=== PATIENT | male | born 1960 | race Caucasian/White ===

== ENCOUNTER → 2018-04-02 17:44 | Outpatient (CLI) | payer OTHER, SELFPAY ==
--- OUTSIDE RECORDS SUMMARY | 2018-05-20 02:34 | XMS RPT_ITS ---
:1960 Author Organization OHIP Care Team Providers Name Role Phone MASCI, AGUSTIN A Referring Unavailable MASCI, AGUSTIN A Referring Unavailable MASCI, AGUSTIN A Referring Unavailable PATRICIA PULLIAM (SAP SECURITY CONSULTANT) Attending Unavailable MASCI, AGUSTIN A Referring Unavailable MASCI, AGUSTIN A Referring Unavailable MASCI, AGUSTIN A Referring Unavailable MASCI, AGUSTIN A Referring Unavailable PATRICIA PULLIAM (SAP SECURITY CONSULTANT) Attending Unavailable MASCI, AGUSTIN A Referring Unavailable MASCI, AGUSTIN A Referring Unavailable MASCI, AGUSTIN A Referring Unavailable MASCI, AGUSTIN A Referring Unavailable PATRICIA PULLIAM (SAP SECURITY CONSULTANT) Attending Unavailable MASCI, AGUSTIN A Referring Unavailable MASCI, AGUSTIN A Referring Unavailable MASCI, AGUSTIN A Referring Unavailable MASCI, AGUSTIN A Attending Unavailable MASCI, AGUSTIN A Referring Unavailable MASCI, AGUSTIN A Admitting Unavailable MASCI, AGUSTIN A Attending Unavailable MASCI, AGUSTIN A Referring Unavailable MASCI, AGUSTIN A Attending Unavailable MASCI, AGUSTIN A Referring Unavailable MASCI, AGUSTIN A Referring Unavailable MASCI, AGUSTIN A Referring Unavailable MASCI, AGUSTIN A Referring Unavailable MASCI, AGUSTIN A Referring Unavailable MASCI, AGUSTIN A Referring Unavailable MASCI, AGUSTIN A Referring Unavailable MASCI, GAUSTIN A Referring Unavailable MASCI, AGUSTIN A Referring Unavailable MASCI, AGUSTIN A Referring Unavailable MASCI, AGUSTIN A Referring Unavailable MASCI, AGUSTIN A Attending Unavailable MASCI, AGUSTIN A Referring Unavailable MASCI, AGUSTIN A Referring Unavailable MASCI, AGUSTIN A Referring Unavailable MASCI, AGUSTIN A Referring Unavailable Masci, Agustin Attending Unavailable [facility] Unavailable Masci, Agustin Referring Unavailable PROBLEMS PROBLEMS DATE TYPE CONDITION / CODE ATTENDING STATUS SOURCE 04/02/2018 Active Multiple myeloma in NA Active [facility] relapse / Clinic Main C90.02(ICD-10) [place] [facility] 03/20/2018 Active Multiple myeloma not NA Active [facility] having achieved Clinic Other remission / [place] C90.00(ICD-10) Repository 03/20/2018 Active Other specified NA Active [facility] disorders of bone, Clinic Other unspecified site / [place] M89.8X9(ICD-10) Repository 09/27/2013 Active Disorder of bone, NA Active [facility] unspecified / Clinic Main M89.9(ICD-10) [place] [facility] 09/27/2013 Active Abnormal findings on NA Active [facility] diagnostic imaging of Clinic Main other parts of [place] musculoskeletal Repository system / R93.7(ICD-10) 10/30/2017 Active Low back pain / NA Active [facility] M54.5(ICD-10) Clinic Main [place] [facility] 07/25/2017 Active Unknown / PULLIAM, Active [facility] UNK(Unknown) PATRICIA (SAP SECURITY CONSULTANT) Clinic Main [place] [facility] 07/19/2017 Active Multiple myeloma in NA Active [facility] remission / Clinic Main C90.01(ICD-10) [place] [facility] PROCEDURES PROCEDURES No Procedure Records FoundRESULTS RESULTS [place] ABS GR + CBC Collected: 05/09/2018 Status: F Source: [place] 8:09 AM [facility] REPOSITORY TYPE CODE TESTS RESULT OUT OF REFERENCE UNITS RANGE LAB WWBC 3.70-11.00 k/uL Low [place] WBC 3.55 LAB WRBC 4.20-6.00 m/uL [place] RBC 4.46 LAB WHGB 13.0-17.0 g/dL [place] Hemoglobin 13.5 LAB WHCT 39.0-51.0 % [place] Hematocrit 40.3 LAB WMCV 80.0-100.0 fL [place] MCV 90.4 LAB WMCH 26.0-34.0 pg [place] MCH 30.3 LAB WMCHC 30.5-36.0 g/dL [place] MCHC 33.5 LAB WRDW 11.5-15.0 % [place] RDW 14.5 LAB WPLT 150-400 k/uL Low [place] Platelet Cnt 89 LAB WMPV 9.0-12.7 fL Low [place] MPV 8.7 Result Comment: Test performed at: [facility] [place], [address] [place] [address] Rd., [place] [address]. LAB ABGRAN 1.45-7.50 k/uL Absol Gran 2.31 Count OBSOLETE Observed: 05/09/2018 Status: COMPLETED Source: [place] 12:00 AM [facility] REPOSITORY Refill (HEMAWS) KEIKAITLYNN BALES ([id number]) 1960 M TRN Date Time Provider Department 05/09/18 AGUSTIN NEWTON During your visit today, we recorded the following information about you: JENNIE VENTURA RN, RN 05/09/2018 10:12 AM Signed Patient phones requesting refills as follows: Pending Prescriptions Disp Refills OXYCODONE-ACETAMINOPHEN 5 MG-325 MG TABLET 90 tablet 0 Sig: Take 1-2 tablets by mouth every 6 hours as needed for up to 14 days. MOR Class: C-II DARI: No Please review and advise. JENNIE VENTURA RN Allergies As of Date: 05/09/2018 Noted Allergy Reaction ZOMETA (ZOLEDRONIC ACID) 11/21/2013 14 - Other: See Comments Comments: Severe chest pain, nausea, body aches, seizures. Tolerated pamidronate. PENICILLINS 09/27/2013 4 - Hives Date Reviewed: 05/02/2018 Reviewed by: Farheen Perez (Rn) FRANCISCO Mendez - Fully Assessed Reason for Visit: Refill Request [94] Visit Diagnoses:Multiple myeloma not having achieved remission (HCC) [C90.00] Bone pain [M89.8X9] Prescriptions as of 05/09/2018 Sig: OXYCODONE-ACETAMINOPHEN 5 MG-* Take 1-2 tablets by mouth gillian* ACYCLOVIR 400 MG TABLET Take 1 tablet by mouth twice * IBUPROFEN PM ORAL Take 2 tablets by mouth at be* ONDANSETRON HCL 8 MG TABLET Take 1 tablet by mouth every * ACETAMINOPHEN 500 MG TABLET Take 1,000 mg by mouth twice * NEBIVOLOL 10 MG TABLET Take 10 mg by mouth once hafsa* Problem List As Of Date 05/09/2018 Noted Resolved Splenomegaly [R16.1] INVALID FOR* Abnormal bone radiograph [R93.7] INVALID FOR* Lytic lesion of bone on x-ray [M89.9] INVALID FOR* Multiple myeloma (HCC) [C90.00] INVALID FOR* More... Chronic back pain greater than 3 months duratio*INVALID FOR* Chronic pain [G89.29] INVALID FOR* More... Autologous bone marrow transplantation status (*INVALID FOR* More... Hypertension [I10] INVALID FOR* More... Immunodeficiency (HCC) [D84.9] INVALID FOR* More... CINV (chemotherapy-induced nausea and vomiting)*INVALID FOR* More... Constipation [K59.00] INVALID FOR* More... Pancytopenia due to chemotherapy (HCC) [D61.810]INVALID FOR* More... Hypokalemia [E87.6] INVALID FOR* More... Transaminitis [R74.0] INVALID FOR* Chronic bilateral low back pain without sciatic*INVALID FOR* Encounter Status:Closed by AGUSTIN NEWTON DO on 05/09/18 PROTEIN ELEC,UR RAND Collected: 05/01/2018 Status: F Source: [place] 11:08 AM [facility] REPOSITORY TYPE CODE TESTS RESULT OUT OF REFERENCE UNITS RANGE LAB UTPR 0-20 mg/dL Protein Urine Random <4 LAB UALB % Albumin 41.0 LAB UA1G >0 % Alpha 1 Globulin 12.2 LAB UA2G % Alpha 2 Globulin 18.7 LAB UBEG % Beta Globulin 19.4 LAB UGAG % Gamma Globulin 8.7 LAB UPEINT Interpretation SEE COMMENT Result Comment: No definitive M protein is identified on protein electrophoresis. LAB UPESTF Staff Reviewed by Review Jony Mesa M.D., PhD ([id number]) Performed By: #### UEPG, URMPA #### [facility] [address] [place] [address] MONOCLONAL PROT UR Collected: 05/01/2018 Status: F Source: [place] 11:08 AM [facility] REPOSITORY TYPE CODE TESTS RESULT OUT OF REFERENCE UNITS RANGE LAB UMPA No M protein is identified. No UMPA M protein is Result identified. LAB UMPSTF UMPA Reviewed by Staff Review Jony Mesa M.D., PhD ([id number]) Performed By: #### UEPGAIDE #### [facility] [address] [place] [id number] PROGRESS Observed: 05/01/2018 Status: COMPLETED Source: [place] 10:34 AM [facility] REPOSITORY HNO ID: [id number] Author: Agustin Newton Service: (none) Author Type: Physician Type: Progress Notes Filed: 05/01/2018 10:50 AM Note Text: Diagnosis: 1) Multiple myeloma t(11;14) IgG kappa. Bone marrow biopsy 2013: [place] restricted plasma cells. Could not quantify well--bloody aspirate, but nearly all plasma cells. Flow cytometry confirmed. FISH positive for IGH/CCND1 t(11;14). Initial bone survey IMPRESSION: 1. Suggest lucent or lytic lesion midshaft RIGHT femur 2. Question of a vague lucency in the distal femur on the LEFT side 3. Lucency projecting over L2 and a lateral view may be due to bowel gas. CT or MRI would be suggested since there was concern with this area on an outside study. 4. No evidence of paraspinal or extrapleural masses. HPI: The patient is a 57-year-old male who had cervical fusion surgery about 4 years prior to presentation here. Had been seeing a [facility] physician for about a year and half for low back pain. [facility] 2013, he was having more pain and presented to the ED at [facility]. CT scan A/P done 09/15/2013 revealed a normal-appearing liver as well as gallbladder next her hepatobiliary system. There was splenomegaly with the spleen measuring 16.5 cm in length. The only other abnormality was a diffuse degenerative changes of visualized lumbar spine with a 2.5 cm lucent lesion on the right side of the L2 vertebral body. There was minimal cortical disruption anterior laterally in the lesion was not present in a prior MRI study of 07/30/2012. CBC was significant only for mild increase in platelets. Had bone scan done as outpatient 09/19/2013 that showed mild increase in activity in mid right femur of questionable etiology. Back pain was the only symptom he had--Started working out more in April and was purposely trying to lose weight. Initial therapy with Rd. Underwent autologous SCT--Patient's stem cells were mobilized with filgrastim and plerixafor. Patient collected CD34/kg 5.60 x 106 over 1 collection day. Nausea, vomiting, diarrhea and headache after plerixafor. 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 Day: +11. Counts recovered. Discharge today. Protocol(s): Auto 3422 1C Melphalan 200 Preparative regimen: Melphalan Mobilization regimen: G+P Stem cell source: apheresis CD34 cell dose (x10e6/kg): 5.6 Tolerated well with mild mucositis. No NF. N/V with melphalan. Previous therapy: 1) Rd. 2) Autologous BMT. 3) Revlimid maintenance through 08/2016. Stopped due to diarrhea. Lab work 02/2018 suggested relapse. PET 03/20/2018: IMPRESSION: 1. ?NECK: No FDG avid neoplastic process. No mass, adenopathy, or fluid collection. 2. ?CHEST: No FDG avid neoplastic process. ?No mass, adenopathy, or fluid collection. 3. ?ABDOMEN/PELVIS: No FDG avid neoplastic process. ?No mass, adenopathy, or fluid collection. 4. ?EXTREMITIES/SKELETON: ?Foci of increased FDG uptake in the humeri and right femur, likely related to the patient's known multiple myeloma. Bone marrow biopsy 03/14/2018: BONE MARROW, ASPIRATE SMEARS AND CLOT SECTION WITH PERIPHERAL BLOOD SMEAR: - CELLULAR MARROW WITH TRILINEAGE HEMATOPOIESIS AND MILD ERYTHROID PREDOMINANCE. - PERSISTENT/RECURRENT PLASMA CELL NEOPLASM, KAPPA MONOTYPIC (LESS THAN 5% OF CLOT SECTION CELLULARITY). - ADEQUATE STORAGE IRON. - SEE COMMENT. Current therapy: 1) Daratumumab/bortezomib/dex. Started 04/04/2018. 1) Pamidronate every 3 months (Zometa caused severe flu-like symptoms). Presents for ongoing management. Interim history: Tolerating therapy very well. Minor infusion reaction day 1. Pain under good control. He takes Percocet on a regular basis and this really helps with his pain. He is able to continue work full-time. No consistent symptoms of sensory neuropathy. Occasional fatigued. PMH, medications and allergies as below personally reviewed by me today. Any changes documented in appropriate section. ROS: Constitutional: See above. Neuro: Denies [place], vertigo, dizziness and imbalance. HEENT: No recent change in voice, vision or hearing. Resp: Denies cough, wheeze and hemoptysis. Denies shortness of breath at rest. CVS: Denies exertional chest pain, PND, orthopnea and LE edema. GI: Denies dysgeusia. Denies symptoms of stomatitis. Denies dysphagia and odynophagia. Denies reflux, n/v and abdominal pain. : Denies dysuria or gross hematuria. No symptoms of bladder outlet obstruction. Endo: Denies hot flashes. Denies polyuria and polydipsia. Denies heat and cold intolerance. Musculoskeletal: See above. Derm: Denies rash. Denies jaundice and diffuse pruritis. Heme: Denies unusual bleeding and unexplained bruising. Psych: Normal mood. PHYSICAL EXAM: Vitals: Blood pressure 132/89, pulse 62, temperature 37.3 ?C (99.1 ?F), temperature source Oral, weight 116.1 kg (256 lb). Well-appearing and in no acute distress. EYES: Sclerae are anicteric bilaterally. ENT: Oral mucosa is unremarkable. There is no sign of thrush or mucositis. NECK: Supple. LYMPHATIC: There is no palpable cervical or supraclavicular adenopathy. RESPIRATORY: Inspiratory breath sounds are of normal intensity in all contreras. No rales, wheezes or rhonchi. CARDIOVASCULAR: Rhythm is regular. Normal intensity S1/S2. There is no gallop or murmur. ABDOMEN: The abdomen is nondistended. No organomegaly. No tenderness. Extremities: No swelling or edema. SKIN: No jaundice or rash. No petechiae. 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 No focal motor weakness. DTRs are symmetric and normal. MUSCULOSKELETAL: No muscle wasting. ASSESSMENT/PLAN: 1) Multiple myeloma. Had lytic bone lesions with no other end organ damage on original presentation. Tolerated and responded to Rd well. Resolution of low level serum MP following first cycle. s/p ASCT. -Maintenance Revlimid stopped after 2 years of therapy secondary to ongoing diarrhea. -Bone marrow biopsy and PET scan 03/2018 suggested relapse disease. -He has mood swings and hyperactivity with higher dose dexamethasone. -Pain well controlled. Plan: -Continue current therapy. -Dex IV when gets Darzalex. -Can stop dexamethasone days 2 and 3 of each Darzalex. -Okay to continue Percocet. -Monthly myeloma labs for now. He understands there will likely be an increase in IgG kappa secondary to daratumumab. Supportive care: No anemia. No hypercalcemia. Standard risk for VTE risk--Off ASA. No ID issues at present--continue acyclovir. Agustin Newton DO CNOVSP Observed: 05/01/2018 Status: COMPLETED Source: [place] 10:30 AM [facility] REPOSITORY Visit (SP) Office ([place]) KAITLYNN CHOUDHURY ([id number]) 1960 M TRN Date Time Provider Department 05/01/18 10:30 AM AGUSTIN NEWTON During your visit today, we recorded the following information about you: Temperature Pulse Blood pressure Weight 99.1 degrees 62/minute 132/89 116.1 kg Agustin Newton DO 05/01/2018 10:50 AM Signed Diagnosis: 1) Multiple myeloma t(11;14) IgG kappa. Bone marrow biopsy 2013: [place] restricted plasma cells. Could not quantify well--bloody aspirate, but nearly all plasma cells. Flow cytometry confirmed. FISH positive for IGH/CCND1 t(11;14). Initial bone survey IMPRESSION: 1. Suggest lucent or lytic lesion midshaft RIGHT femur 2. Question of a vague lucency in the distal femur on the LEFT side 3. Lucency projecting over L2 and a lateral view may be due to bowel gas. CT or MRI would be suggested since there was concern with this area on an outside study. 4. No evidence of paraspinal or extrapleural masses. HPI: The patient is a 57-year-old male who had cervical fusion surgery about 4 years prior to presentation here. Had been seeing a [facility] physician for about a year and half for low back pain. 2013, he was having more pain and presented to the ED at [facility]. CT scan A/P done 09/15/2013 revealed a normal-appearing liver as well as gallbladder next her hepatobiliary system. There was splenomegaly with the spleen measuring 16.5 cm in length. The only other abnormality was a diffuse degenerative changes of visualized lumbar spine with a 2.5 cm lucent lesion on the right side of the L2 vertebral body. There was minimal cortical disruption anterior laterally in the lesion was not present in a prior MRI study of 07/30/2012. CBC was significant only for mild increase in platelets. Had bone scan done as outpatient 09/19/2013 that showed mild increase in activity in mid right femur of questionable etiology. Back pain was the only symptom he had--Started working out more in April and was purposely trying to lose weight. Initial therapy with Rd. Underwent autologous SCT--Patient's stem cells were mobilized with filgrastim and plerixafor. Patient collected CD34/kg 5.60 x 106 over 1 collection day. Nausea, vomiting, diarrhea and headache after plerixafor. 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 Day: +11. Counts recovered. Discharge today. Protocol(s): Auto 3422 1C Melphalan 200 Preparative regimen: Melphalan Mobilization regimen: G+P Stem cell source: apheresis CD34 cell dose (x10e6/kg): 5.6 Tolerated well with mild mucositis. No NF. N/V with melphalan. Previous therapy: 1) Rd. 2) Autologous BMT. 3) Revlimid maintenance through 08/2016. Stopped due to diarrhea. Lab work 02/2018 suggested relapse. PET 03/20/2018: IMPRESSION: 1. ?NECK: No FDG avid neoplastic process. No mass, adenopathy, or fluid collection. 2. ?CHEST: No FDG avid neoplastic process. ?No mass, adenopathy, or fluid collection. 3. ?ABDOMEN/PELVIS: No FDG avid neoplastic process. ?No mass, adenopathy, or fluid collection. 4. ?EXTREMITIES/SKELETON: ?Foci of increased FDG uptake in the humeri and right femur, likely related to the patient's known multiple myeloma. Bone marrow biopsy 03/14/2018: BONE MARROW, ASPIRATE SMEARS AND CLOT SECTION WITH PERIPHERAL BLOOD SMEAR: - CELLULAR MARROW WITH TRILINEAGE HEMATOPOIESIS AND MILD ERYTHROID PREDOMINANCE. - PERSISTENT/RECURRENT PLASMA CELL NEOPLASM, KAPPA MONOTYPIC (LESS THAN 5% OF CLOT SECTION CELLULARITY). - ADEQUATE STORAGE IRON. - SEE COMMENT. Current therapy: 1) Daratumumab/bortezomib/dex. Started 04/04/2018. 1) Pamidronate every 3 months (Zometa caused severe flu-like symptoms). Presents for ongoing management. Interim history: Tolerating therapy very well. Minor infusion reaction day 1. Pain under good control. He takes Percocet on a regular basis and this really helps with his pain. He is able to continue work full-time. No consistent symptoms of sensory neuropathy. Occasional fatigued. PMH, medications and allergies as below personally reviewed by me today. Any changes documented in appropriate section. ROS: Constitutional: See above. Neuro: Denies [place], vertigo, dizziness and imbalance. HEENT: No recent change in voice, vision or hearing. Resp: Denies cough, wheeze and hemoptysis. Denies shortness of breath at rest. CVS: Denies exertional chest pain, PND, orthopnea and LE edema. GI: Denies dysgeusia. Denies symptoms of stomatitis. Denies dysphagia and odynophagia. Denies reflux, n/v and abdominal pain. : Denies dysuria or gross hematuria. No symptoms of bladder outlet obstruction. Endo: Denies hot flashes. Denies polyuria and polydipsia. Denies heat and cold intolerance. Musculoskeletal: See above. Derm: Denies rash. Denies jaundice and diffuse pruritis. Heme: Denies unusual bleeding and unexplained bruising. Psych: Normal mood. PHYSICAL EXAM: Vitals: Blood pressure 132/89, pulse 62, temperature 37.3 ?C (99.1 ?F), temperature source Oral, weight 116.1 kg (256 lb). Well-appearing and in no acute distress. EYES: Sclerae are anicteric bilaterally. ENT: Oral mucosa is unremarkable. There is no sign of thrush or mucositis. NECK: Supple. LYMPHATIC: There is no palpable cervical or supraclavicular adenopathy. RESPIRATORY: Inspiratory breath sounds are of normal intensity in all contreras. No rales, wheezes or rhonchi. CARDIOVASCULAR: Rhythm is regular. Normal intensity S1/S2. There is no gallop or murmur. ABDOMEN: The abdomen is nondistended. No organomegaly. No tenderness. Extremities: No swelling or edema. SKIN: No jaundice or rash. No petechiae. 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 No focal motor weakness. DTRs are symmetric and normal. MUSCULOSKELETAL: No muscle wasting. ASSESSMENT/PLAN: 1) Multiple myeloma. Had lytic bone lesions with no other end organ damage on original presentation. Tolerated and responded to Rd well. Resolution of low level serum MP following first cycle. s/p ASCT. -Maintenance Revlimid stopped after 2 years of therapy secondary to ongoing diarrhea. -Bone marrow biopsy and PET scan 03/2018 suggested relapse disease. -He has mood swings and hyperactivity with higher dose dexamethasone. -Pain well controlled. Plan: -Continue current therapy. -Dex IV when gets Darzalex. -Can stop dexamethasone days 2 and 3 of each Darzalex. -Okay to continue Percocet. -Monthly myeloma labs for now. He understands there will likely be an increase in IgG kappa secondary to daratumumab. Supportive care: No anemia. No hypercalcemia. Standard risk for VTE risk--Off ASA. No ID issues at present--continue acyclovir. Agustin Newton DO Referring Provider: AGUSTIN NEWTON [[id number]] Allergies As of Date: 05/01/2018 Noted Allergy Reaction ZOMETA (ZOLEDRONIC ACID) 11/21/2013 14 - Other: See Comments Comments: Severe chest pain, nausea, body aches, seizures. Tolerated pamidronate. PENICILLINS 09/27/2013 4 - Hives Date Reviewed: 05/01/2018 Reviewed by: Nia German - Fully Assessed Reason for Visit: Established Patient [[id number]] Primary Visit Diagnosis:Multiple myeloma in relapse (HCC) [C90.02] Follow-up and Disposition History Recorded Prescriptions as of 05/01/2018 Sig: OXYCODONE-ACETAMINOPHEN 5 MG-* Take 1-2 tablets by mouth gillian* ACYCLOVIR 400 MG TABLET Take 1 tablet by mouth twice * IBUPROFEN PM ORAL Take 2 tablets by mouth at be* ONDANSETRON HCL 8 MG TABLET Take 1 tablet by mouth every * ACETAMINOPHEN 500 MG TABLET Take 1,000 mg by mouth twice * NEBIVOLOL 10 MG TABLET Take 10 mg by mouth once hafsa* Problem List As Of Date 05/01/2018 Noted Resolved Splenomegaly [R16.1] INVALID FOR* Abnormal bone radiograph [R93.7] INVALID FOR* Lytic lesion of bone on x-ray [M89.9] INVALID FOR* Multiple myeloma (HCC) [C90.00] INVALID FOR* More... Chronic back pain greater than 3 months duratio*INVALID FOR* Chronic pain [G89.29] INVALID FOR* More... Autologous bone marrow transplantation status (*INVALID FOR* More... Hypertension [I10] INVALID FOR* More... Immunodeficiency (HCC) [D84.9] INVALID FOR* More... CINV (chemotherapy-induced nausea and vomiting)*INVALID FOR* More... Constipation [K59.00] INVALID FOR* More... Pancytopenia due to chemotherapy (HCC) [D61.810]INVALID FOR* More... Hypokalemia [E87.6] INVALID FOR* More... Transaminitis [R74.0] INVALID FOR* Chronic bilateral low back pain without sciatic*INVALID FOR* Encounter Status:Closed by AGUSTIN NEWTON DO on 05/01/18 [place] CBC AND DIFF Collected: 05/01/2018 Status: F Source: [place] 10:16 AM [facility] REPOSITORY TYPE CODE TESTS RESULT OUT OF REFERENCE UNITS RANGE LAB WWBC 3.70-11.00 k/uL Low [place] WBC 3.40 LAB WRBC 4.20-6.00 m/uL [place] RBC 4.48 LAB WHGB 13.0-17.0 g/dL [place] Hemoglobin 13.6 LAB WHCT 39.0-51.0 % [place] Hematocrit 40.8 LAB WMCV 80.0-100.0 fL [place] MCV 91.1 LAB WMCH 26.0-34.0 pg [place] MCH 30.4 LAB WMCHC 30.5-36.0 g/dL [place] MCHC 33.3 LAB WRDW 11.5-15.0 % [place] RDW 14.4 LAB WPLT 150-400 k/uL Low [place] Platelet Cnt 127 LAB WMPV 9.0-12.7 fL Low [place] MPV 8.8 Result Comment: Test performed at: [facility] [place], [facility] [address] [place] [address]. LAB WNEUT % [place] Neut% 64.1 LAB WLYMP % [place] Lymp% 24.4 LAB WMONOC % [place]% 11.5 LAB WEOS % [place] Eos% 0.0 LAB WBASO % [place] Baso% 0.0 LAB WANEUT 1.45-7.5 k/uL 0 [place] Abs Neut 2.18 LAB WALYMP 1.00-4.0 k/uL Low 0 [place] Abs Lymp 0.83 LAB WAMONO <0.87 k/uL [place] Abs [place] 0.39 LAB WAEOS <0.46 k/uL [place] Abs Eos <0.03 LAB WABASO <0.11 k/uL [place] Abs Baso <0.03 COMP METABOLIC PANEL Collected: 05/01/2018 Status: F Source: [place] 10:16 AM [facility] REPOSITORY TYPE CODE TESTS RESULT OUT OF REFERENCE UNITS RANGE LAB TP 6.3-8.0 g/dL Protein, Low Total 6.0 LAB ALB 3.9-4.9 g/dL Albumin 4.1 LAB CA 8.5-10.2 mg/dL Calcium, Total 9.2 LAB TBIL 0.2-1.3 mg/dL Bilirubin, Total 0.5 LAB ALKP 38-113 U/L Alkaline Phosphatase 105 LAB AST 14-40 U/L AST 31 LAB GLU 74-99 mg/dL Glucose High 112 LAB BUN 9-24 mg/dL BUN 10 LAB CRET 0.73-1.22 mg/dL Creatinine 1.01 LAB NA 136-144 mmol/L Sodium 136 LAB K 3.7-5.1 mmol/L Potassium 4.0 LAB CL 97-105 mmol/L Chloride 101 LAB CO2 22-30 mmol/L CO2 28 LAB AGAP 9-18 mmol/L Anion Gap Low 7 LAB ALT 10-54 U/L ALT High 64 LAB GFRAA eGFR- >60 Amer. LAB GFRNAA . eGFR-All Other Races >60 Result Comment: eGFR (Estimated GFR) Units of measure: mL/min/1.73 meters squared eGFR is derived from the reexpressed MDRD Study equation using the following parameters: serum creatinine, age, gender and race. The creatinine assay has been calibrated to be traceable to IDMS. An eGFR <60 mL/min/1.73m2 for >3 months is consistent with chronic kidney disease. Refer to KDOQI guidelines for clinical interpretation. In patients with unstable renal function, e.g. those with acute kidney injury, the eGFR may not accurately reflect actual GFR. B2 MICROGLOBULIN Collected: 05/01/2018 Status: F Source: [place] 10:16 AM [facility] REPOSITORY TYPE CODE TESTS RESULT OUT OF REFERENCE UNITS RANGE LAB B2M 0.8-2.2 mg/L B2 Microglobulin High 2.3 Performed By: #### B2RANDY Guallpa SEPG #### [facility] [address], [place] [id number] MONCLNL PROTEIN, SER Collected: 05/01/2018 Status: F Source: [place] 10:16 AM [facility] REPOSITORY TYPE CODE TESTS RESULT OUT OF REFERENCE UNITS RANGE LAB MPAIGG 717-1411 mg/dL Low MPA Serum 487 IgG LAB MPAIGA 78-391 mg/dL Low MPA Serum 11 IgA LAB MPAIGM 53-334 mg/dL Low MPA Serum 16 IgM LAB FKAPS 3.30-19.40 mg/L Low [place], 1.5 Free, Serum Result Comment: Rarely, increased serum free light chains values may not be detected due to antigen excess phenomenon. Results should always be correlated with other laboratory results and clinical findings. LAB FLAMS 5.7-26.3 mg/L Low Lambda, Free, Serum 0.7 Result Comment: Rarely, increased serum free light chains values may not be detected due to antigen excess phenomenon. Results should always be correlated with other laboratory results and clinical findings. LAB KLRAT 0.26-1.65 High K/L Ratio, Serum 2.14 LAB MPAR No M protein is identified. MPA Result Abnormal M protein is Alert present. LAB INTP MPA Interpretation SEE COMMENT Result Comment: Atypical restricted bands are present in the IgG and kappa regions. Consistent with IgG kappa monoclonal gammopathy. LAB MPASTF Staff Reviewed by Review Jony Mesa M.D., PhD ([id number]) Performed By: #### RANDY Lorenzo SEPG #### [facility] [address] [place], [place] [address] PROTEIN ELECTROPHOR. Collected: 05/01/2018 Status: F Source: [place] 10:16 AM [facility] REPOSITORY TYPE CODE TESTS RESULT OUT OF REFERENCE UNITS RANGE LAB TPSPE 6.0-8.4 g/dL Total Protein, SPE 6.0 LAB ALBE 3.37-4.23 gm/dL Albumin 3.51 LAB A1GL 0.18-0.31 gm/dL Alpha 1 Globulin 0.25 LAB A2GL 0.52-0.97 gm/dL Alpha 2 Globulin 0.70 LAB BEGL 0.84-1.36 gm/dL Beta Globulin 0.97 LAB GAGL 0.70-1.44 gm/dL Gamma Globulin Low 0.57 LAB SPEINT Interpretation SEE COMMENT Result Comment: An M protein is identified on protein electrophoresis. See separate immunofixation report for characterization of the M protein. LAB LOC M Protein Gamma Location fraction LAB GPERDL 0.00 gm/dL M Wilder 0.14 High Concentratn LAB SPESTF SPE Staff Review Reviewed by Jony Mesa M.D., PhD ([id number]) Performed By: #### RANDY Lorenzo SEPG #### [facility] [place] [facility] [address] [id number] CNOVSP Observed: 04/25/2018 Status: COMPLETED Source: [place] 9:30 AM [facility] REPOSITORY Visit (SP) Office (HEMAWS) KAITLYNN CHOUDHURY ([id number]) 1960 M TRN Date Time Provider Department 04/25/18 9:30 AM TREATMENT RM 13 [facility] During your visit today, we recorded the following information about you: Temperature Pulse Blood pressure Weight 97.9 degrees 72/minute 132/76 115.2 kg Referring Provider: AGUSTIN NEWTON [[id number]] Allergies As of Date: 04/25/2018 Noted Allergy Reaction ZOMETA (ZOLEDRONIC ACID) 11/21/2013 14 - Other: See Comments Comments: Severe chest pain, nausea, body aches, seizures. Tolerated pamidronate. PENICILLINS 09/27/2013 4 - Hives Date Reviewed: 04/25/2018 Reviewed by: Jennie Ventura RN, RN - Fully Assessed Reason for Visit: Chemotherapy Treatment [771] Primary Visit Diagnosis:Multiple myeloma in relapse (HCC) [C90.02] Order(s):TREATMENT PARAMETERS [[id number]] Order #: [id number]: 1 HEMONC NURSING COMMUNICATION [[id number]] Order #: [id number]: 1 STANDING HEMONC NURSING COMMUNICATION [[id number]] Order #: [id number]: 1 HEMONC NURSING COMMUNICATION [[id number]] Order #: [id number]: 1 STANDING HEMONC NURSING COMMUNICATION [[id number]] Order #: [id number]: 1 STANDING [] dexamethasone 10 mg/NS 50 mL (PYXIS) 10 mg ivpbDisp: Rfl: [] diphenhydrAMINE 50 mg injection (BENADRYL)Disp: Rfl: [] acetaminophen 1,000 mg tab(s) (TYLENOL)Disp: Rfl: [] famotidine 40 mg tab(s) (PEPCID)Disp: Rfl: [] daratumumab 1,800 mg in NaCl 0.9% 500 mL (DARZALEX)Disp: Rfl: NaCl 0.9% iv infusionDisp: Rfl: diphenhydrAMINE 50 mg injection (BENADRYL)Disp: Rfl: hydrocortisone sodium succinate (PF) 100 mg injection (Solu-CORTEF)Disp: Rfl: EPINEPHrine HCl (PF) 1 mg/mL (1 mL) 0.3 mg injectionDisp: Rfl: Prescriptions as of 04/25/2018 Sig: ACETAMINOPHEN 500 MG TABLET Take 1,000 mg by mouth twice * ACYCLOVIR 400 MG TABLET Take 1 tablet by mouth twice * DEXAMETHASONE 4 MG TABLET Take 1 tablet PO with breakfa* IBUPROFEN PM ORAL Take 2 tablets by mouth at be* NEBIVOLOL 10 MG TABLET Take 10 mg by mouth once hafsa* ONDANSETRON HCL 8 MG TABLET Take 1 tablet by mouth every * OXYCODONE-ACETAMINOPHEN 5 MG-* Take 1-2 tablets by mouth gillian* Problem List As Of Date 04/25/2018 Noted Resolved Splenomegaly [R16.1] INVALID FOR* Abnormal bone radiograph [R93.7] INVALID FOR* Lytic lesion of bone on x-ray [M89.9] INVALID FOR* Multiple myeloma (HCC) [C90.00] INVALID FOR* More... Chronic back pain greater than 3 months duratio*INVALID FOR* Chronic pain [G89.29] INVALID FOR* More... Autologous bone marrow transplantation status (*INVALID FOR* More... Hypertension [I10] INVALID FOR* More... Immunodeficiency (HCC) [D84.9] INVALID FOR* More... CINV (chemotherapy-induced nausea and vomiting)*INVALID FOR* More... Constipation [K59.00] INVALID FOR* More... Pancytopenia due to chemotherapy (HCC) [D61.810]INVALID FOR* More... Hypokalemia [E87.6] INVALID FOR* More... Transaminitis [R74.0] INVALID FOR* Chronic bilateral low back pain without sciatic*INVALID FOR* Encounter Status:Closed by JENNIE VENTURA on 04/25/18 [place] ABS GR + CBC Collected: 04/25/2018 Status: F Source: [place] 9:23 AM [facility] REPOSITORY TYPE CODE TESTS RESULT OUT OF REFERENCE UNITS RANGE LAB WWBC 3.70-11.00 k/uL Low [place] WBC 3.33 LAB WRBC 4.20-6.00 m/uL [place] RBC 4.66 LAB WHGB 13.0-17.0 g/dL [place] Hemoglobin 14.2 LAB WHCT 39.0-51.0 % [place] Hematocrit 42.6 LAB WMCV 80.0-100.0 fL [place] MCV 91.4 LAB WMCH 26.0-34.0 pg [place] MCH 30.5 LAB WMCHC 30.5-36.0 g/dL [place] MCHC 33.3 LAB WRDW 11.5-15.0 % [place] RDW 14.7 LAB WPLT 150-400 k/uL [place] Platelet Cnt 108 LAB WMPV 9.0-12.7 fL [place] MPV 9.5 Result Comment: Test performed at: [facility], [address] [place] [address]. LAB ABGRAN 1.45-7.50 k/uL Absol Gran 2.14 Count SHARON ABS GR + CBC Collected: 04/18/2018 Status: F Source: [place] 8:08 AM [facility] REPOSITORY TYPE CODE TESTS RESULT OUT OF REFERENCE UNITS RANGE LAB WWBC 3.70-11.00 k/uL [place] WBC 4.96 LAB WRBC 4.20-6.00 m/uL [place] RBC 4.66 LAB WHGB 13.0-17.0 g/dL [place] Hemoglobin 14.3 LAB WHCT 39.0-51.0 % [place] Hematocrit 42.4 LAB WMCV 80.0-100.0 fL [place] MCV 91.0 LAB WMCH 26.0-34.0 pg [place] MCH 30.7 LAB WMCHC 30.5-36.0 g/dL [place] MCHC 33.7 LAB WRDW 11.5-15.0 % [place] RDW 14.6 LAB WPLT 150-400 k/uL Low [place] Platelet Cnt 116 LAB WMPV 9.0-12.7 fL [place] MPV 9.2 Result Comment: Test performed at: [facility] [place], [address] [place] [address]. LAB ABGRAN 1.45-7.50 k/uL Absol Gran 3.71 Count CNPN Observed: 04/12/2018 Status: COMPLETED Source: [place] 12:00 AM [facility] REPOSITORY Telephone (HEMAVN) KAITLYNN CHOUDHURY ([id number]) 1960 M TRN Date Time Provider Department 04/12/18 MADELINE LAUREANO (RN) HEMAVN During your visit today, we recorded the following information about you: Madeline Laureano RN, RN 04/12/2018 12:05 PM Signed TOXICITY CHECK Does patient have: Headache: Yes, intermittently since last night. No dizziness or lightheadedness. Goes away when he takes his pain medication. Appetite: no changes in appetite, appetite good Nausea: No Vomiting: No Fever: No Chills: No Cough: No Sore throat: No Heartburn: No. Diarrhea: yes, states it starts usually the 3rd day after chemo. States maybe 1-2 stools a day. Thinks it may be related to his diet than the chemo. He does not feel dehydrated. Drinks 6-7 glasses of fluids a day. Urine is not concentrated. He ran out of the lomotil that he had. Would like another prescription for it to use prn. Dr. Newton and nurse milli notified. Constipation: No Edema: No Energy level: Low Shortness of breath: No Pain: Yes, pain rated 6 on a scale of 0-10 (0=none, 10=worst). Location: legs. Pain medication helps this. Madeline Laureano RN April 12, 2018 12:01 PM Agustin Newton DO 04/12/2018 12:19 PM Signed Please see the note below. Madeline had asked me this upper message to send a new prescription for Lomotil. Since the diarrhea may not be completely due to chemotherapy, I recommend a trial of Imodium first. DO Rosy Mckay LPN 04/12/2018 12:30 PM Signed Patient aware and will trial Imodium first. Rosy Blackmon LPN Allergies As of Date: 04/12/2018 Noted Allergy Reaction ZOMETA (ZOLEDRONIC ACID) 11/21/2013 14 - Other: See Comments Comments: Severe chest pain, nausea, body aches, seizures. Tolerated pamidronate. PENICILLINS 09/27/2013 4 - Hives Date Reviewed: 04/11/2018 Reviewed by: Millicent Noble - Fully Assessed Reason for Visit: Care Coordination [3499] Cmt: toxicity check Prescriptions as of 04/12/2018 Sig: ACETAMINOPHEN 500 MG TABLET Take 1,000 mg by mouth twice * ACYCLOVIR 400 MG TABLET Take 1 tablet by mouth twice * DEXAMETHASONE 4 MG TABLET Take 1 tablet PO with breakfa* IBUPROFEN PM ORAL Take 2 tablets by mouth at be* NEBIVOLOL 10 MG TABLET Take 10 mg by mouth once hafsa* ONDANSETRON HCL 8 MG TABLET Take 1 tablet by mouth every * OXYCODONE-ACETAMINOPHEN 5 MG-* Take 1-2 tablets by mouth gillian* Problem List As Of Date 04/12/2018 Noted Resolved Splenomegaly [R16.1] INVALID FOR* Abnormal bone radiograph [R93.7] INVALID FOR* Lytic lesion of bone on x-ray [M89.9] INVALID FOR* Multiple myeloma (HCC) [C90.00] INVALID FOR* More... Chronic back pain greater than 3 months duratio*INVALID FOR* Chronic pain [G89.29] INVALID FOR* More... Autologous bone marrow transplantation status (*INVALID FOR* More... Hypertension [I10] INVALID FOR* More... Immunodeficiency (HCC) [D84.9] INVALID FOR* More... CINV (chemotherapy-induced nausea and vomiting)*INVALID FOR* More... Constipation [K59.00] INVALID FOR* More... Pancytopenia due to chemotherapy (HCC) [D61.810]INVALID FOR* More... Hypokalemia [E87.6] INVALID FOR* More... Transaminitis [R74.0] INVALID FOR* Chronic bilateral low back pain without sciatic*INVALID FOR* Encounter Status:Closed by MADELINE LAUREANO on 04/12/18 [place] ABS GR + CBC Collected: 04/11/2018 Status: F Source: [place] 8:03 AM [facility] REPOSITORY TYPE CODE TESTS RESULT OUT OF REFERENCE UNITS RANGE LAB WWBC 3.70-11.00 k/uL [place] WBC 3.48 LAB WRBC 4.20-6.00 m/uL [place] RBC 4.33 LAB WHGB 13.0-17.0 g/dL [place] Hemoglobin 13.1 LAB WHCT 39.0-51.0 % [place] Hematocrit 39.0 LAB WMCV 80.0-100.0 fL [place] MCV 90.1 LAB WMCH 26.0-34.0 pg [place] MCH 30.3 LAB WMCHC 30.5-36.0 g/dL [place] MCHC 33.6 LAB WRDW 11.5-15.0 % [place] RDW 14.3 LAB WPLT 150-400 k/uL [place] Platelet Cnt 128 LAB WMPV 9.0-12.7 fL [place] MPV 8.5 Result Comment: Test performed at: [facility], [address] [place] [address] Rd[address] [place] [address]. LAB ABGRAN 1.45-7.50 k/uL Absol Gran 2.09 Count CNPN Observed: 04/05/2018 Status: COMPLETED Source: [place] 12:00 AM [facility] REPOSITORY Telephone (HEMAVN) KEIKAITLYNN BALES ([id number]) 1960 M TRN Date Time Provider Department 04/05/18 MADELINE LAUREANO (RN) [place] During your visit today, we recorded the following information about you: Madeline Laureano RN, RN 04/05/2018 3:03 PM Signed CYCLE 1/DAY 1 POST TREATMENT CALL Today's date: April 05, 2018 Treatment Regimen: Darzalex/Velcade C1D1 Date: 04/04/18 Called patient to follow-up on symptom management. Spoke with patient. Patient reports treatment related symptoms: Yes. Pt reports feeling good today. No nausea/vomiting or diarrhea. States last night he noticed a 2 red spot on his abdomen where he received the chemotherapy shot yesterday. Denies swelling, pain, burning or itching. Dr. Newton and office staff notified. Patient reports adequate fluid and nutrition intake: NO. States drinking without difficulty. States just doesn't feel hungry. Encouraged small frequent meals. Reinforced applicable treatment education based on current and anticipated symptoms. Patient instructed to contact office or after hours Hematology/Oncology fellow for: temperature ? 100.4; questions or concerns. Contact information provided. FRANCISCO Tolliver DO 04/05/2018 3:04 PM Signed I believe this is just a localized reaction of Velcade and is of no consequence. DO Kate Mckay LPN, KENN 04/05/2018 3:41 PM Signed Pt. Notified of physician response, voiced understanding. Instructed to keep eye on area. Kate Mcgee LPN Allergies As of Date: 04/05/2018 Noted Allergy Reaction ZOMETA (ZOLEDRONIC ACID) 11/21/2013 14 - Other: See Comments Comments: Severe chest pain, nausea, body aches, seizures. Tolerated pamidronate. PENICILLINS 09/27/2013 4 - Hives Date Reviewed: 04/04/2018 Reviewed by: Ludmila Guallpa (Rn) FRANCISCO Norman - Fully Assessed Reason for Visit: Care Coordination [3491] Cmt: C1D1 call Prescriptions as of 04/05/2018 Sig: ACETAMINOPHEN 500 MG TABLET Take 1,000 mg by mouth twice * ACYCLOVIR 400 MG TABLET Take 1 tablet by mouth twice * DEXAMETHASONE 4 MG TABLET Take 1 tablet PO with breakfa* IBUPROFEN PM ORAL Take 2 tablets by mouth at be* NEBIVOLOL 10 MG TABLET Take 10 mg by mouth once hafsa* ONDANSETRON HCL 8 MG TABLET Take 1 tablet by mouth every * OXYCODONE-ACETAMINOPHEN 5 MG-* Take 1-2 tablets by mouth gillian* Problem List As Of Date 04/05/2018 Noted Resolved Splenomegaly [R16.1] INVALID FOR* Abnormal bone radiograph [R93.7] INVALID FOR* Lytic lesion of bone on x-ray [M89.9] INVALID FOR* Multiple myeloma (HCC) [C90.00] INVALID FOR* More... Chronic back pain greater than 3 months duratio*INVALID FOR* Chronic pain [G89.29] INVALID FOR* More... Autologous bone marrow transplantation status (*INVALID FOR* More... Hypertension [I10] INVALID FOR* More... Immunodeficiency (HCC) [D84.9] INVALID FOR* More... CINV (chemotherapy-induced nausea and vomiting)*INVALID FOR* More... Constipation [K59.00] INVALID FOR* More... Pancytopenia due to chemotherapy (HCC) [D61.810]INVALID FOR* More... Hypokalemia [E87.6] INVALID FOR* More... Transaminitis [R74.0] INVALID FOR* Chronic bilateral low back pain without sciatic*INVALID FOR* Encounter Status:Closed by MADELINE LAUREANO on 04/05/18 PROGRESS Observed: 04/04/2018 Status: COMPLETED Source: [place] 10:28 AM [facility] [place] REPOSITORY HNO ID: [id number] Author: Nidhi Guerra (Sw) Service: (none) Author Type: Pattern Layout Worker Type: Progress Notes Filed: 04/04/2018 10:32 AM Note Text: Social Work Problem Referral Note INFORMATION/REFERRAL : Kaitlynn Choudhury 57 year old male was referred by family - Name: spouse to [facility] Social Work for the following reason(s): FMLA PERSONS INTERVIEWED: patient and family - Name: spouse INTERVENTION: Information AND Referral Service Co-ordination Affect/Mood: The patient is noted as appropriate IDENTIFIED PROBLEMS/NEEDS: FMLA Intervention/Referral to be provided:Arrangements made for continuity of care IMPRESSION/PLAN: CHRISTOPHE met with patient and his spouse to discuss spouse's FMLA needs. CHRISTOPHE completed and provided to doctor to review and sign. SW then provided back to patient's spouse and provided business card as well in case other needs come up. The paperwork provided was the FMLA paperwork for the patient, not the family member of the patient. CHRISTOPHE stated the forms are very similar, but to have them fax over the correct forms if needed. She is agreeable. Patient denies other needs. F/U APPOINTMENT: JULIO Steiner CNSW Observed: 04/04/2018 Status: COMPLETED Source: [place] 12:00 AM [facility] REPOSITORY Social Work ([place]) KAITLYNN CHOUDHURY ([id number]) 1960 M TRN Date Time Provider Department 04/04/18 NIDHI GUERRA) [place] During your visit today, we recorded the following information about you: JULIO Black 04/04/2018 10:32 AM Signed Social Work Problem Referral Note INFORMATION/REFERRAL : Kaitlynn Choudhury 57 year old male was referred by family - Name: spouse to [facility] Social Work for the following reason(s): FMLA PERSONS INTERVIEWED: patient and family - Name: spouse INTERVENTION: Information AND Referral Service Co-ordination Affect/Mood: The patient is noted as appropriate IDENTIFIED PROBLEMS/NEEDS: FMLA Intervention/Referral to be provided:Arrangements made for continuity of care IMPRESSION/PLAN: CHRISTOPHE met with patient and his spouse to discuss spouse's FMLA needs. CHRISTOPHE completed and provided to doctor to review and sign. SW then provided back to patient's spouse and provided business card as well in case other needs come up. The paperwork provided was the FMLA paperwork for the patient, not the family member of the patient. CHRISTOPHE stated the forms are very similar, but to have them fax over the correct forms if needed. She is agreeable. Patient denies other needs. F/U APPOINTMENT: JULIO Steiner Allergies As of Date: 04/04/2018 Noted Allergy Reaction ZOMETA (ZOLEDRONIC ACID) 11/21/2013 14 - Other: See Comments Comments: Severe chest pain, nausea, body aches, seizures. Tolerated pamidronate. PENICILLINS 09/27/2013 4 - Hives Date Reviewed: 04/04/2018 Reviewed by: Ludmila Guallpa (Rn) FRANCISCO Norman - Fully Assessed Reason for Visit: Social Work Services [507] Prescriptions as of 04/04/2018 Sig: ACETAMINOPHEN 500 MG TABLET Take 1,000 mg by mouth twice * ACYCLOVIR 400 MG TABLET Take 1 tablet by mouth twice * DEXAMETHASONE 4 MG TABLET Take 1 tablet PO with breakfa* IBUPROFEN PM ORAL Take 2 tablets by mouth at be* NEBIVOLOL 10 MG TABLET Take 10 mg by mouth once hafsa* ONDANSETRON HCL 8 MG TABLET Take 1 tablet by mouth every * OXYCODONE-ACETAMINOPHEN 5 MG-* Take 1-2 tablets by mouth gillian* Problem List As Of Date 04/04/2018 Noted Resolved Splenomegaly [R16.1] INVALID FOR* Abnormal bone radiograph [R93.7] INVALID FOR* Lytic lesion of bone on x-ray [M89.9] INVALID FOR* Multiple myeloma (HCC) [C90.00] INVALID FOR* More... Chronic back pain greater than 3 months duratio*INVALID FOR* Chronic pain [G89.29] INVALID FOR* More... Autologous bone marrow transplantation status (*INVALID FOR* More... Hypertension [I10] INVALID FOR* More... Immunodeficiency (HCC) [D84.9] INVALID FOR* More... CINV (chemotherapy-induced nausea and vomiting)*INVALID FOR* More... Constipation [K59.00] INVALID FOR* More... Pancytopenia due to chemotherapy (HCC) [D61.810]INVALID FOR* More... Hypokalemia [E87.6] INVALID FOR* More... Transaminitis [R74.0] INVALID FOR* Chronic bilateral low back pain without sciatic*INVALID FOR* Encounter Status:Closed by NIDHI GUERRA on 04/04/18 PROGRESS Observed: 04/02/2018 Status: COMPLETED Source: [place] 5:17 PM [facility] REPOSITORY HNO ID: [id number] Author: Genny (Rn) FRANCISCO Zhang Service: (none) Author Type: Registered Nurse Type: Progress Notes Filed: 04/02/2018 5:24 PM Note Text: AMBULATORY PATIENT EDUCATION NOTE TOPIC: Immunotherapy READINESS TO LEARN COGNITIVE ABILITY: Alert and oriented MOTIVATION TO LEARN: Eager Interested FAMILY SUPPORT: High - Very involved in pt care INSTRUCTION PROVIDED TO: Patient PATIENT LEARNS BEST BY: Individual Instruction Written Instruction - Hand-outs Verbal Instruction FACTORS AFFECTING LEARNING: None PHYSICAL LIMITATIONS AFFECTING LEARNING: None LEARNING RESPONSE DIAGNOSIS: Multiple Myeloma METHOD OF INSTRUCTION: Individual instruction Written instruction - handouts Verbal instruction will reinforce at treatment PATIENT / FAMILY RESPONSE: Verbalizes understanding of: CHEMOTHERAPY-Regimen, toxicity and side effects FOLLOW-UP PLAN: Reinforce - Repeat previous content Follow up phone call. SUPPLEMENTAL MATERIAL: Patient instructions given for: Velcade and Darzalex, including side effect information from http://chemocare.[employer] REFERRAL (RECOMMENDATION): Pattern Layout Worker Electronically Signed By Genny Zhang RN In the department of : Hematology/Oncology PROTEIN ELEC,UR RAND Collected: 04/02/2018 Status: F Source: [place] 3:41 PM [facility] REPOSITORY TYPE CODE TESTS RESULT OUT OF REFERENCE UNITS RANGE LAB UTPR 0-20 mg/dL Protein Urine Random 6 LAB UALB % Albumin 42.0 LAB UA1G >0 % Alpha 1 Globulin 1.5 LAB UA2G % Alpha 2 Globulin 14.6 LAB UBEG % Beta Globulin 32.0 LAB UGAG % Gamma Globulin 10.0 LAB UPEINT Interpretation SEE COMMENT Result Comment: No definitive M protein is identified on protein electrophoresis. LAB UPESTF Staff Reviewed by Review Qasim Hernadez M.D. ([id number]) Performed By: #### UEPG, URMPA #### [facility] [address] [place] [address] MONOCLONAL PROT UR Collected: 04/02/2018 Status: F Source: [place] 3:41 PM [facility] REPOSITORY TYPE CODE TESTS RESULT OUT OF REFERENCE UNITS RANGE LAB UMPA No M protein is identified. No UMPA M protein is Result identified. LAB UMPSTF UMPA Reviewed by Staff Review Qasim Hernadez M.D. ([id number]) Performed By: #### UEPG, URMPA #### [facility] [address] [place], [place] [address] B2 MICROGLOBULIN Collected: 04/02/2018 Status: F Source: [place] 3:40 PM [facility] REPOSITORY TYPE CODE TESTS RESULT OUT OF REFERENCE UNITS RANGE LAB B2M 0.8-2.2 mg/L B2 Microglobulin 2.2 Performed By: #### B2M, SERMPA, SEPG #### [facility] [address] [place], [place] [address] MONCLNL PROTEIN, SER Collected: 04/02/2018 Status: F Source: [place] 3:40 PM [facility] REPOSITORY TYPE CODE TESTS RESULT OUT OF REFERENCE UNITS RANGE LAB MPAIGG 717-1411 mg/dL Low MPA Serum 633 IgG LAB MPAIGA 78-391 mg/dL Low MPA Serum 38 IgA LAB MPAIGM 53-334 mg/dL Low MPA Serum 32 IgM LAB FKAPS 3.30-19.40 mg/L [place], 6.5 Free, Serum Result Comment: Rarely, increased serum free light chains values may not be detected due to antigen excess phenomenon. Results should always be correlated with other laboratory results and clinical findings. LAB FLAMS 5.7-26.3 mg/L Low Lambda, Free, Serum 4.4 Result Comment: Rarely, increased serum free light chains values may not be detected due to antigen excess phenomenon. Results should always be correlated with other laboratory results and clinical findings. LAB KLRAT 0.26-1.65 K/L Ratio, Serum 1.48 LAB MPAR No M protein is identified. MPA Result Abnormal M protein is Alert present. LAB INTP MPA Interpretation SEE COMMENT Result Comment: Atypical restricted bands are present in the IgG and kappa regions. Consistent with IgG kappa monoclonal gammopathy. LAB MPASTF Staff Reviewed by Review Qasim Hernadez M.D. ([id number]) Performed By: #### B2M, SERMPA, SEPG #### [facility] [address] [place], [place] [address] PROTEIN ELECTROPHOR. Collected: 04/02/2018 Status: F Source: [place] 3:40 PM [facility] REPOSITORY TYPE CODE TESTS RESULT OUT OF REFERENCE UNITS RANGE LAB TPSPE 6.0-8.4 g/dL Total Protein, SPE 6.5 LAB ALBE 3.37-4.23 gm/dL Albumin 3.92 LAB A1GL 0.18-0.31 gm/dL Alpha 1 Globulin 0.24 LAB A2GL 0.52-0.97 gm/dL Alpha 2 Globulin 0.59 LAB BEGL 0.84-1.36 gm/dL Beta Globulin 1.04 LAB GAGL 0.70-1.44 gm/dL Gamma Globulin 0.70 LAB SPEINT Interpretation SEE COMMENT Result Comment: No definitive M protein is identified on protein electrophoresis. LAB LOC M Protein N/A Location LAB GPERDL 0.00 gm/dL M Wilder 0.00 Concentratn LAB SPESTF SPE Staff Review Reviewed by Qasim Hernadez M.D. ([id number]) Performed By: #### RANDY Lorenzo SEPG #### [facility] [address] [id number] [place] ABS GR + CBC Collected: 04/02/2018 Status: F Source: [place] 3:39 PM [facility] [place] REPOSITORY TYPE CODE TESTS RESULT OUT OF REFERENCE UNITS RANGE LAB WWBC 3.70-11.00 k/uL [place] WBC 4.76 LAB WRBC 4.20-6.00 m/uL [place] RBC 4.46 LAB WHGB 13.0-17.0 g/dL [place] Hemoglobin 13.6 LAB WHCT 39.0-51.0 % [place] Hematocrit 40.2 LAB WMCV 80.0-100.0 fL [place] MCV 90.1 LAB WMCH 26.0-34.0 pg [place] MCH 30.5 LAB WMCHC 30.5-36.0 g/dL [place] MCHC 33.8 LAB WRDW 11.5-15.0 % [place] RDW 14.0 LAB WPLT 150-400 k/uL [place] Platelet Cnt 156 LAB WMPV 9.0-12.7 fL Low [place] MPV 8.6 Result Comment: Test performed at: [facility], [address] [place] [address]. LAB ABGRAN 1.45-7.50 k/uL Absol Gran 3.13 Count COMP METABOLIC PANEL Collected: 04/02/2018 Status: F Source: [place] 3:39 PM [facility] REPOSITORY TYPE CODE TESTS RESULT OUT OF REFERENCE UNITS RANGE LAB TP 6.3-8.0 g/dL Protein, Total 6.3 LAB ALB 3.9-4.9 g/dL Albumin 4.4 LAB CA 8.5-10.2 mg/dL Calcium, Total 9.4 LAB TBIL 0.2-1.3 mg/dL Bilirubin, Total 0.5 LAB ALKP 38-113 U/L Alkaline Phosphatase 82 LAB AST 14-40 U/L AST 23 LAB GLU 74-99 mg/dL Glucose High 107 LAB BUN 9-24 mg/dL BUN 14 LAB CRET 0.73-1.22 mg/dL Creatinine 1.03 LAB NA 136-144 mmol/L Sodium 138 LAB K 3.7-5.1 mmol/L Potassium Low 3.5 LAB CL 97-105 mmol/L Chloride 102 LAB CO2 22-30 mmol/L CO2 26 LAB AGAP 9-18 mmol/L Anion Gap 10 LAB ALT 10-54 U/L ALT 30 LAB GFRAA eGFR- >60 Amer. LAB GFRNAA . eGFR-All Other Races >60 Result Comment: eGFR (Estimated GFR) Units of measure: mL/min/1.73 meters squared eGFR is derived from the reexpressed MDRD Study equation using the following parameters: serum creatinine, age, gender and race. The creatinine assay has been calibrated to be traceable to IDMS. An eGFR <60 mL/min/1.73m2 for >3 months is consistent with chronic kidney disease. Refer to KDOQI guidelines for clinical interpretation. In patients with unstable renal function, e.g. those with acute kidney injury, the eGFR may not accurately reflect actual GFR. TYPE AND SCREEN Collected: 04/02/2018 Status: F Source: [place] 3:39 PM [facility] REPOSITORY Order Comment: BASELINE T AND S- DARZALEX START Reason for Type AND Screen/Red Cells: ROUTINE TYPE CODE TESTS RESULT OUT OF RANGE REFERENCE UNITS LAB B10.0800 AB Normal BLOOD TYPE GEL POSITIVE LAB B100.4000 Normal Antibody NEGATIVE Screen Performed By: #### B101.7450 #### [facility] [place] [place], [address] PROGRESS Observed: 03/26/2018 Status: COMPLETED Source: [place] [address]:18 AM [facility] REPOSITORY HNO ID: [id number] Author: Agustin Newton Service: (none) Author Type: Physician Type: Progress Notes Filed: 03/28/2018 2:00 PM Note Text: Diagnosis: 1) Multiple myeloma t(11;14) IgG kappa. Bone marrow biopsy 2013: [place] restricted plasma cells. Could not quantify well--bloody aspirate, but nearly all plasma cells. Flow cytometry confirmed. FISH positive for IGH/CCND1 t(11;14). Initial bone survey IMPRESSION: 1. Suggest lucent or lytic lesion midshaft RIGHT femur 2. Question of a vague lucency in the distal femur on the LEFT side 3. Lucency projecting over L2 and a lateral view may be due to bowel gas. CT or MRI would be suggested since there was concern with this area on an outside study. 4. No evidence of paraspinal or extrapleural masses. HPI: The patient is a 57-year-old male who had cervical fusion surgery about 4 years prior to presentation here. Had been seeing a [facility] physician for about a year and half for low back pain. 2013, he was having more pain and presented to the ED at [facility]. CT scan A/P done 09/15/2013 revealed a normal-appearing liver as well as gallbladder next her hepatobiliary system. There was splenomegaly with the spleen measuring 16.5 cm in length. The only other abnormality was a diffuse degenerative changes of visualized lumbar spine with a 2.5 cm lucent lesion on the right side of the L2 vertebral body. There was minimal cortical disruption anterior laterally in the lesion was not present in a prior MRI study of 07/30/2012. CBC was significant only for mild increase in platelets. Had bone scan done as outpatient 09/19/2013 that showed mild increase in activity in mid right femur of questionable etiology. Back pain was the only symptom he had--Started working out more in April and was purposely trying to lose weight. Initial therapy with Rd. Underwent autologous SCT--Patient's stem cells were mobilized with filgrastim and plerixafor. Patient collected CD34/kg 5.60 x 106 over 1 collection day. Nausea, vomiting, diarrhea and headache after plerixafor. 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 Day: +11. Counts recovered. Discharge today. Protocol(s): Auto 3422 1C Melphalan 200 Preparative regimen: Melphalan Mobilization regimen: G+P Stem cell source: apheresis CD34 cell dose (x10e6/kg): 5.6 Tolerated well with mild mucositis. No NF. N/V with melphalan. Previous therapy: 1) Rd. 2) Autologous BMT. 3) Revlimid maintenance through 08/2016. Stopped due to diarrhea. Current therapy: 1) Pamidronate every 3 months (Zometa caused severe flu-like symptoms). Presents for ongoing management. Interim history: Recent lab work showed atypical IgG kappa in the serum. The amount was not quantifiable. Additionally he'd been having an increase in bone pain. PET 03/20/2018: IMPRESSION: 1. ?NECK: No FDG avid neoplastic process. No mass, adenopathy, or fluid collection. 2. ?CHEST: No FDG avid neoplastic process. ?No mass, adenopathy, or fluid collection. 3. ?ABDOMEN/PELVIS: No FDG avid neoplastic process. ?No mass, adenopathy, or fluid collection. 4. ?EXTREMITIES/SKELETON: ?Foci of increased FDG uptake in the humeri and right femur, likely related to the patient's known multiple myeloma. He has no complaints today. He takes Percocet on a regular basis and this really helps with his pain. He is able to work full-time doing so. PMH, medications and allergies as below personally reviewed by me today. Any changes documented in appropriate section. ROS: Constitutional: See above. Neuro: Denies [place], vertigo, dizziness and imbalance. HEENT: No recent change in voice, vision or hearing. Resp: Denies cough, wheeze and hemoptysis. Denies shortness of breath at rest. CVS: Denies exertional chest pain, PND, orthopnea and LE edema. GI: Denies dysgeusia. Denies symptoms of stomatitis. Denies dysphagia and odynophagia. Denies reflux, n/v and abdominal pain. : Denies dysuria or gross hematuria. No symptoms of bladder outlet obstruction. Endo: Denies hot flashes. Denies polyuria and polydipsia. Denies heat and cold intolerance. Musculoskeletal: See above. Derm: Denies rash. Denies jaundice and diffuse pruritis. Heme: Denies unusual bleeding and unexplained bruising. Psych: Normal mood. PHYSICAL EXAM: Vitals: Blood pressure 143/87, pulse (!) 56, temperature 36.7 ?C (98.1 ?F), temperature source Temporal Artery, weight 114.8 kg (253 lb). Well-appearing and in no acute distress. EYES: Sclerae are anicteric bilaterally. ENT: Oral mucosa is unremarkable. NECK: Supple. LYMPHATIC: There is no palpable cervical, supraclavicular or axillary adenopathy. RESPIRATORY: Good air entry. No wheeze, rhonchi or rales. CARDIOVASCULAR: Rhythm is regular. Normal intensity S1/S2. There is no gallop or murmur. ABDOMEN: The abdomen is nondistended. No splenomegaly. No tenderness. Extremities: Free of edema. SKIN: No jaundice or rash. No petechiae. 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 No focal motor weakness. DTRs symmetrical and normal. ASSESSMENT/PLAN: 1) Multiple myeloma. Had lytic bone lesions with no other end organ damage on original presentation. Tolerated and responded to Rd well. Resolution of low level serum MP following first cycle. s/p ASCT. -Maintenance Revlimid stopped after 2 years of therapy secondary to ongoing diarrhea. -Bone marrow biopsy and PET scan suggest relapse disease. -Discussed next line therapy and recommended daratumumab/bortezomib/dex. -I discussed the rationale, logistics, potential risks (including ), benefits and alternatives, as well as the personnel involved in the administration of daratumumab/bortezomib/dexamethasone. I answered his questions in detail and he verbalized understanding and agreed with the recommended therapy. Please see the electronic consent document for details of doses and schedule. -He has mood swings and hyperactivity with dex. -Pain well controlled. Plan: -Begin therapy in next week or two. -Dex IV when gets Darzalex. -Dex 4 mg PO in am days 2 and 3 of each Darzalex. -Okay to continue Percocet. -Monthly myeloma labs. Supportive care: No anemia. No hypercalcemia. Standard risk for VTE risk--Off ASA. No ID issues at present--restart acyclovir. Agustin Newton DO CNOVSP Observed: 03/26/2018 Status: COMPLETED Source: [place] 10:10 AM [facility] REPOSITORY Visit (SP) Office (HEMAWS) KAITLYNN CHOUDHURY ([id number]) 1960 M TRN Date Time Provider Department 03/26/18 10:10 AM AGUSTIN NEWTON During your visit today, we recorded the following information about you: Temperature Pulse Blood pressure Weight 98.1 degrees 56/minute 143/87 114.8 kg Height 1.803 m Rosy Blackmon LPN 03/26/2018 10:39 AM Signed Est patient. Discuss recent PET Scan and BMBX results. Rosy Newton DO 03/28/2018 2:00 PM Signed Diagnosis: 1) Multiple myeloma t(11;14) IgG kappa. Bone marrow biopsy 2013: [place] restricted plasma cells. Could not quantify well--bloody aspirate, but nearly all plasma cells. Flow cytometry confirmed. FISH positive for IGH/CCND1 t(11;14). Initial bone survey IMPRESSION: 1. Suggest lucent or lytic lesion midshaft RIGHT femur 2. Question of a vague lucency in the distal femur on the LEFT side 3. Lucency projecting over L2 and a lateral view may be due to bowel gas. CT or MRI would be suggested since there was concern with this area on an outside study. 4. No evidence of paraspinal or extrapleural masses. HPI: The patient is a 57-year-old male who had cervical fusion surgery about 4 years prior to presentation here. Had been seeing a [facility] physician for about a year and half for low back pain. 2013, he was having more pain and presented to the ED at [facility]. CT scan A/P done 09/15/2013 revealed a normal-appearing liver as well as gallbladder next her hepatobiliary system. There was splenomegaly with the spleen measuring 16.5 cm in length. The only other abnormality was a diffuse degenerative changes of visualized lumbar spine with a 2.5 cm lucent lesion on the right side of the L2 vertebral body. There was minimal cortical disruption anterior laterally in the lesion was not present in a prior MRI study of 07/30/2012. CBC was significant only for mild increase in platelets. Had bone scan done as outpatient 09/19/2013 that showed mild increase in activity in mid right femur of questionable etiology. Back pain was the only symptom he had--Started working out more in April and was purposely trying to lose weight. Initial therapy with Rd. Underwent autologous SCT--Patient's stem cells were mobilized with filgrastim and plerixafor. Patient collected CD34/kg 5.60 x 106 over 1 collection day. Nausea, vomiting, diarrhea and headache after plerixafor. 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 Day: +11. Counts recovered. Discharge today. Protocol(s): Auto 3422 1C Melphalan 200 Preparative regimen: Melphalan Mobilization regimen: G+P Stem cell source: apheresis CD34 cell dose (x10e6/kg): 5.6 Tolerated well with mild mucositis. No NF. N/V with melphalan. Previous therapy: 1) Rd. 2) Autologous BMT. 3) Revlimid maintenance through 08/2016. Stopped due to diarrhea. Current therapy: 1) Pamidronate every 3 months (Zometa caused severe flu-like symptoms). Presents for ongoing management. Interim history: Recent lab work showed atypical IgG kappa in the serum. The amount was not quantifiable. Additionally he'd been having an increase in bone pain. PET 03/20/2018: IMPRESSION: 1. ?NECK: No FDG avid neoplastic process. No mass, adenopathy, or fluid collection. 2. ?CHEST: No FDG avid neoplastic process. ?No mass, adenopathy, or fluid collection. 3. ?ABDOMEN/PELVIS: No FDG avid neoplastic process. ?No mass, adenopathy, or fluid collection. 4. ?EXTREMITIES/SKELETON: ?Foci of increased FDG uptake in the humeri and right femur, likely related to the patient's known multiple myeloma. He has no complaints today. He takes Percocet on a regular basis and this really helps with his pain. He is able to work full-time doing so. PMH, medications and allergies as below personally reviewed by me today. Any changes documented in appropriate section. ROS: Constitutional: See above. Neuro: Denies [place], vertigo, dizziness and imbalance. HEENT: No recent change in voice, vision or hearing. Resp: Denies cough, wheeze and hemoptysis. Denies shortness of breath at rest. CVS: Denies exertional chest pain, PND, orthopnea and LE edema. GI: Denies dysgeusia. Denies symptoms of stomatitis. Denies dysphagia and odynophagia. Denies reflux, n/v and abdominal pain. : Denies dysuria or gross hematuria. No symptoms of bladder outlet obstruction. Endo: Denies hot flashes. Denies polyuria and polydipsia. Denies heat and cold intolerance. Musculoskeletal: See above. Derm: Denies rash. Denies jaundice and diffuse pruritis. Heme: Denies unusual bleeding and unexplained bruising. Psych: Normal mood. PHYSICAL EXAM: Vitals: Blood pressure 143/87, pulse (!) 56, temperature 36.7 ?C (98.1 ?F), temperature source Temporal Artery, weight 114.8 kg (253 lb). Well-appearing and in no acute distress. EYES: Sclerae are anicteric bilaterally. ENT: Oral mucosa is unremarkable. NECK: Supple. LYMPHATIC: There is no palpable cervical, supraclavicular or axillary adenopathy. RESPIRATORY: Good air entry. No wheeze, rhonchi or rales. CARDIOVASCULAR: Rhythm is regular. Normal intensity S1/S2. There is no gallop or murmur. ABDOMEN: The abdomen is nondistended. No splenomegaly. No tenderness. Extremities: Free of edema. SKIN: No jaundice or rash. No petechiae. 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 No focal motor weakness. DTRs symmetrical and normal. ASSESSMENT/PLAN: 1) Multiple myeloma. Had lytic bone lesions with no other end organ damage on original presentation. Tolerated and responded to Rd well. Resolution of low level serum MP following first cycle. s/p ASCT. -Maintenance Revlimid stopped after 2 years of therapy secondary to ongoing diarrhea. -Bone marrow biopsy and PET scan suggest relapse disease. -Discussed next line therapy and recommended daratumumab/bortezomib/dex. -I discussed the rationale, logistics, potential risks (including ), benefits and alternatives, as well as the personnel involved in the administration of daratumumab/bortezomib/dexamethasone. I answered his questions in detail and he verbalized understanding and agreed with the recommended therapy. Please see the electronic consent document for details of doses and schedule. -He has mood swings and hyperactivity with dex. -Pain well controlled. Plan: -Begin therapy in next week or two. -Dex IV when gets Darzalex. -Dex 4 mg PO in am days 2 and 3 of each Darzalex. -Okay to continue Percocet. -Monthly myeloma labs. Supportive care: No anemia. No hypercalcemia. Standard risk for VTE risk--Off ASA. No ID issues at present--restart acyclovir. Agustin Newton DO Referring Provider: AGUSTIN NEWTON [[id number]] Allergies As of Date: 03/26/2018 Noted Allergy Reaction ZOMETA (ZOLEDRONIC ACID) 11/21/2013 14 - Other: See Comments Comments: Severe chest pain, nausea, body aches, seizures. Tolerated pamidronate. PENICILLINS 09/27/2013 4 - Hives Date Reviewed: 03/26/2018 Reviewed by: Rosy Blackmon LPN - Fully Assessed Reason for Visit: Established Patient [[id number]] Primary Visit Diagnosis:Multiple myeloma in relapse (HCC) [C90.02] Follow-up and Disposition History Recorded Prescriptions as of 03/26/2018 Sig: ACETAMINOPHEN 500 MG TABLET Take 1,000 mg by mouth twice * IBUPROFEN PM ORAL Take 2 tablets by mouth at be* NEBIVOLOL 10 MG TABLET Take 10 mg by mouth once hafsa* ONDANSETRON HCL 8 MG TABLET Take 1 tablet by mouth every * X CEPHALEXIN 750 MG CAPSULE Take 1 capsule by mouth twice* X OXYCODONE-ACETAMINOPHEN 5 MG-* Take 1-2 tablets by mouth gillian* Problem List As Of Date 03/26/2018 Noted Resolved Splenomegaly [R16.1] INVALID FOR* Abnormal bone radiograph [R93.7] INVALID FOR* Lytic lesion of bone on x-ray [M89.9] INVALID FOR* Multiple myeloma (HCC) [C90.00] INVALID FOR* More... Chronic back pain greater than 3 months duratio*INVALID FOR* Chronic pain [G89.29] INVALID FOR* More... Autologous bone marrow transplantation status (*INVALID FOR* More... Hypertension [I10] INVALID FOR* More... Immunodeficiency (HCC) [D84.9] INVALID FOR* More... CINV (chemotherapy-induced nausea and vomiting)*INVALID FOR* More... Constipation [K59.00] INVALID FOR* More... Pancytopenia due to chemotherapy (HCC) [D61.810]INVALID FOR* More... Hypokalemia [E87.6] INVALID FOR* More... Transaminitis [R74.0] INVALID FOR* Chronic bilateral low back pain without sciatic*INVALID FOR* Visit Notes: >> Rosy Blackmon KENN Mon Mar 26, 2018 10:07 AM Status: Signed Est patient. Discuss recent PET Scan and BMBX results. Rosy Blackmon KENN Encounter Status:Closed by AGUSTIN NEWTON DO on 03/28/18 NM PET/CT WHOLE Observed: 03/20/2018 Status: F Source: [place] BODY INIT 11:05 AM CLINIC OTHER CAMPUS REPOSITORY * * *Final Report* * * DATE OF EXAM: Mar 20 2018 11:05AM MDP 0061 - NM PET/CT WHOLE BODY INIT / PROCEDURE REASON: multiple diagnoses * * * * Physician Interpretation * * * * EXAMINATION: WHOLE BODY BODY FDG PET/CT SCAN: (03/20/2018 11:39 AM) HISTORY: 57-year-old man with multiple myeloma. 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 INDICATION: Study performed for subsequent treatment strategy. TECHNIQUE: F18-FDG administered IV was followed about 60 minutes later by PET imaging from skull vertex to toes TOP OF HEAD TO BOTTOM OF FOOT. Free breathing low dose CT was performed without contrast for attenuation correction and anatomic localization. FDG radionuclide dose: 20.[address] Dose-Length Product (DLP): 776 mGy*cm. CT Dose Reduction Employed: Yes COMPARISON: None available CORRELATION: Bone survey 02/15/2018 RESULT: NECK: Physiologic uptake seen in the visualized brain, parapharyngeal soft tissues, base of tongue, vocal cords, and salivary glands. No hypermetabolic cervical lymphadenopathy or masses. No focal thyroid lesion. CHEST: Physiologic uptake in the heart and mediastinum. Lungs and tracheobronchial tree: No hypermetabolic consolidation, mass or nodules. Pleura: No hypermetabolic pleural or pericardial effusion, or pleural mass. Mediastinum and Lymph nodes: No hypermetabolic axillary, hilar, or mediastinal lymphadenopathy. No mediastinal mass. Chest wall and axilla: Unremarkable. ABDOMEN AND PELVIS: Physiologic uptake seen in the and GI tracts. Liver: No mass. Biliary: No bile duct dilation. Gallbladder is unremarkable. Spleen: No mass. No splenomegaly. Pancreas: No mass or duct dilation. Adrenals: No mass. Kidneys: No stones, hydronephrosis, or hypermetabolic lesions. . GI tract: No dilation or wall thickening. Lymph nodes: No abdominal or pelvic lymphadenopathy. Mesentery/Peritoneum: No ascites or mass. Vasculature: Vascular patency cannot be assessed due to lack of IV contrast. Pelvis: No mass, ascites or fluid collection. Soft tissues: No FDG avid neoplastic process. BONES AND EXTREMITIES: Lytic focus in the right mid femoral shaft with increased FDG uptake (Max SUV 2.8, slice position 1028). Faint lucencies in the mid shaft of the right humerus with mild FDG avid uptake (maximal SUV 2.2). Faint lucencies in the proximal left humerus with mild FDG avid uptake (Max SUV 2.0). A small radiolucent lesion in the left humeral head without significant FDG uptake, likely benign. Additional age-related changes. L2 kyphoplasty. ====== IMPRESSION: 1. NECK: No FDG avid neoplastic process. No mass, adenopathy, or fluid collection. 2. CHEST: No FDG avid neoplastic process. No mass, adenopathy, or fluid collection. 3. ABDOMEN/PELVIS: No FDG avid neoplastic process. No mass, adenopathy, or fluid collection. 4. EXTREMITIES/SKELETON: Foci of increased FDG uptake in the humeri and right femur, likely related to the patient's known multiple myeloma. 1.18.16 Prosthetics Lab Technician: ALEM Transcribe Date/Time: Mar 20 2018 11:39A Dictated by : CODY MERCEDES MD This examination was interpreted and the report reviewed and electronically signed by: RYAN ISBELL MD on Mar 20 2018 2:07PM EST [id number] NURSING PROG Observed: 03/14/2018 Status: COMPLETED Source: [place] 2:05 PM [facility] REPOSITORY HNO ID: [id number] Author: Yu Mejia RN Service: (none) Author Type: Registered Nurse Type: Nursing Progress Note Filed: 03/14/2018 2:51 PM Note Text: Patient did not experience a fall prior to discharge. Patient did not experience a burn prior to discharge. Yu Mejia RN NURSING PROG Observed: 03/14/2018 Status: COMPLETED Source: [place] 1:55 PM [facility] REPOSITORY HNO ID: [id number] Author: Yu Mejia RN Service: (none) Author Type: Registered Nurse Type: Nursing Progress Note Filed: 03/14/2018 2:51 PM Note Text: Right iliac drsg remains dry and intact. Yu Mejia RN PT ED Observed: 03/14/2018 Status: COMPLETED Source: [place] 1:50 PM [facility] REPOSITORY HNO ID: [id number] Author: Yu Mejia RN Service: (none) Author Type: Registered Nurse Type: Patient Education Filed: 03/14/2018 3:07 PM Note Text: POST OP LEARNING RESPONSE INSTRUCTION PROVIDED TO: Patient and Spouse METHOD OF INSTRUCTION: Individual instruction Written instruction - handouts Verbal instruction PATIENT / FAMILY RESPONSE: Verbalizes understanding of: INFECTION MANAGEMENT-Signs and symptoms of an infection and importance of contacting the physician MEDICAL REGIMEN-Importance of following prescribed medical regimen PAIN MANAGEMENT-Effective strategies to manage pain in addition to pain medication PHYSICAL RESTRICTIONS-Physical restrictions and recommendations after discharge from the hospital POST-PROCEDURE INSTRUCTIONS-Correct actions to take to reduce post procedure complications WORSENING CONDITION-Signs and symptoms of a worsening condition that warrant a call to the physician WOUND CARE-Correct procedure to perform wound care FOLLOW-UP PLAN: Patient instructed to call with any further issues Follow up phone call. Contact information given. follow up appts SUPPLEMENTAL MATERIAL: Procedure discharge instructions REFERRAL (RECOMMENDATION): None Electronically Signed By: Yu Mejia RN In Department: AMBULATORY SURGERY NURSING PROG Observed: 03/14/2018 Status: COMPLETED Source: [place] 1:28 PM [facility] REPOSITORY HNO ID: [id number] Author: Vinita MarcusRnSophie Rosario RN Service: Nursing Author Type: Registered Nurse Type: Nursing Progress Note Filed: 03/14/2018 1:29 PM Note Text: Patient did not experience a fall within the Intraoperative area. Patient did not experience a burn within the Intraoperative area. Vinita Rosario RN OPERATIVE NO Observed: 03/14/2018 Status: COMPLETED Source: [place] 1:12 PM [facility] REPOSITORY HNO ID: [id number] Author: Agustin Newton Service: Hematology/Oncology Author Type: Physician Type: Operative Report Filed: 03/14/2018 1:30 PM Note Text: SURGEON 1: Agustin Newton D.O. HEAD WELL PULLER 1: None. OPERATION: Bone marrow aspiration and biopsy. ANESTHESIA: Moderate sedation. PREOPERATIVE DIAGNOSIS: Multiple myeloma. POSTOPERATIVE DIAGNOSIS: Same. OPERATIVE INDICATIONS: Assess for relapse s/p autologous transplant. OPERATIVE FINDINGS: None. OPERATIVE PROCEDURE: The patient was brought to the operating room. After an audible time-out was performed, the patient was positioned in the left lateral decubitus position. A total of 4 mg of Versed and 100 mcg of fentanyl were administered IV to achieve conscious sedation. The skin over the right PSIS was prepped with chlorhexidine and isopropyl alcohol solution. The skin was infiltrated with 1% lidocaine and anesthesia was carried down to the periosteum of the bone. The marrow space was entered with a 4 in NetDragon biopsy drill set. Approximately 0.5 mL was aspirated. Then, 10 mL were withdrawn for flow cytometry and FISH studies if indicated. The needle was then advanced but no core was [id number]. Light pressure was applied to achieve hemostasis. A dressing was applied. ESTIMATED BLOOD LOSS: None. DRAINS: Not applicable. SPECIMENS: Bone marrow aspirate and core biopsy sample. COMPLICATIONS: None. START TIME: 12:21. STOP TIME: 12:26. Agustin Newton DO NURSING PROG Observed: 03/14/2018 Status: COMPLETED Source: [place] 1:10 PM [facility] REPOSITORY HNO ID: [id number] Author: Yu Mejia RN Service: (none) Author Type: Registered Nurse Type: Nursing Progress Note Filed: 03/14/2018 1:37 PM Note Text: [facility] PRE-OP NURSING HAND OFF NOTE SBAR Hand off given to Vinita Rosario RN. Hand off was communicated verbally and at the patient's bedside and all questions were answered. FALLS/APODACA Patient did not experience a fall within the Preoperative area. Patient did not experience a burn within the Preoperative area. Yu Mejia RN PT ED Observed: 03/14/2018 Status: COMPLETED Source: [place] 12:57 PM [facility] REPOSITORY HNO ID: [id number] Author: Yu Mejia RN Service: (none) Author Type: Registered Nurse Type: Patient Education Filed: 03/14/2018 12:58 PM Note Text: PRE OP LEARNING ASSESSMENT PROCEDURE/SURGERY: bone marrow biopsy READINESS TO LEARN COGNITIVE ABILITY: Alert and oriented MOTIVATION TO LEARN: Eager FAMILY SUPPORT: High - Very involved in pt care PATIENT LEARNS BEST BY: Multiple Methods FACTORS AFFECTING LEARNING: None PHYSICAL LIMITATIONS AFFECTING LEARNING: None Electronically Signed By: Yu Mejia RN In Department: AMBULATORY SURGERY FLOW CYTO HOLD Collected: 03/14/2018 Status: F Source: [facility] 12:55 PM [facility] REPOSITORY TYPE CODE TESTS RESULT OUT OF REFERENCE UNITS RANGE LAB JACY A bone marrow sample was Flow received for potential Cyto Hold flow cytometry Sample studies. Following morphologic review of the bone marrow, flow cytometric studies will be ordered by the hematopathologist if testing is indicated. Please see the corresponding bone marrow surgical pathology report. Result Comment: [id number] Performed By: #### MARIZOL LOUIEM #### [facility] [address], [place] [id number] FISH PLAS CELL Collected: 03/14/2018 Status: F Source: [facility] 12:55 PM [facility] REPOSITORY TYPE CODE TESTS RESULT OUT OF REFERENCE UNITS RANGE LAB PCMFSH FISH (NOTE) Plasma Cl Myel Result Comment: FISH results will follow in [facility] Surgical Pathology case #[id number] when complete. Performed By: #### JACY FSHPCM #### [facility] [address], [place] [id number] DNA EXTRACTION (BUFFY) Collected: 03/14/2018 Status: F Source: [place] 12:55 PM [facility] REPOSITORY TYPE CODE TESTS RESULT OUT OF REFERENCE UNITS RANGE LAB NUCBC DNA Extration BC (NOTE) Result Comment: This specimen was received and successfully processed for future DNA purification should molecular testing be needed. Specimens will be available for 3 years from the date of collection. To order testing on this specimen for [facility] patients, please place an [facility] order for DNA and RNA Extractions for Clinical Testing ([id number]). To order testing for patients outside of the [facility] system, please request DNA and RNA Extraction for Clinical Testing, order code [id number]. If additional paperwork is required for testing, please send completed forms via secure email to . Performed By: #### NUCBUF #### [facility] [address] [place], [place] [address] SURGICAL PATHOLOGY Observed: 03/14/2018 Status: C Source: [place] 12:55 PM [facility] REPOSITORY ADDITIONAL PROCEDURES PRESENT Specimen originated from [facility] Specimen #: [id number] Submitting Physician: AGUSTIN NEWTON M.D. ([id number]) FINAL DIAGNOSIS BONE MARROW, ASPIRATE SMEARS AND CLOT SECTION WITH PERIPHERAL BLOOD SMEAR: - CELLULAR MARROW WITH TRILINEAGE HEMATOPOIESIS AND MILD ERYTHROID PREDOMINANCE. - PERSISTENT/RECURRENT PLASMA CELL NEOPLASM, KAPPA MONOTYPIC (LESS THAN 5% OF CLOT SECTION CELLULARITY). - ADEQUATE STORAGE IRON. - SEE COMMENT. COMMENT: The patient has a history of plasma cell myeloma. Correlation with results of pending conventional cytogenetic analysis and FISH studies is recommended. PERIPHERAL BLOOD: CBC (03/14/18): WBC 4.86 k/uL; Hgb 14.6 g/dL; MCV 90.5 fL; RDW 13.6 %; Plts 169 k/uL Differential (%): Neuts 61.1 ; Lymphs 27.6 ; Monos 10.9 ; Eos 0 ; Baso 0.4 Morphology/Interpretation: Occasional ovalocytes. Otherwise, unremarkable peripheral smear. BONE MARROW ASPIRATE Normal % (0-2) 0 % Blasts (1-5) 0 % Promyelo (32-72) 34% Myelos/Metas/Bands/Segs (1-6) 0 % Eosinophils (0-1) 0 % Basophils (0-4) 3 % Monocytes (13-37) 43% Erythroid precursors (7-23) 19% Lymphocytes (0-2) 1 % Plasma cells Myeloid/Erythro (1.5-4): 0.9 Cells counted: 400 Iron stain result: Adequate; no ring sideroblasts. Specimen Quality: Cellular and spicular. Megakaryocytes: Present with normal morphology. Erythropoiesis: Progressive maturation. Granulopoiesis: Normal maturation. BONE MARROW BIOPSY: None submitted. CLOT SECTION: Marrow particles: Many. Cellularity: Normal. ME ratio: Decreased. Hematopoiesis: Trilineage maturation with mild erythroid predominance. Megakaryocytes: Adequate. Megakaryocyte morphology: Unremarkable. Lymphoid infiltrate: None seen. Other: Immunohistochemical stains for CD138 and kappa and lambda were performed to assess plasma cells. CD138 and kappa show less than 5% kappa-monotypic plasma cells. Lambda shows only very rare positive plasma cells. ANCILLARY TESTS: Flow cytometry: Not indicated. Cytogenetics: Pending. FISH: Myeloma panel. Molecular: N/A Laboratory Developed Test (LDT) Disclaimer: Positive and negative controls stain appropriately. Performance characteristics of immunohistochemical, immunofluorescent and chromogenic in-situ hybridization tests have been determined by [facility]'s [facility] [place] ([facility]) in a manner consistent with CLIA requirements. One or more of these tests have not been cleared or approved by the FDA. [facility] is regulated under CLIA as qualified to perform high-complexity testing. These tests are used for clinical purposes. They should not be regarded as investigational or for research. MON/peterson/03/16/18 Shahnaz Briggs M.D. (Electronic Signature) SPECIMEN SUBMITTED A: BONE MARROW, ASPIRATE RPIC B: BONE MARROW, CLOT RPIC ADDITIONAL PROCEDURE(S) CYTOGENETICS Date Ordered: 03/14/2018 Date Reported: 03/23/2018 Procedure Results and Interpretation Performing Pathologist: Dr. Amrit Hooper MD Interpretation: Lab Analysis No: [id number] Doctor/Pathologist: [facility] No: [id number] Clinical diagnosis: Multiple Myeloma Specimen Type: Bone Marrow Number of cells counted: 20 Number of cells analyzed: 20 Number of cells karyotyped: 2 Banding resolution: 425 Banding method: G-banding DIAGNOSIS: 46,XY[20] INTERPRETATION: normal, male karyotype COMMENT: Ten metaphase cells were analyzed from the culture stimulated with ODN and ten metaphase cells were analyzed from the 24 hour unstimulated culture. Twenty cells analyzed showed a 46,XY karyotype. There was no significant numerical chromosome abnormality and no structural change detected within the limits of resolution. None of the abnormalities identified by interphase FISH analysis for selected genetic abnormalities associated with plasma cell myeloma (reported separately) were identified by metaphase cytogenetics. This may be attributable to cell selection bias and differential growth in culture. A previous study from May 2014 also showed a 46,XY karyotype. Pathologist Interpretation: Amrit Hooper MD Performed by [facility] [place] Molecular Pathology Section Cytogenetics Lab, [place] [id number] [place] [address]. [place] [address] Toll free: Procedure Pathologist: Chasity Myles M.D./[facility] Electronic Signature FISH FOR PLASMA CELL MYELOMA Date Ordered: 03/16/2018 Date Reported: 03/20/2018 Procedure Results and Interpretation Sample Type: Bone marrow aspirate Number of plasma cell nuclei scored: 78 - 100 RESULT: ABNORMAL hybridization pattern (see interpretation). Anomaly Result 1p32 (CDKN2C): Normal pattern 1q21 (CKS1B): Gain of CKS1B locus (/78) +9 (CEP9): Trisomy of chromosome 9 (34/100) t(11;14)(q13;q32)(IGH/CCND1): Positive (64/86) 13q14 (RB1): Gain of RB1 locus (31/100) 14q32 (IGH): Positive for IGH translocation (53/100) +15 (CEP15): Trisomy of chromosome 15 (32/100) 17p13 (TP53): Gain of TP53 locus (31/100) INTERPRETATION: These findings demonstrate a plasma cell population with changes suggestive of being hyperdiploid with gains in chromosome 1, 9, and 15. Additionally there are gains for the RB1 and the TP53 loci and a IGH/CCND1 translocation. These findings are consistent with the presence of a plasma cell neoplasm. In plasma cell myeloma the presence of a gain of the CKS1B loci would be concerning for a high risk disease. However in the context of the balanced increase in 1p and 1q along with gains in multiple other loci suggest that the plasma cell neoplasm is hyperdiploid and these findings are associated with standard risk disease. However, correlation with metaphase cytogenetic analysis is required. REFERENCES: Blood 2011;[phone]; [place] Clin Proc 2013;88(4):360-74. METHODOLOGY: Bone marrow plasma cells were isolated by CD138 purification ([employer], [employer], [facility], Ramonita). Interphase fluorescence in situ hybridization was performed using probes to the CDKN2C locus on chromosome 1p32 (Andres Vysis, [place], [place]), CKS1B locus on chromosome 1q21 (Andres Vysis), chromosome 9 centromere (Andres Vysis), t(11;14) (IGH/CCND1 dual color dual fusion probe (Andres Vysis), 13q14 ([place], [place], [place]), IGH locus on chromosome 14q32 (LSI IGH Dual Color, [employer], Andres Vysis), chromosome 15 centromere (Andres Vysis), and the TP53 locus on chromosome 17p13 (Andres Vysis). 100 plasma cells were scored whenever possible. Pathologist Interpretation: Tee Dumont MD, PhD ANALYTE SPECIFIC REAGENT (ASR) DISCLAIMER This test was developed and its performance characteristics determined by [facility] [place] ([facility]). It has not been cleared or approved by the FDA. -[facility] is regulated under CLIA as qualified to perform high-complexity testing. This test is used for clinical purposes. It should not be regarded as investigational or for research. HAKAN/blair 03.20.2018 Procedure Pathologist: Shahnaz Briggs M.D./MC3 Electronic Signature CLINICAL DATA MULTIPLE MYELOMA GROSS DESCRIPTION A. Received are air-dried bone marrow aspirate smears. Submitted for light microscopy. B. Received in formalin are multiple red-brown, soft segment of hemorrhagic material aggregating to 1.8 x 1.8 x 1.7 cm. Totally submitted in one cassette. Gross examination performed at [facility], [address] [place] [address] 03/14/2018 10:57:36 PM Date of Report: 03/19/2018 Date of Procedure: 03/14/2018 Date of Receipt: 03/14/2018 Submitted by: AGUSTIN NEWTON M.D. ([id number]) Location: W010 Diagnostic interpretation performed at [facility], [address] [place] [address]. CHROMOSOME BM Collected: 03/14/2018 Status: F Source: [place] 12:55 PM [facility] REPOSITORY TYPE CODE TESTS RESULT OUT OF REFERENCE UNITS RANGE LAB CRBM Chromosome (NOTE) Analysis Result Comment: Performing Pathologist: Dr. Amrit Hooper MD Interpretation: Lab Analysis No: [id number] Doctor/Pathologist: [facility] No: [id number] Clinical diagnosis: Multiple Myeloma Specimen Type: Bone Marrow Number of cells counted: 20 Number of cells analyzed: 20 Number of cells karyotyped: 2 Banding resolution: 425 Banding method: G-banding DIAGNOSIS: 46,XY[20] INTERPRETATION: normal, male karyotype COMMENT: Ten metaphase cells were analyzed from the culture stimulated with ODN and ten metaphase cells were analyzed from the 24 hour unstimulated culture. Twenty cells analyzed showed a 46,XY karyotype. There was no significant numerical chromosome abnormality and no structural change detected within the limits of resolution. None of the abnormalities identified by interphase FISH analysis for selected genetic abnormalities associated with plasma cell myeloma (reported separately) were identified by metaphase cytogenetics. This may be attributable to cell selection bias and differential growth in culture. A previous study from May 2014 also showed a 46,XY karyotype. Pathologist Interpretation: Amrit Hooper MD Performed by [facility] [place] Molecular Pathology Section Cytogenetics Lab, [place] [id number] [place] [address]. [place] [id number] Toll free: Performed By: #### [facility] #### [facility] [place] [address] CBC AND DIFFERENTIAL Collected: 03/14/2018 Status: F Source: [place] 12:45 PM [facility] REPOSITORY TYPE CODE TESTS RESULT OUT OF REFERENCE UNITS RANGE LAB WBC 3.70-11.00 k/uL WBC 4.86 LAB RBC 4.20-6.00 m/uL RBC 4.73 LAB HGB 13.0-17.0 g/dL Hemoglobin 14.6 LAB HCT 39.0-51.0 % Hematocrit 42.8 LAB MCV 80.0-100.0 fL MCV 90.5 LAB MCH 26.0-34.0 pG MCH 30.9 LAB MCHC 30.5-36.0 g/dL MCHC 34.1 LAB RDWCV 11.5-15.0 % RDW-CV 13.6 LAB PLTCT 150-400 k/uL Platelet Count 169 LAB MPV 9.0-12.7 fL MPV 10.0 LAB ANEUT % Neut% 61.1 LAB AANEUT 1.45-7.50 k/uL Abs Neut 2.96 LAB ALYMP % Lymph% 27.6 LAB AALYMP 1.00-4.00 k/uL Abs Lymph 1.34 LAB AMONO % [place]% 10.9 LAB AAMONO <0.87 k/uL Abs [place] 0.53 LAB AEOS % Eosin% 0.0 LAB AAEOS <0.46 k/uL Abs Eosin <0.03 LAB ABASO % Baso% 0.4 LAB AABASO <0.11 k/uL Abs Baso <0.03 LAB AUNRBC 0 /100 WBC NRBCs 0.0 LAB ABNRBC <0.01 k/uL Absolute nRBC <0.01 LAB DTYP DTYPE Auto Diff Performed By: #### CBCDIF #### [facility] [address] [place], [place] [address] PROGRESS Observed: 02/28/2018 Status: COMPLETED Source: [place] 4:11 PM [facility] REPOSITORY HNO ID: [id number] Author: Agustin Newton Service: (none) Author Type: Physician Type: Progress Notes Filed: 02/28/2018 4:58 PM Note Text: Diagnosis: 1) Multiple myeloma t(11;14) IgG kappa. Bone marrow biopsy 2013: [place] restricted plasma cells. Could not quantify well--bloody aspirate, but nearly all plasma cells. Flow cytometry confirmed. FISH positive for IGH/CCND1 t(11;14). Initial bone survey IMPRESSION: 1. Suggest lucent or lytic lesion midshaft RIGHT femur 2. Question of a vague lucency in the distal femur on the LEFT side 3. Lucency projecting over L2 and a lateral view may be due to bowel gas. CT or MRI would be suggested since there was concern with this area on an outside study. 4. No evidence of paraspinal or extrapleural masses. HPI: The patient is a 57-year-old male who had cervical fusion surgery about 4 years prior to presentation here. Had been seeing a [facility] physician for about a year and half for low back pain. 2013, he was having more pain and presented to the ED at [facility]. CT scan A/P done 09/15/2013 revealed a normal-appearing liver as well as gallbladder next her hepatobiliary system. There was splenomegaly with the spleen measuring 16.5 cm in length. The only other abnormality was a diffuse degenerative changes of visualized lumbar spine with a 2.5 cm lucent lesion on the right side of the L2 vertebral body. There was minimal cortical disruption anterior laterally in the lesion was not present in a prior MRI study of 07/30/2012. CBC was significant only for mild increase in platelets. Had bone scan done as outpatient 09/19/2013 that showed mild increase in activity in mid right femur of questionable etiology. Back pain was the only symptom he had--Started working out more in April and was purposely trying to lose weight. Initial therapy with Rd. Underwent autologous SCT--Patient's stem cells were mobilized with filgrastim and plerixafor. Patient collected CD34/kg 5.60 x 106 over 1 collection day. Nausea, vomiting, diarrhea and headache after plerixafor. 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 Day: +11. Counts recovered. Discharge today. Protocol(s): Auto 3422 1C Melphalan 200 Preparative regimen: Melphalan Mobilization regimen: G+P Stem cell source: apheresis CD34 cell dose (x10e6/kg): 5.6 Tolerated well with mild mucositis. No NF. N/V with melphalan. Previous therapy: 1) Rd. 2) Autologous BMT. 3) Revlimid maintenance through 08/2016. Stopped due to diarrhea. Current therapy: 1) Pamidronate every 3 months (Zometa caused severe flu-like symptoms). Presents for ongoing management. Interim history: Recent lab work showed atypical IgG kappa in the serum. The amount was not quantifiable. Additionally he's been having an increase in bone pain. The pain is characterized as an aching pain throughout the bones of his body. 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 His appetite is normal. He has not had fevers or night sweats. He's had no unusual bleeding or unexplained bruising. PMH, medications and allergies as below personally reviewed by me today. Any changes documented in appropriate section. ROS: Constitutional: See above. Neuro: Denies [place], vertigo, dizziness and imbalance. HEENT: No recent change in voice, vision or hearing. Resp: Denies cough, wheeze and hemoptysis. Denies shortness of breath at rest. CVS: Denies exertional chest pain, PND, orthopnea and LE edema. GI: Denies dysgeusia. Denies symptoms of stomatitis. Denies dysphagia and odynophagia. Denies reflux, n/v and abdominal pain. : Denies dysuria or gross hematuria. No symptoms of bladder outlet obstruction. Endo: Denies hot flashes. Denies polyuria and polydipsia. Denies heat and cold intolerance. Musculoskeletal: See above. Derm: Denies rash. Denies jaundice and diffuse pruritis. Heme: Denies unusual bleeding and unexplained bruising. Psych: Normal mood. PHYSICAL EXAM: Vitals: Blood pressure 175/106, pulse 61, temperature 36.9 ?C (98.5 ?F), temperature source Oral, weight 116.6 kg (257 lb). Well-appearing and in no acute distress. EYES: Sclerae are anicteric bilaterally. ENT: Oral mucosa is unremarkable. NECK: Supple. LYMPHATIC: There is no palpable cervical, supraclavicular or axillary adenopathy. RESPIRATORY: Good air entry. No wheeze, rhonchi or rales. CARDIOVASCULAR: Rhythm is regular. Normal intensity S1/S2. There is no gallop or murmur. ABDOMEN: The abdomen is nondistended. No splenomegaly. No tenderness. Extremities: Free of edema. SKIN: No jaundice or rash. No petechiae. 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 No focal motor weakness. DTRs symmetrical and normal. ASSESSMENT/PLAN: 1) Multiple myeloma. Had lytic bone lesions with no other end organ damage on original presentation. Tolerated and responded to Rd well. Resolution of low level serum MP following first cycle. s/p ASCT. -Maintenance Revlimid stopped after 2 years of therapy secondary to ongoing diarrhea. -I reviewed lab work with him today. His was present for our discussion. Worrisome that he is experiencing relapse. He certainly has increasing bone pain. Bone survey done recently showed stable findings. -We also discussed his pain management. I excite him uncomfortable assuming management of the pain because it is most likely related to progressive underlying myeloma. Plan: -Requires bone marrow biopsy for further investigation. -Also because the degree of pain is more so than with the bone survey suggest, PET/CT scan indicated for more sensitive workup. -Rx for Percocet. Supportive care: No anemia. No hypercalcemia. Standard risk for VTE risk--Off ASA. No ID issues at present--no current need for shingles prophylaxis. Total ogbi-mh-wttu time was >25 minutes with greater than 15 minutes spent discussing the issues outlined above and/or coordinating care. Agustin Newton DO CNOVSP Observed: 02/28/2018 Status: COMPLETED Source: [place] 4:00 PM [facility] REPOSITORY Visit (SP) Office ([place]) KAITLYNN CHOUDHURY ([id number]) 1960 M TRN Date Time Provider Department 02/28/18 4:00 PM AGUSTIN NEWTON During your visit today, we recorded the following information about you: Temperature Pulse Blood pressure Weight 98.5 degrees 61/minute 175/106 116.6 kg Agustin Newton DO 02/28/2018 4:58 PM Signed Diagnosis: 1) Multiple myeloma t(11;14) IgG kappa. Bone marrow biopsy 2013: [place] restricted plasma cells. Could not quantify well--bloody aspirate, but nearly all plasma cells. Flow cytometry confirmed. FISH positive for IGH/CCND1 t(11;14). Initial bone survey IMPRESSION: 1. Suggest lucent or lytic lesion midshaft RIGHT femur 2. Question of a vague lucency in the distal femur on the LEFT side 3. Lucency projecting over L2 and a lateral view may be due to bowel gas. CT or MRI would be suggested since there was concern with this area on an outside study. 4. No evidence of paraspinal or extrapleural masses. HPI: The patient is a 57-year-old male who had cervical fusion surgery about 4 years prior to presentation here. Had been seeing a [facility] physician for about a year and half for low back pain. 2013, he was having more pain and presented to the ED at [facility]. CT scan A/P done 09/15/2013 revealed a normal-appearing liver as well as gallbladder next her hepatobiliary system. There was splenomegaly with the spleen measuring 16.5 cm in length. The only other abnormality was a diffuse degenerative changes of visualized lumbar spine with a 2.5 cm lucent lesion on the right side of the L2 vertebral body. There was minimal cortical disruption anterior laterally in the lesion was not present in a prior MRI study of 07/30/2012. CBC was significant only for mild increase in platelets. Had bone scan done as outpatient 09/19/2013 that showed mild increase in activity in mid right femur of questionable etiology. Back pain was the only symptom he had--Started working out more in April and was purposely trying to lose weight. Initial therapy with Rd. Underwent autologous SCT--Patient's stem cells were mobilized with filgrastim and plerixafor. Patient collected CD34/kg 5.60 x 106 over 1 collection day. Nausea, vomiting, diarrhea and headache after plerixafor. 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 Day: +11. Counts recovered. Discharge today. Protocol(s): Auto 3422 1C Melphalan 200 Preparative regimen: Melphalan Mobilization regimen: G+P Stem cell source: apheresis CD34 cell dose (x10e6/kg): 5.6 Tolerated well with mild mucositis. No NF. N/V with melphalan. Previous therapy: 1) Rd. 2) Autologous BMT. 3) Revlimid maintenance through 08/2016. Stopped due to diarrhea. Current therapy: 1) Pamidronate every 3 months (Zometa caused severe flu-like symptoms). Presents for ongoing management. Interim history: Recent lab work showed atypical IgG kappa in the serum. The amount was not quantifiable. Additionally he's been having an increase in bone pain. The pain is characterized as an aching pain throughout the bones of his body. 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 His appetite is normal. He has not had fevers or night sweats. He's had no unusual bleeding or unexplained bruising. PMH, medications and allergies as below personally reviewed by me today. Any changes documented in appropriate section. ROS: Constitutional: See above. Neuro: Denies [place], vertigo, dizziness and imbalance. HEENT: No recent change in voice, vision or hearing. Resp: Denies cough, wheeze and hemoptysis. Denies shortness of breath at rest. CVS: Denies exertional chest pain, PND, orthopnea and LE edema. GI: Denies dysgeusia. Denies symptoms of stomatitis. Denies dysphagia and odynophagia. Denies reflux, n/v and abdominal pain. : Denies dysuria or gross hematuria. No symptoms of bladder outlet obstruction. Endo: Denies hot flashes. Denies polyuria and polydipsia. Denies heat and cold intolerance. Musculoskeletal: See above. Derm: Denies rash. Denies jaundice and diffuse pruritis. Heme: Denies unusual bleeding and unexplained bruising. Psych: Normal mood. PHYSICAL EXAM: Vitals: Blood pressure 175/106, pulse 61, temperature 36.9 ?C (98.5 ?F), temperature source Oral, weight 116.6 kg (257 lb). Well-appearing and in no acute distress. EYES: Sclerae are anicteric bilaterally. ENT: Oral mucosa is unremarkable. NECK: Supple. LYMPHATIC: There is no palpable cervical, supraclavicular or axillary adenopathy. RESPIRATORY: Good air entry. No wheeze, rhonchi or rales. CARDIOVASCULAR: Rhythm is regular. Normal intensity S1/S2. There is no gallop or murmur. ABDOMEN: The abdomen is nondistended. No splenomegaly. No tenderness. Extremities: Free of edema. SKIN: No jaundice or rash. No petechiae. 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 No focal motor weakness. DTRs symmetrical and normal. ASSESSMENT/PLAN: 1) Multiple myeloma. Had lytic bone lesions with no other end organ damage on original presentation. Tolerated and responded to Rd well. Resolution of low level serum MP following first cycle. s/p ASCT. -Maintenance Revlimid stopped after 2 years of therapy secondary to ongoing diarrhea. -I reviewed lab work with him today. His was present for our discussion. Worrisome that he is experiencing relapse. He certainly has increasing bone pain. Bone survey done recently showed stable findings. -We also discussed his pain management. I excite him uncomfortable assuming management of the pain because it is most likely related to progressive underlying myeloma. Plan: -Requires bone marrow biopsy for further investigation. -Also because the degree of pain is more so than with the bone survey suggest, PET/CT scan indicated for more sensitive workup. -Rx for Percocet. Supportive care: No anemia. No hypercalcemia. Standard risk for VTE risk--Off ASA. No ID issues at present--no current need for shingles prophylaxis. Total hlit-re-jucl time was >25 minutes with greater than 15 minutes spent discussing the issues outlined above and/or coordinating care. Agustin Newton DO Referring Provider: AGUSTIN NEWTON [[id number]] Allergies As of Date: 02/28/2018 Noted Allergy Reaction ZOMETA (ZOLEDRONIC ACID) 11/21/2013 14 - Other: See Comments Comments: Severe chest pain, nausea, body aches, seizures. Tolerated pamidronate. PENICILLINS 09/27/2013 4 - Hives Date Reviewed: 02/28/2018 Reviewed by: Nia German - Fully Assessed Reason for Visit: Established Patient [175] Primary Visit Diagnosis:Multiple myeloma not having achieved remission (HCC) [C90.00] Other Visit Diagnosis:Bone pain [M89.8X9] Order(s):NM PET/CT WHOLE BODY [[id number]] Order #: [id number] FUTURE oxyCODONE-acetaminophen (PERCOCET) 5-325 mg tabletTake 1-2 tablets by mouth every 6 hours as needed for up to 14 days.Disp: 90 tabletRfl: 0 Follow-up and Disposition History Recorded Prescriptions as of 02/28/2018 Sig: IBUPROFEN PM ORAL Take 2 tablets by mouth at be* ONDANSETRON HCL 8 MG TABLET Take 1 tablet by mouth every * ACETAMINOPHEN 500 MG TABLET Take 1,000 mg by mouth twice * NEBIVOLOL 10 MG TABLET Take 10 mg by mouth once hafsa* OXYCODONE-ACETAMINOPHEN 5 MG-* Take 1-2 tablets by mouth gillian* Medication notes this encounter HYDROCODONE 5 MG-ACETAMINOPHEN 325 MG TABLET >> Agustin Newton DO 02/28/2018 4:22 PM No longer effective Problem List As Of Date 02/28/2018 Noted Resolved Splenomegaly [R16.1] INVALID FOR* Abnormal bone radiograph [R93.7] INVALID FOR* Lytic lesion of bone on x-ray [M89.9] INVALID FOR* Multiple myeloma (HCC) [C90.00] INVALID FOR* Priority: B More... Chronic back pain greater than 3 months duratio*INVALID FOR* Chronic pain [G89.29] INVALID FOR* Priority: D More... Autologous bone marrow transplantation status (*INVALID FOR* Priority: A More... Hypertension [I10] INVALID FOR* Priority: D More... Immunodeficiency (HCC) [D84.9] INVALID FOR* Priority: A More... CINV (chemotherapy-induced nausea and vomiting)*INVALID FOR* Priority: C More... Constipation [K59.00] INVALID FOR* More... Pancytopenia due to chemotherapy (HCC) [D61.810]INVALID FOR* More... Hypokalemia [E87.6] INVALID FOR* More... Transaminitis [R74.0] INVALID FOR* Chronic bilateral low back pain without sciatic*INVALID FOR* Encounter Status:Closed by AGUSTIN NEWTON DO on 02/28/18 HOSP Observed: 02/28/2018 Status: COMPLETED Source: [place] 12:00 AM [facility] REPOSITORY Patient:Kaitlynn Choudhury MRN: <[id number]> Height:5' 10.866(1.8 m) Weight:257 lb (116.574 kg) Outpatient Medications as of 03/14/18: oxyCODONE-acetaminophen (PERCOCET) 5-325 mg tablet ibuprofen/diphenhydramine cit (IBUPROFEN PM ORAL) ondansetron (ZOFRAN) 8 mg tablet acetaminophen (TYLENOL EXTRA STRENGTH) 500 mg tablet nebivolol (BYSTOLIC) 10 mg tablet Admission/Clinic Administered Medications as of 03/14/18: lidocaine 10 mg/mL (1 %) 1-2 mg injection (XYLOCAINE) lactated ringers infusion Problem List: Splenomegaly [R16.1] Abnormal bone radiograph [R93.7] Lytic lesion of bone on x-ray [M89.9] Multiple myeloma (HCC) [C90.00] Chronic back pain greater than 3 months duration [M54.9, G89.29] Chronic pain [G89.29] Autologous bone marrow transplantation status (HCC) [Z94.81] Hypertension [I10] Immunodeficiency (HCC) [D84.9] CINV (chemotherapy-induced nausea and vomiting) [R11.2, T45.1X5A] Constipation [K59.00] Pancytopenia due to chemotherapy (HCC) [D61.810] Hypokalemia [E87.6] Transaminitis [R74.0] Chronic bilateral low back pain without sciatica [M54.5, G89.29] Allergies: Zometa [Zoledronic Acid] Penicillins Date Verified: 03/14/18 Lab Values Lab Value Units Date High Low POTA* 3.8 mmol/L 02/15/2018 5.1 3.7 TAWANDA* 38.0 % 02/15/2018 51.0 39.0 Progress Notes ([facility]): Agustin Newton DO 03/12/2018 4:22 PM Signed Message from [employer]: Kaitlynn Choudhury would like a refill of the following medications: oxyCODONE-acetaminophen (PERCOCET) 5-325 mg tablet [Agustin Newton DO] Preferred pharmacy: [facility] [address] [place] [id number] [phone] [place] [phone] Progress Notes ([facility]): Shahnaz Medrano Psr 02/28/2018 4:45 PM Signed BMBX IN [facility] W/ DR. NEWTON ON 03/14/18 @ 1:00 PM CBC/PBSX2/SPECIMEN TO [facility] MAIN* CBC AND DIFFERENTIAL Collected: 02/15/2018 Status: F Source: [place] 4:18 PM [facility] REPOSITORY TYPE CODE TESTS RESULT OUT OF REFERENCE UNITS RANGE LAB WBC 3.70-11.00 k/uL Low WBC 3.41 LAB RBC 4.20-6.00 m/uL Low RBC 4.14 LAB HGB 13.0-17.0 g/dL Hemoglobin 13.0 LAB HCT 39.0-51.0 % Low Hematocrit 38.0 LAB MCV 80.0-100.0 fL MCV 91.8 LAB MCH 26.0-34.0 pG MCH 31.4 LAB MCHC 30.5-36.0 g/dL MCHC 34.2 LAB RDWCV 11.5-15.0 % RDW-CV 13.9 LAB PLTCT 150-400 k/uL Platelet Count 162 LAB MPV 9.0-12.7 fL MPV 9.4 LAB ANEUT % Neut% 57.1 LAB AANEUT 1.45-7.50 k/uL Abs Neut 1.93 LAB ALYMP % Lymph% 31.7 LAB AALYMP 1.00-4.00 k/uL Abs Lymph 1.08 LAB AMONO % [place]% 10.6 LAB AAMONO <0.87 k/uL Abs [place] 0.36 LAB AEOS % Eosin% 0.0 LAB AAEOS <0.46 k/uL Abs Eosin <0.03 LAB ABASO % Baso% 0.6 LAB AABASO <0.11 k/uL Abs Baso <0.03 LAB AUNRBC 0 /100 WBC NRBCs 0.0 LAB ABNRBC <0.01 k/uL Absolute nRBC <0.01 LAB DTYP DTYPE Auto Diff Performed By: #### CBCDIF, SEPG, SERMPA #### [facility] [address] [place], [place] [address] PROTEIN ELECTROPHOR. Collected: 02/15/2018 Status: F Source: [place] 4:18 PM [facility] REPOSITORY TYPE CODE TESTS RESULT OUT OF REFERENCE UNITS RANGE LAB TPSPE 6.0-8.4 g/dL Total Protein, SPE 6.4 LAB ALBE 3.37-4.23 gm/dL Albumin 4.12 LAB A1GL 0.18-0.31 gm/dL Alpha 1 Globulin 0.21 LAB A2GL 0.52-0.97 gm/dL Alpha 2 Globulin 0.53 LAB BEGL 0.84-1.36 gm/dL Beta Globulin 0.96 LAB GAGL 0.70-1.44 gm/dL Gamma Globulin Low 0.57 LAB SPEINT Interpretation SEE COMMENT Result Comment: No definitive M protein is identified on protein electrophoresis. LAB LOC M Protein N/A Location LAB GPERDL 0.00 gm/dL M Wilder 0.00 Concentratn LAB SPESTF SPE Staff Review Reviewed by Raghu Lopez MD. ([id number]) Performed By: #### MINGO ALCALA SERSNOWA #### [facility] [address] [place], [place] [address] MONCLNL PROTEIN, SER Collected: 02/15/2018 Status: F Source: [place] 4:18 PM [facility] REPOSITORY TYPE CODE TESTS RESULT OUT OF REFERENCE UNITS RANGE LAB IGG 717-1411 mg/dL Low IgG 626 LAB IGA 78-391 mg/dL Low IgA 39 LAB IGM 53-334 mg/dL Low IgM 36 LAB FKAPS 3.30-19.40 mg/L [place], 5.6 Free, Serum Result Comment: Rarely, increased serum free light chains values may not be detected due to antigen excess phenomenon. Results should always be correlated with other laboratory results and clinical findings. LAB FLAMS 5.7-26.3 mg/L Low Lambda, Free, Serum 1.4 Result Comment: Rarely, increased serum free light chains values may not be detected due to antigen excess phenomenon. Results should always be correlated with other laboratory results and clinical findings. LAB KLRAT 0.26-1.65 High K/L Ratio, Serum 4.00 LAB MPAR No M protein is identified. MPA Result A Abnormal poorly defined Alert region of restricted mobility is present that may represent an M protein. LAB INTP MPA SEE Interpretation COMMENT Result Comment: Poorly defined region of restricted mobility in IgG and kappa lanes. Pattern is less well defined or fainter than typically seen in monoclonal gammopathy. This could represent either an atypical presentation of polyclonal immunoglobulins or the presence of a low level IgG kappa monoclonal gammopathy. If clinically indicated, urine monoclonal protein analysis and serum free light chain measurements are recommended to evaluate further for monoclonal gammopathy. Clinical correlation is necessary. LAB MPASTF Reviewed by Raghu Staff Review MD John. ([id number]) Performed By: #### CBCDIF, SEPG, SERMPA #### [facility] [address], [place] [id number] COMP METABOLIC PANEL Collected: 02/15/2018 Status: F Source: [place] 4:17 PM [facility] REPOSITORY TYPE CODE TESTS RESULT OUT OF REFERENCE UNITS RANGE LAB TP 6.3-8.0 g/dL Protein, Total 6.4 LAB ALB 3.9-4.9 g/dL Albumin 4.4 LAB CA 8.5-10.2 mg/dL Calcium, Total 9.7 LAB TBIL 0.2-1.3 mg/dL Bilirubin, Total 0.6 LAB ALKP 38-113 U/L Alkaline Phosphatase 72 LAB AST 14-40 U/L AST 27 LAB GLU 74-99 mg/dL Glucose 97 LAB BUN 7-21 mg/dL BUN High 22 LAB CRET 0.73-1.22 mg/dL Creatinine 0.98 LAB NA 136-144 mmol/L Sodium 138 LAB K 3.7-5.1 mmol/L Potassium 3.8 LAB CL 97-105 mmol/L Chloride 103 LAB CO2 22-30 mmol/L CO2 26 LAB AGAP 9-18 mmol/L Anion Gap 9 LAB ALT 10-54 U/L ALT 39 LAB GFRAA eGFR- >60 Amer. LAB GFRNAA . eGFR-All Other Races >60 Result Comment: eGFR (Estimated GFR) Units of measure: mL/min/1.73 meters squared eGFR is derived from the reexpressed MDRD Study equation using the following parameters: serum creatinine, age, gender and race. The creatinine assay has been calibrated to be traceable to IDMS. An eGFR <60 mL/min/1.73m2 for >3 months is consistent with chronic kidney disease. Refer to KDOQI guidelines for clinical interpretation. In patients with unstable renal function, e.g. those with acute kidney injury, the eGFR may not accurately reflect actual GFR. XR BONE SURVEY Observed: 02/15/2018 Status: F Source: [place] ROUTINE 4:03 PM [facility] REPOSITORY * * *Final Report* * * DATE OF EXAM: Feb 15 2018 4:03PM [id number] [id number] - XR BONE SURVEY ROUTINE / PROCEDURE REASON: Multiple myeloma in remission (HCC) * * * * Physician Interpretation * * * * Adult bone survey History: Multiple myeloma in remission Findings: lateral skull, AP and lateral thoracic and lumbar spine, lateral cervical spine, frontal view of each humeri, femurs, tibia and fibula, knees, forearms, and hand/wrist and oblique and AP bilateral ribs, KUB and AP pelvis. Previous study: 08/04/2017 Stable findings of kyphoplasty or vertebroplasty involving the L2 vertebral body. There is a stable heterogeneous lucency in the RIGHT femoral diaphysis with lateral endosteal scalloping. Dimensions about 4.1 x 1.6 cm. IMPRESSION: Stable findings including focal lytic lesion RIGHT femoral shaft. Stable L2 kyphoplasty. Prosthetics Lab Technician: ALEM Transcribe Date/Time: Feb 16 2018 1:45P Dictated by : VALENTINE RIVERA MD This examination was interpreted and the report reviewed and electronically signed by: VALENTINE RIVERA MD on Feb 16 2018 1:49PM EST [id number] PROGRESS Observed: 02/15/2018 Status: COMPLETED Source: [place] 3:35 PM [facility] REPOSITORY HNO ID: [id number] Author: Yudith Guevara Service: (none) Author Type: (none) Type: Progress Notes Filed: 02/15/2018 4:03 PM Note Text: Radiology Service Progress Note PATIENT NAME: Kaitlynn Choudhury DATE OF SERVICE: February 15, 2018 TIME: 3:37 PM PATIENT IDENTITY VERIFICATION COMPLETED USING TWO (2) METHODS: Patient confirmed name verbally and Date of . PATIENT GENDER DATA: Male PATIENT RELEVANT IMPLANT DATA REVIEWED: Not Applicable RADIOLOGY DEPARTMENT: General X-ray: Exam(s) Completed: Bone Survey PERIPHERAL IV DATA: Not applicable SIGNED BY: Yudith Guevara February 15, 2018 3:37 PM PROGRESS Observed: 01/08/2018 Status: COMPLETED Source: [place] 9:11 AM [facility] REPOSITORY HNO ID: [id number] Author: Patricia Pulliam Service: (none) Author Type: Nurse Practitioner Type: Progress Notes Filed: 01/10/2018 1:18 PM Note Text: Chief Complaint Patient presents with: Established Patient HPI: Kaitlynn Choudhury is a 57 year old male who presents here today for follow up MM/evaluation for next cycle of aredia. Per Dr. Newton's previous note: Diagnosis: 1) Multiple myeloma t(11;14) IgG kappa. ? Bone marrow biopsy 2013: [place] restricted plasma cells. Could not quantify well--bloody aspirate, but nearly all plasma cells. Flow cytometry confirmed. FISH positive for IGH/CCND1 t(11;14). ? Initial bone survey IMPRESSION: 1. Suggest lucent or lytic lesion midshaft RIGHT femur 2. Question of a vague lucency in the distal femur on the LEFT side 3. Lucency projecting over L2 and a lateral view may be due to bowel gas. CT or MRI would be suggested since there was concern with this area on an outside study. 4. No evidence of paraspinal or extrapleural masses. ? HPI: The patient is a 56-year-old male who had cervical fusion surgery about 4 years prior to presentation here. Had been seeing a [facility] physician for about a year and half for low back pain. ? weekend 2013, he was having more pain and presented to the ED at [facility]. CT scan A/P done 09/15/2013 revealed a normal-appearing liver as well as gallbladder next her hepatobiliary system. There was splenomegaly with the spleen measuring 16.5 cm in length. The only other abnormality was a diffuse degenerative changes of visualized lumbar spine with a 2.5 cm lucent lesion on the right side of the L2 vertebral body. There was minimal cortical disruption anterior laterally in the lesion was not present in a prior MRI study of 07/30/2012. ? CBC was significant only for mild increase in platelets. ? Had bone scan done as outpatient 09/19/2013 that showed mild increase in activity in mid right femur of questionable etiology. ? Back pain was the only symptom he had--Started working out more in April and was purposely trying to lose weight. ? Initial therapy with Rd. ? Underwent autologous SCT--Patient's stem cells were mobilized with filgrastim and plerixafor. Patient collected CD34/kg 5.60 x 106 over 1 collection day. Nausea, vomiting, diarrhea and headache after plerixafor. ? 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 Day: +11. Counts recovered. Discharge today. Protocol(s): Auto 3422 1C Melphalan 200 Preparative regimen: Melphalan Mobilization regimen: G+P Stem cell source: apheresis CD34 cell dose (x10e6/kg): 5.6 ? Tolerated well with mild mucositis. No NF. N/V with melphalan. ? Previous therapy: 1) Rd. 2) Autologous BMT. 3) Revlimid maintenance through 08/2016. Stopped due to diarrhea. ? Current therapy: 1) Pamidronate (Zometa caused severe flu-like symptoms). ? Pt. is followed by [facility] for back/neck pain. ?? Appetite:too much. ?Energy level:none Denies fevers I have a cold now. Mouth:denies sores Resp:+ dry cough x past three days my grandkids came over and gave this to me denies sob, occ. corea Cardiac:denies chest pain/palpitations GI:denies abd pain, n/v, moving bowels regularly :denies dysuria/hematuria Extrem:low back pain, lower neck-Followed by [facility]-Dr. Murrieta. Neuro:+neuropathy to hands/feet, L hand 2 fingers Skin:denies rashes/lesions Heme:denies bleeding The ROS is otherwise negative. Past medical history, appointments, medications, allergies reviewed. No changes. EXAM: BP 139/85 Pulse 67 Temp 37.3 ?C (99.1 ?F) (Oral) Wt 116.8 kg (257 lb 8 oz) BMI 36.05 kg/m? APPEARANCE Well appearing, alert, in no acute distress, well-hydrated, well nourished. HEART RRR with normal S1 and S2, no murmurs LUNG clear to auscultation LYMPH NODES No cervical lymphadenopathy, No supraclavicular lymphadenopathy and No axillary lymphadenopathy. ABDOMEN bowel sounds normoactive, no bruits, soft, non-tender, non-distended, without organomegaly or palpable masses EXTREMITIES No edema NEURO Awake, alert and oriented x 3, Normal gait and No involuntary motions. SKIN Skin color, texture, turgor normal, no suspicious rashes or lesions LABS: Component Latest Ref Rng AND Units 10/10/2017 01/02/2018 WBC, [place] 3.70 - 11.00 k/uL 4.53 3.34 (L) RBC, [place] 4.20 - 6.00 m/uL 4.36 4.17 (L) Hemoglobin, [place] 13.0 - 17.0 g/dL 13.7 13.0 Hematocrit, [place] 39.0 - 51.0 % 39.2 38.3 (L) MCV, [place] 80.0 - 100.0 fL 89.9 91.8 MCH, [place] 26.0 - 34.0 pg 31.4 31.2 MCHC, [place] 30.5 - 36.0 g/dL 34.9 33.9 RDW, [place] 11.5 - 15.0 % 14.2 13.8 Platelet Cnt, [place] 150 - 400 k/uL 172 156 MPV, [place] 9.0 - 12.7 fL 9.1 8.8 (L) Absol Gran Count 1.45 - 7.50 k/uL 2.67 2.10 Component Latest Ref Rng AND Units 10/10/2017 01/02/2018 Protein, Total 6.3 - 8.0 g/dL 6.6 6.7 Albumin 3.9 - 4.9 g/dL 4.4 4.3 Calcium 8.5 - 10.2 mg/dL 9.4 9.5 Bilirubin, Total 0.2 - 1.3 mg/dL 0.6 0.5 Alkaline Phosphatase 36 - 108 U/L 77 81 AST 14 - 40 U/L 35 27 Glucose 74 - 99 mg/dL 91 88 BUN 9 - 24 mg/dL 20 15 Creatinine 0.73 - 1.22 mg/dL 1.20 0.96 Sodium 136 - 144 mmol/L 139 142 Potassium 3.7 - 5.1 mmol/L 3.5 (L) 3.8 Chloride 97 - 105 mmol/L 95 (L) 101 CO2 22 - 30 mmol/L 23 29 Anion Gap 9 - 18 mmol/L 21 (H) 12 ALT 10 - 54 U/L 56 (H) 48 eGFR- >60 >60 eGFR-All Other Races . >60 >60 Component Latest Ref Rng AND Units 10/10/2017 01/02/2018 [place] Free, Serum 3.30 - 19.40 mg/L 9.0 8.1 Lambda Free, Serum 5.7 - 26.3 mg/L 4.4 (L) 4.8 (L) K/L Ratio, Serum 0.26 - 1.65 2.05 (H) 1.69 (H) Component Latest Ref Rng AND Units 10/10/2017 01/02/2018 MPA IgG, Serum 717 - 1,411 mg/dL 709 (L) 587 (L) MPA IgA, Serum 78 - 391 mg/dL 46 (L) 36 (L) MPA IgM, Serum 53 - 334 mg/dL 41 (L) 33 (L) MPA [place], Serum 534 - 1,267 mg/dL 564 MPA Lambda, Serum 253 - 653 mg/dL 243 (L) MPA [place]/Lambda Ratio 1 - 3 2.32 MPA Result No M protein is identified. No M protein is identified. A poorly defined region of restricted mobility is present that may represent an M (A) . . . Staff Review (MPA) Reviewed by Tee Corrales MD ([id number]) Reviewed by Qasim Hernadez M.D. ([id number]) Interpretation (MPA) SEE COMMENT ASSESSMENT/PLAN: 1. Multiple myeloma in remission (HCC) - ICD9: 203.01, ICD10: C90.[address] Newton's previous note: Had lytic bone lesions with no other end organ damage. Tolerated and responding to Revlimid well. Resolution of low level serum MP following first cycle. s/p ASCT. -Maintenance Revlimid stopped after 2 years of therapy secondary to ongoing diarrhea. -I reviewed his lab work with him today in detail--remains in remission. -Did not get bone survey in January. Plan: -Pamidronate every 3 months. -Recheck myeloma labs/bone survey in 3 months. ? Supportive care: No anemia. No hypercalcemia. Standard risk for VTE risk--Off ASA. No ID issues at present--no longer has need for shingles prophylaxis. ? He will continue following under the care of pain management. I will not be prescribing narcotic medications. ? ? - Tolerating treatment well. - Bone survey as indicated by symptoms/MM labs. - Follow up with [facility] as scheduled. - Pamidronate every 3 months. - Proceed as scheduled on 01/16/18 for aredia. - Follow up with Dr. Newton in 3 months with CBC/CMP/MM labs/prior to next treatment. - Pt. aware to call office with any questions/concerns. ? The patient indicates understanding of these issues and agrees with the plan. Patricia Pulliam APRN.[employer] SECURITY CONSULTANT CNOVSP Observed: 01/08/2018 Status: COMPLETED Source: [place] 9:00 AM [facility] REPOSITORY Visit (SP) Office ([facility]) KAITLYNN CHOUDHURY ([id number]) 1960 M TRN Date Time Provider Department 01/08/18 9:00 AM PATRICIA PULLIAM ([place]) [facility] During your visit today, we recorded the following information about you: Temperature Pulse Blood pressure Weight 99.1 degrees 67/minute 139/85 116.8 kg Patricia Pulliam APRN.CNP 01/10/2018 1:18 PM Signed Chief Complaint Patient presents with: Established Patient HPI: Kaitlynn Choudhury is a 57 year old male who presents here today for follow up MM/evaluation for next cycle of aredia. Per Dr. Newton's previous note: Diagnosis: 1) Multiple myeloma t(11;14) IgG kappa. ? Bone marrow biopsy 2013: [place] restricted plasma cells. Could not quantify well--bloody aspirate, but nearly all plasma cells. Flow cytometry confirmed. FISH positive for IGH/CCND1 t(11;14). ? Initial bone survey IMPRESSION: 1. Suggest lucent or lytic lesion midshaft RIGHT femur 2. Question of a vague lucency in the distal femur on the LEFT side 3. Lucency projecting over L2 and a lateral view may be due to bowel gas. CT or MRI would be suggested since there was concern with this area on an outside study. 4. No evidence of paraspinal or extrapleural masses. ? HPI: The patient is a 56-year-old male who had cervical fusion surgery about 4 years prior to presentation here. Had been seeing a [facility] physician for about a year and half for low back pain. ? 2013, he was having more pain and presented to the ED at [facility]. CT scan A/P done 09/15/2013 revealed a normal-appearing liver as well as gallbladder next her hepatobiliary system. There was splenomegaly with the spleen measuring 16.5 cm in length. The only other abnormality was a diffuse degenerative changes of visualized lumbar spine with a 2.5 cm lucent lesion on the right side of the L2 vertebral body. There was minimal cortical disruption anterior laterally in the lesion was not present in a prior MRI study of 07/30/2012. ? CBC was significant only for mild increase in platelets. ? Had bone scan done as outpatient 09/19/2013 that showed mild increase in activity in mid right femur of questionable etiology. ? Back pain was the only symptom he had--Started working out more in April and was purposely trying to lose weight. ? Initial therapy with Rd. ? Underwent autologous SCT--Patient's stem cells were mobilized with filgrastim and plerixafor. Patient collected CD34/kg 5.60 x 106 over 1 collection day. Nausea, vomiting, diarrhea and headache after plerixafor. ? 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 Day: +11. Counts recovered. Discharge today. Protocol(s): Auto 3422 1C Melphalan 200 Preparative regimen: Melphalan Mobilization regimen: G+P Stem cell source: apheresis CD34 cell dose (x10e6/kg): 5.6 ? Tolerated well with mild mucositis. No NF. N/V with melphalan. ? Previous therapy: 1) Rd. 2) Autologous BMT. 3) Revlimid maintenance through 08/2016. Stopped due to diarrhea. ? Current therapy: 1) Pamidronate (Zometa caused severe flu-like symptoms). ? Pt. is followed by CPM for back/neck pain. ?? Appetite:too much. ?Energy level:none Denies fevers I have a cold now. Mouth:denies sores Resp:+ dry cough x past three days my grandkids came over and gave this to me denies sob, occ. corea Cardiac:denies chest pain/palpitations GI:denies abd pain, n/v, moving bowels regularly :denies dysuria/hematuria Extrem:low back pain, lower neck-Followed by [facility]PM-Dr. Murrieta. Neuro:+neuropathy to hands/feet, L hand 2 fingers Skin:denies rashes/lesions Heme:denies bleeding The ROS is otherwise negative. Past medical history, appointments, medications, allergies reviewed. No changes. EXAM: BP 139/85 Pulse 67 Temp 37.3 ?C (99.1 ?F) (Oral) Wt 116.8 kg (257 lb 8 oz) BMI 36.05 kg/m? APPEARANCE Well appearing, alert, in no acute distress, well- hydrated, well nourished. HEART RRR with normal S1 and S2, no murmurs LUNG clear to auscultation LYMPH NODES No cervical lymphadenopathy, No supraclavicular lymphadenopathy and No axillary lymphadenopathy. ABDOMEN bowel sounds normoactive, no bruits, soft, non-tender, non-distended, without organomegaly or palpable masses EXTREMITIES No edema NEURO Awake, alert and oriented x 3, Normal gait and No involuntary motions. SKIN Skin color, texture, turgor normal, no suspicious rashes or lesions LABS: Component Latest Ref Rng AND Units 10/10/2017 01/02/2018 WBC, [place] 3.70 - 11.00 k/uL 4.53 3.34 (L) RBC, [place] 4.20 - 6.00 m/uL 4.36 4.17 (L) Hemoglobin, [place] 13.0 - 17.0 g/dL 13.7 13.0 Hematocrit, [place] 39.0 - 51.0 % 39.2 38.3 (L) MCV, [place] 80.0 - 100.0 fL 89.9 91.8 MCH, [place] 26.0 - 34.0 pg 31.4 31.2 MCHC, [place] 30.5 - 36.0 g/dL 34.9 33.9 RDW, [place] 11.5 - 15.0 % 14.2 13.8 Platelet Cnt, [place] 150 - 400 k/uL 172 156 MPV, [place] 9.0 - 12.7 fL 9.1 8.8 (L) Absol Gran Count 1.45 - 7.50 k/uL 2.67 2.10 Component Latest Ref Rng AND Units 10/10/2017 01/02/2018 Protein, Total 6.3 - 8.0 g/dL 6.6 6.7 Albumin 3.9 - 4.9 g/dL 4.4 4.3 Calcium 8.5 - 10.2 mg/dL 9.4 9.5 Bilirubin, Total 0.2 - 1.3 mg/dL 0.6 0.5 Alkaline Phosphatase 36 - 108 U/L 77 81 AST 14 - 40 U/L 35 27 Glucose 74 - 99 mg/dL 91 88 BUN 9 - 24 mg/dL 20 15 Creatinine 0.73 - 1.22 mg/dL 1.20 0.96 Sodium 136 - 144 mmol/L 139 142 Potassium 3.7 - 5.1 mmol/L 3.5 (L) 3.8 Chloride 97 - 105 mmol/L 95 (L) 101 CO2 22 - 30 mmol/L 23 29 Anion Gap 9 - 18 mmol/L 21 (H) 12 ALT 10 - 54 U/L 56 (H) 48 eGFR- >60 >60 eGFR-All Other Races . >60 >60 Component Latest Ref Rng AND Units 10/10/2017 01/02/2018 [place] Free, Serum 3.30 - 19.40 mg/L 9.0 8.1 Lambda Free, Serum 5.7 - 26.3 mg/L 4.4 (L) 4.8 (L) K/L Ratio, Serum 0.26 - 1.65 2.05 (H) 1.69 (H) Component Latest Ref Rng AND Units 10/10/2017 01/02/2018 MPA IgG, Serum 717 - 1,411 mg/dL 709 (L) 587 (L) MPA IgA, Serum 78 - 391 mg/dL 46 (L) 36 (L) MPA IgM, Serum 53 - 334 mg/dL 41 (L) 33 (L) MPA [place], Serum 534 - 1,267 mg/dL 564 MPA Lambda, Serum 253 - 653 mg/dL 243 (L) MPA [place]/Lambda Ratio 1 - 3 2.32 MPA Result No M protein is identified. No M protein is identified. A poorly defined region of restricted mobility is present that may represent an M (A) . . . Staff Review (MPA) Reviewed by Tee Corrales MD ([id number]) Reviewed by Qasim Henradez M.D. ([id number]) Interpretation ([facility]) SEE COMMENT ASSESSMENT/PLAN: 1. Multiple myeloma in remission (HCC) - ICD9: 203.01, ICD10: C90.[address] Newton's previous note: Had lytic bone lesions with no other end organ damage. Tolerated and responding to Revlimid well. Resolution of low level serum MP following first cycle. s/p ASCT. -Maintenance Revlimid stopped after 2 years of therapy secondary to ongoing diarrhea. -I reviewed his lab work with him today in detail--remains in remission. -Did not get bone survey in January. Plan: -Pamidronate every 3 months. -Recheck myeloma labs/bone survey in 3 months. ? Supportive care: No anemia. No hypercalcemia. Standard risk for VTE risk--Off ASA. No ID issues at present--no longer has need for shingles prophylaxis. ? He will continue following under the care of pain management. I will not be prescribing narcotic medications. ? ? - Tolerating treatment well. - Bone survey as indicated by symptoms/MM labs. - Follow up with CPM as scheduled. - Pamidronate every 3 months. - Proceed as scheduled on 01/16/18 for aredia. - Follow up with Dr. Newton in 3 months with CBC/CMP/MM labs/prior to next treatment. - Pt. aware to call office with any questions/concerns. ? The patient indicates understanding of these issues and agrees with the plan. Patricia Pulliam, ROBERTA.SAP SECURITY CONSULTANT Referring Provider: AGUSTIN NEWTON [[id number]] Allergies As of Date: 01/08/2018 Noted Allergy Reaction ZOMETA (ZOLEDRONIC ACID) 11/21/2013 14 - Other: See Comments Comments: Severe chest pain, nausea, body aches, seizures. Tolerated pamidronate. PENICILLINS 09/27/2013 4 - Hives Date Reviewed: 01/08/2018 Reviewed by: Patricia ([facility]) Shasha - Fully Assessed Reason for Visit: Established Patient [175] Primary Visit Diagnosis:Multiple myeloma in remission (HCC) [C90.01] Follow-up and Disposition History Recorded Prescriptions as of 01/08/2018 Sig: IBUPROFEN PM ORAL Take 2 tablets by mouth at be* ONDANSETRON HCL 8 MG TABLET Take 1 tablet by mouth every * HYDROCODONE 5 MG-ACETAMINOPHE* Take 1 tablet by mouth three * ACETAMINOPHEN 500 MG TABLET Take 1,000 mg by mouth twice * NEBIVOLOL 10 MG TABLET Take 10 mg by mouth once hafsa* Problem List As Of Date 01/08/2018 Noted Resolved Splenomegaly [R16.1] INVALID FOR* Abnormal bone radiograph [R93.7] INVALID FOR* Lytic lesion of bone on x-ray [M89.9] INVALID FOR* Multiple myeloma (HCC) [C90.00] INVALID FOR* Priority: B More... Chronic back pain greater than 3 months duratio*INVALID FOR* Chronic pain [G89.29] INVALID FOR* Priority: D More... Autologous bone marrow transplantation status (*INVALID FOR* Priority: A More... Hypertension [I10] INVALID FOR* Priority: D More... Immunodeficiency (HCC) [D84.9] INVALID FOR* Priority: A More... CINV (chemotherapy-induced nausea and vomiting)*INVALID FOR* Priority: C More... Constipation [K59.00] INVALID FOR* More... Pancytopenia due to chemotherapy (HCC) [D61.810]INVALID FOR* More... Hypokalemia [E87.6] INVALID FOR* More... Transaminitis [R74.0] INVALID FOR* Chronic bilateral low back pain without sciatic*INVALID FOR* Encounter Status:Closed by PATRICIA PULLIAM CNP on 01/10/18 PERIOD / VOLUME Collected: 01/07/2018 Status: F Source: [place] 7:59 AM [facility] REPOSITORY TYPE CODE TESTS RESULT OUT OF REFERENCE UNITS RANGE LAB PER hr Period 24 LAB VOL mL Volume 3000 LAB COLSDT Collection Start 9150501 Date LAB COLSTM Collection Start 0800 Time LAB COLEDT Collection End 9160501 Date LAB COLETM Collection End 0800 Time Performed By: #### [id number] #### [facility] [address] [place], [place] [address] PROT ELECT UR 24 HR Collected: 01/07/2018 Status: F Source: [place] 7:59 AM [facility] REPOSITORY TYPE CODE TESTS RESULT OUT OF REFERENCE UNITS RANGE LAB UTPROT 0-20 mg/dL <4 Protein Ur Conc (UEPG24) LAB 24TPGM <0.16 gm/24 Hr <0.12 Protein Urine 24hr (UEPG24) LAB 24UALB % 39.0 Albumin, 24 hr LAB UA1G24 % 11.2 Alpha 1 Globul, 24hr LAB UA2G24 % 16.8 Alpha 2 Globul, 24hr LAB UBEG24 % 13.5 Beta Globulin, 24hr LAB UGAG24 % 19.4 Gamma Globulin, 24hr LAB UPEI24 No Interpretatio definitive M n, 24hr protein is identified on protein electrophoresis. Result Comment: The absence of M protein on urine protein electrophoresis does not entirely exclude the presence of monoclonal gammopathy in urine. Monoclonal protein analysis (immunofixation), a more definitive test to exclude monoclonal gammopathy, may be requested on this specimen if clinically indicated. LAB MSPK24 0.00 gm/24 Hr M 0.00 Wilder Quant/24 Hr LAB UPES24 Staff Review, 24hr Reviewed by Qasim Hernadez M.D. ([id number]) Performed By: #### [id number] #### [facility] [address] [place], [place] [address] MONOCLONAL PROT UR Collected: 01/02/2018 Status: F Source: [place] 11:05 AM [facility] REPOSITORY TYPE CODE TESTS RESULT OUT OF REFERENCE UNITS RANGE LAB UMPA No M protein is identified. No UMPA M protein is Result identified. LAB UMPSTF UMPA Reviewed by Staff Review Tee Corrales MD ([id number]) Performed By: #### URMPA, UEPG #### [facility] [address] [place], [place] [address] PROTEIN ELEC,UR RAND Collected: 01/02/2018 Status: F Source: [place] 11:05 AM [facility] REPOSITORY TYPE CODE TESTS RESULT OUT OF REFERENCE UNITS RANGE LAB UTPR 0-20 mg/dL Protein Urine Random 6 LAB UALB % Albumin 53.2 LAB UA1G >0 % Alpha 1 Globulin 9.4 LAB UA2G % Alpha 2 Globulin 19.3 LAB UBEG % Beta Globulin 8.9 LAB UGAG % Gamma Globulin 9.3 LAB UPEINT Interpretation SEE COMMENT Result Comment: No definitive M protein is identified on protein electrophoresis. LAB UPESTF Reviewed by Tee Staff Review Virgil Corrales MD ([id number]) Performed By: #### URMPA, UEPG #### [facility] [address] [place], [place] [address] SHARON ABS GR + CBC Collected: 01/02/2018 Status: F Source: [place] 11:04 AM [facility] REPOSITORY TYPE CODE TESTS RESULT OUT OF REFERENCE UNITS RANGE LAB WWBC 3.70-11.00 k/uL Low [place] WBC 3.34 LAB WRBC 4.20-6.00 m/uL Low [place] RBC 4.17 LAB WHGB 13.0-17.0 g/dL [place] Hemoglobin 13.0 LAB WHCT 39.0-51.0 % Low [place] Hematocrit 38.3 LAB WMCV 80.0-100.0 fL [place] MCV 91.8 LAB WMCH 26.0-34.0 pg [place] MCH 31.2 LAB WMCHC 30.5-36.0 g/dL [place] MCHC 33.9 LAB WRDW 11.5-15.0 % [place] RDW 13.8 LAB WPLT 150-400 k/uL [place] Platelet Cnt 156 LAB WMPV 9.0-12.7 fL Low [place] MPV 8.8 Result Comment: Test performed at: [facility] [place], [address] [place] [address]. LAB ABGRAN 1.45-7.50 k/uL Absol Gran 2.10 Count B2 MICROGLOBULIN Collected: 01/02/2018 Status: F Source: [place] 11:04 AM [facility] REPOSITORY TYPE CODE TESTS RESULT OUT OF REFERENCE UNITS RANGE LAB B2M 0.8-2.2 mg/L B2 Microglobulin 1.9 Performed By: #### B2M, CMP, KLFRS, SEPG, MPASRM #### [facility] [address] [place] [id number] COMP METABOLIC PANEL Collected: 01/02/2018 Status: F Source: [place] 11:04 [facility] REPOSITORY TYPE CODE TESTS RESULT OUT OF REFERENCE UNITS RANGE LAB TP 6.3-8.0 g/dL Protein, Total 6.7 LAB ALB 3.9-4.9 g/dL Albumin 4.3 LAB CA 8.5-10.2 mg/dL Calcium, Total 9.5 LAB TBIL 0.2-1.3 mg/dL Bilirubin, Total 0.5 LAB ALKP 36-108 U/L Alkaline Phosphatase 81 LAB AST 14-40 U/L AST 27 LAB GLU 74-99 mg/dL Glucose 88 Result Comment: The [place] Diabetes Association (ADA) provides guidance for cutoff values for fasting glucose and random glucose. The ADA defines fasting as no caloric intake for at least 8 hours. Fas ting plasma glucose results between 100 to 125 mg/dL indicate increased risk for diabetes (prediabetes). Fasting plasma glucose results greater than or equal to 126 mg/dL meet the criteria for diagnosis of diabetes. In the absence of unequivocal hyperglycemia, results should be confirmed by repeat testing. In a patient with classic symptoms of hyperglycemia or hyperglycemic crisis, random plasma glucose results greater than or equal to 200 mg/dL meet the criteria for diagnosis of diabetes. Reference: Standards of Medical Care in Diabetes 2016, [place] Diabetes Association. Diabetes Care. 2016.39(Suppl 1). LAB BUN 9-24 mg/dL BUN 15 LAB CRET 0.73-1.22 mg/dL Creatinine 0.96 LAB NA 136-144 mmol/L Sodium 142 LAB K 3.7-5.1 mmol/L Potassium 3.8 LAB CL 97-105 mmol/L Chloride 101 LAB CO2 22-30 mmol/L CO2 29 LAB AGAP 9-18 mmol/L Anion Gap 12 LAB ALT 10-54 U/L ALT 48 LAB GFRAA eGFR- Amer. >60 LAB GFRNAA . eGFR-All Other Races >60 Result Comment: eGFR (Estimated GFR) Units of measure: mL/min/1.73 meters squared eGFR is derived from the reexpressed MDRD Study equation using the following parameters: serum creatinine, age, gender and race. The creatinine assay has been calibrated to be traceable to IDMS. An eGFR <60 mL/min/1.73m2 for >3 months is consistent with chronic kidney disease. Refer to KDOQI guidelines for clinical interpretation. In patients with unstable renal function, e.g. those with acute kidney injury, the eGFR may not accurately reflect actual GFR. Performed By: #### B2M, CMP, KLFRS, SEPG, MPASRM #### [facility] [address] [place] [address] KAPPA/CALDERON,FREE,SER Collected: Status: F Source: [place] 01/02/2018 11:04 AM [facility] REPOSITORY TYPE CODE TESTS RESULT OUT OF REFERENCE UNITS RANGE LAB FKAPS 3.30-19.40 mg/L [place], 8.1 Free, Serum Result Comment: Rarely, increased serum free light chains values may not be detected due to antigen excess phenomenon. Results should always be correlated with other laboratory results and clinical findings. LAB FLAMS 5.7-26.3 mg/L Low Lambda, Free, Serum 4.8 Result Comment: Rarely, increased serum free light chains values may not be detected due to antigen excess phenomenon. Results should always be correlated with other laboratory results and clinical findings. LAB KLRAT 0.26-1.65 High K/L Ratio, 1.69 Serum Performed By: #### B2M, CMP, KLFRS, SEPG, MPASRM #### [facility] [address] [place] [address] PROTEIN ELECTROPHOR. Collected: 01/02/2018 Status: F Source: [place] 11:04 [facility] REPOSITORY TYPE CODE TESTS RESULT OUT OF REFERENCE UNITS RANGE LAB TPSPE 6.0-8.4 g/dL Total Protein, SPE 6.5 LAB ALBE 3.37-4.23 gm/dL Albumin 3.87 LAB A1GL 0.18-0.31 gm/dL Alpha 1 Globulin 0.25 LAB A2GL 0.52-0.97 gm/dL Alpha 2 Globulin 0.67 LAB BEGL 0.84-1.36 gm/dL Beta Globulin 1.01 LAB GAGL 0.70-1.44 gm/dL Gamma Globulin Low 0.69 LAB SPEINT Interpretation SEE COMMENT Result Comment: No definitive M protein is identified on protein electrophoresis. LAB LOC M Protein N/A Location LAB GPERDL 0.00 gm/dL M [place] 0.00 Concentratn LAB SPESTF SPE Staff Review Reviewed by Tee Corrales MD ([id number]) Performed By: #### B2M, CMP, KLFRS, SEPG, MPASRM #### [facility] [address] [place], [place] [id number] MONOCLONL PROTEIN,BL Collected: 01/02/2018 Status: F Source: [place] 11:04 [facility] REPOSITORY TYPE CODE TESTS RESULT OUT OF REFERENCE UNITS RANGE LAB MPAIGG 717-1411 mg/dL Low MPA Serum 587 IgG LAB MPAIGA 78-391 mg/dL Low MPA Serum 36 IgA LAB MPAIGM 53-334 mg/dL Low MPA Serum 33 IgM LAB MPAK 534-1267 mg/dL Serum (NOTE) [place] Result Comment: [place] result =157 mg/dL. Disregard [facility] reference range. [facility] [place] Reference Range: 176-443 mg/dL Test performed by: [facility], [place], [place] This assay provides a measurement of the total kappa and the total lambda light chains, i.e., the amount of free (unattached) light chain in circulation and the amount of light chain linked to heavy chain in intact immunoglobulin molecules. Assays for serum free light chain only, kappa and lambda with ratio, may be more useful in evaluating and managing light chain gammopathies including those associated with myeloma, lymphoproliferative disorders, and amyloidosis. Results from the [facility] assay cannot be compared directly with previously generated results. LAB MPAL 253-653 mg/dL Serum Lambda (NOTE) Result Comment: Lambda result =66 mg/dL. Disregard [facility] reference range. [facility] Lambda Reference Range: 91-240 mg/dL Test performed by: [employer], [place], [place] This assay provides a measurement of the total kappa and the total lambda light chains, i.e., the amount of free (unattached) light chain in circulation and the amount of light chain linked to heavy chain in intact immunoglobulin molecules. Assays for serum free light chain only, kappa and lambda with ratio, may be more useful in evaluating and managing light chain gammopathies inlcuding those associated with myeloma, lymphoproliferative disorders, and amyloidosis. Results from the [facility] assay cannot be compared directly with previously generated results. LAB MPAKL 1-3 MPA Chang/Vizcaino Ratio (NOTE) Result Comment: [place]/Lambda ratio =2.38 Disregard [facility] reference range. [facility] [place]/Lambda Ratio Reference Range: 1.29-2.55 Test performed by: [facility], [place], [place] This assay provides a measurement of the total kappa and the total lambda light chains, i.e., the amount of free (unattached) light chain in circulation and the amount of light chain linked to heavy chain in intact immunoglobulin molecules. Assays for the serum free light chain only, kappa and lambda with ratio, may be more useful in evaluating and managing light chain gammopathies including those associated with myeloma, lymphoproliferative disorders, and amyloidosis. Results from the [facility] assay cannot be compared directly with previously generated results. LAB MPAR No M protein is identified. MPA Result A Abnormal poorly defined Alert region of restricted mobility is present that may represent an M protein. LAB INTP MPA SEE Interpretation COMMENT Result Comment: Poorly defined region of restricted mobility in IgG and kappa lanes. Pattern is less well defined or fainter than typically seen in monoclonal gammopathy. This could represent either an atypical presentation of polyclonal immunoglobulins or the presence of a low level IgG kappa monoclonal gammopathy. If clinically indicated, urine monoclonal protein analysis and serum free light chain measurements are recommended to evaluate further for monoclonal gammopathy. Clinical correlation is necessary. LAB MPASTF Staff Reviewed by Review Qasim Hernadez M.D. ([id number]) Performed By: #### B2M, CMP, KLFRS, SEPG, MPASRM #### [facility] [place] [facility] [address] [place], [place] [address] MRI LUMBAR SPINE Observed: 10/30/2017 Status: F Source: [place] WO/W IVCON 4:02 PM [facility] REPOSITORY * * *Final Report* * * DATE OF EXAM: Oct 30 2017 4:02PM WRM [id number] - MRI LUMBAR SPINE WO/W IVCON / PROCEDURE REASON: multiple diagnoses * * * * Physician Interpretation * * * * EXAMINATION: MRI LUMBAR SPINE WO/W IVCON CLINICAL HISTORY: Multiple myeloma in remission Abnormal findings on diagnostic imaging of other parts of musculoskeletal system Disorder of bone, unspecified Low back pain TECHNIQUE: Routine lumbosacral spine MR protocol without and with intravenous gadolinium. MQ: [id number] Contrast: 20ml mL Dotarem IV COMPARISON: MRI lumbar spine from 09/24/2014. Bone survey from 08/04/2017. RESULT: Counting reference: Lumbosacral junction. For the purposes of this report, L4-5 is considered the level of the iliac crest. Postop: Since the prior MRI examination there has been interval kyphoplasty/vertebroplasty at the L2 vertebra centered at the previously identified large right-sided hemangioma. Alignment: Alignment is anatomic. Bone marrow signal/fracture: No evidence of pathologic marrow infiltration. Stable Schmorl's node along the superior right aspect of L2. Conus: The conus is within normal limits of signal intensity and morphology. Conus terminates at L1. Nerve roots are normal in appearance. There is no pathologic enhancement. Paraspinal soft tissues: Paraspinal soft tissues are within normal limits. Lower thoracic spine: Visualized lower thoracic canal and foramina are patent. T12-L1: Canal and foramina are patent. L1-L2: Canal and foramina are patent. L2-L3: Canal and foramina are patent L3-L4: Canal and foramina are patent L4-L5: Canal is patent. Foramina are mildly narrowed. L5-S1: Small stable central protrusion superimposed on disc osteophyte complex causes mild narrowing the spinal canal. Bilateral moderate neural foraminal stenosis. Sacrum and iliac wings: The visualized sacrum and iliac wings are within normal limits. IMPRESSION: Interval kyphoplasty/vertebroplasty at L2. Stable small central protrusion L5-S1. Prosthetics Lab Technician: PSCMike Transcribe Date/Time: Oct 30 2017 11:30P Dictated by : BATSHEVA TAY MD This examination was interpreted and the report reviewed and electronically signed by: BATSHEVA TAY MD on Oct 30 2017 11:34PM EST [id number] Observed: 10/30/2017 Status: COMPLETED Source: [place] 3:50 PM [facility] REPOSITORY HNO ID: [id number] Author: Julita (Tj Underwood Service: (none) Author Type: Bdr Type: Progress Notes Filed: 10/30/2017 3:51 PM Note Text: Radiology Service Progress Note PATIENT NAME: Kaitlynn Choudhury DATE OF SERVICE: October 30, 2017 TIME: 3:50 PM PATIENT IDENTITY VERIFICATION COMPLETED USING TWO (2) METHODS: Patient confirmed name verbally and Date of . PATIENT GENDER DATA: Male PATIENT RELEVANT IMPLANT DATA REVIEWED: Yes CONTRAST INDUCED NEPHROPATHY RISK FACTORS: Not applicable CREATININE: Creatinine Date Value Ref Range Status 10/10/2017 1.20 0.73 - 1.22 mg/dL Final 07/19/2017 1.00 0.73 - 1.22 mg/dL Final 04/25/2017 1.02 0.73 - 1.22 mg/dL Final eGFR-All Other Races Date Value Ref Range Status 10/10/2017 >60 . Final Comment: eGFR (Estimated GFR) Units of measure: mL/min/1.73 meters squared eGFR is derived from the reexpressed MDRD Study equation using the following parameters: serum creatinine, age, gender and race. The creatinine assay has been calibrated to be traceable to IDMS. An eGFR <60 mL/min/1.73m2 for >3 months is consistent with chronic kidney disease. Refer to KDOQI guidelines for clinical interpretation. In patients with unstable renal function, e.g. those with acute kidney injury, the eGFR may not accurately reflect actual GFR. eGFR- Date Value Ref Range Status 10/10/2017 >60 Final P.O.C.T. RESULTS: N/A October 30, 2017 RADIOLOGIST NOTIFIED?: No ALLERGIES: Reviewed and unchanged CONTRAST ALLERGY: NO. PERIPHERAL IV ACCESS: Ambulatory: IV type: A peripheral IV was started in the Right antecubital site with a Angio cath: 22 gauge., Site assessment: Clean,Dry and Intact, Site disposition Discontinued RADIOLOGY DEPARTMENT: MR; Exam(s) Completed: Spine: Lumbar spine SIGNED BY: RT Nadeen October 30, 2017 3:50 PM PROGRESS Observed: 10/16/2017 Status: COMPLETED Source: [place] 2:02 PM [facility] REPOSITORY HNO ID: [id number] Author: Patricia Lora) Shasha Service: (none) Author Type: Nurse Practitioner Type: Progress Notes Filed: 10/17/2017 1:40 PM Note Text: Chief Complaint Patient presents with: Established Patient HPI: Kaitlynn Choudhury is a 57 year old male who presents here today for follow up MM/evaluation for treatment next week. Per Dr. Newton's previous note: Diagnosis: 1) Multiple myeloma t(11;14) IgG kappa. ? Bone marrow biopsy 2013: [place] restricted plasma cells. Could not quantify well--bloody aspirate, but nearly all plasma cells. Flow cytometry confirmed. FISH positive for IGH/CCND1 t(11;14). ? Initial bone survey IMPRESSION: 1. Suggest lucent or lytic lesion midshaft RIGHT femur 2. Question of a vague lucency in the distal femur on the LEFT side 3. Lucency projecting over L2 and a lateral view may be due to bowel gas. CT or MRI would be suggested since there was concern with this area on an outside study. 4. No evidence of paraspinal or extrapleural masses. ? HPI: The patient is a 56-year-old male who had cervical fusion surgery about 4 years prior to presentation here. Had been seeing a [facility] physician for about a year and half for low back pain. ? 2013, he was having more pain and presented to the ED at [facility]. CT scan A/P done 09/15/2013 revealed a normal-appearing liver as well as gallbladder next her hepatobiliary system. There was splenomegaly with the spleen measuring 16.5 cm in length. The only other abnormality was a diffuse degenerative changes of visualized lumbar spine with a 2.5 cm lucent lesion on the right side of the L2 vertebral body. There was minimal cortical disruption anterior laterally in the lesion was not present in a prior MRI study of 07/30/2012. ? CBC was significant only for mild increase in platelets. ? Had bone scan done as outpatient 09/19/2013 that showed mild increase in activity in mid right femur of questionable etiology. ? Back pain was the only symptom he had--Started working out more in April and was purposely trying to lose weight. ? Initial therapy with Rd. ? Underwent autologous SCT--Patient's stem cells were mobilized with filgrastim and plerixafor. Patient collected CD34/kg 5.60 x 106 over 1 collection day. Nausea, vomiting, diarrhea and headache after plerixafor. ? 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 Day: +11. Counts recovered. Discharge today. Protocol(s): Auto 3422 1C Melphalan 200 Preparative regimen: Melphalan Mobilization regimen: G+P Stem cell source: apheresis CD34 cell dose (x10e6/kg): 5.6 ? Tolerated well with mild mucositis. No NF. N/V with melphalan. ? Previous therapy: 1) Rd. 2) Autologous BMT. 3) Revlimid maintenance through 08/2016. Stopped due to diarrhea. ? Current therapy: 1) Pamidronate (Zometa caused severe flu-like symptoms). ? Pt. is followed by CPM for back/neck pain. Pt. cancelled MRI d/t anxiety. Pt. adds that he was playing golf last week and hurt his back. ?? Appetite:good. Energy level:it's been ok Denies fevers or recent illness Mouth:denies sores Resp:denies cough or sob Cardiac:denies chest pain/palpitations GI:denies abd pain, n/v, moving bowels regularly :denies dysuria/hematuria Extrem:low back pain, lower neck-I think I hurt my back playing golf last week. It's my R low back that wraps around to the front groin. Followed by CPM-Dr. Murrieta. Neuro:+neuropathy to hands/feet, L hand 2 fingers Skin:denies rashes/lesions Heme:denies bleeding The ROS is otherwise negative. Past medical history, appointments, medications, allergies reviewed. No changes. EXAM: BP 142/95 Pulse 65 Temp 37.2 ?C (99 ?F) (Oral) Wt 109.8 kg (242 lb) BMI 33.88 kg/m? APPEARANCE Well appearing, alert, in no acute distress, well-hydrated, well nourished. HEART RRR with normal S1 and S2, no murmurs LUNG clear to auscultation LYMPH NODES No cervical lymphadenopathy, No supraclavicular lymphadenopathy and No axillary lymphadenopathy. ABDOMEN bowel sounds normoactive, no bruits, soft, non-tender, non-distended, without organomegaly or palpable masses EXTREMITIES No edema NEURO Awake, alert and oriented x 3, Normal gait and No involuntary motions. SKIN Skin color, texture, turgor normal, no suspicious rashes or lesions LABS: Component Latest Ref Rng AND Units 07/19/2017 10/10/2017 WBC, [place] 3.70 - 11.00 k/uL 3.09 (L) 4.53 RBC, [place] 4.20 - 6.00 m/uL 4.06 (L) 4.36 Hemoglobin, [place] 13.0 - 17.0 g/dL 12.9 (L) 13.7 Hematocrit, [place] 39.0 - 51.0 % 38.0 (L) 39.2 MCV, [place] 80.0 - 100.0 fL 93.6 89.9 MCH, [place] 26.0 - 34.0 pg 31.8 31.4 MCHC, [place] 30.5 - 36.0 g/dL 33.9 34.9 RDW, [place] 11.5 - 15.0 % 14.8 14.2 Platelet Cnt, Sharon 150 - 400 k/uL 150 172 MPV, [place] 9.0 - 12.7 fL 9.0 9.1 Absol Gran Count 1.45 - 7.50 k/uL 1.71 2.67 Component Latest Ref Rng AND Units 07/19/2017 10/10/2017 Protein, Total 6.3 - 8.0 g/dL 6.9 6.6 Albumin 3.9 - 4.9 g/dL 4.4 4.4 Calcium 8.5 - 10.2 mg/dL 9.4 9.4 Bilirubin, Total 0.2 - 1.3 mg/dL 0.8 0.6 Alkaline Phosphatase 36 - 108 U/L 92 77 AST 14 - 40 U/L 95 (H) 35 Glucose 74 - 99 mg/dL 86 91 BUN 9 - 24 mg/dL 19 20 Creatinine 0.73 - 1.22 mg/dL 1.00 1.20 Sodium 136 - 144 mmol/L 139 139 Potassium 3.7 - 5.1 mmol/L 4.2 3.5 (L) Chloride 97 - 105 mmol/L 100 95 (L) CO2 22 - 30 mmol/L 25 23 Anion Gap 9 - 18 mmol/L 14 21 (H) ALT 10 - 54 U/L 100 (H) 56 (H) eGFR- >60 >60 eGFR-All Other Races . >60 >60 RADIOLOGY: Bone survey 08/04/17: IMPRESSION: No significant interval change 1. ? Focal lesion in the RIGHT femoral shaft similar to the previous study 2. ?No new lytic lesions 3. ?No evidence of paraspinal or extrapleural masses. ASSESSMENT/PLAN: 1. Multiple myeloma in remission (HCC) - ICD9: 203.01, ICD10: C90.[address] Newton's previous note: Had lytic bone lesions with no other end organ damage. Tolerated and responding to Revlimid well. Resolution of low level serum MP following first cycle. s/p ASCT. -Maintenance Revlimid stopped after 2 years of therapy secondary to ongoing diarrhea. -I reviewed his lab work with him today in detail--remains in remission. -Did not get bone survey in January. Plan: -Pamidronate every 3 months. -Recheck myeloma labs/bone survey in 3 months. ? Supportive care: No anemia. No hypercalcemia. Standard risk for VTE risk--Off ASA. No ID issues at present--no longer has need for shingles prophylaxis. ? He will continue following under the care of pain management. I will not be prescribing narcotic medications. - Follow up with CPM as scheduled. - Advise pt. to take K-dur as directed-he will call his PCP for new Rx. - Will give rx for 1 ativan prior to MRI. - Please reschedule MRI lumbar spine. - Pamidronate every 3 months. - Proceed as scheduled on October 23 for aredia. - Follow up as scheduled. - Pt. aware to call office with any questions/concerns. The patient indicates understanding of these issues and agrees with the plan. Patricia Pulliam APRN.[employer] SECURITY CONSULTANT CNOVSP Observed: 10/16/2017 Status: COMPLETED Source: [place] 2:00 PM [facility] REPOSITORY Visit (SP) Office ([facility]) KAITLYNN CHOUDHURY ([id number]) 1960 M TRN Date Time Provider Department 10/16/17 2:00 PM PATRICIA PULLIAM (TOÑA) MEREDITH During your visit today, we recorded the following information about you: Temperature Pulse Blood pressure Weight 99 degrees 65/minute 142/95 109.8 kg Rosy Blackmon LPN 10/16/2017 2:02 PM Signed Est patient. Three month office visit. Discuss recent labs. Rosy Pulliam APRN.TOÑA 10/17/2017 1:40 PM Signed Chief Complaint Patient presents with: Established Patient HPI: Kaitlynn Choudhury is a 57 year old male who presents here today for follow up MM/evaluation for treatment next week. Per Dr. Newton's previous note: Diagnosis: 1) Multiple myeloma t(11;14) IgG kappa. ? Bone marrow biopsy 2013: [place] restricted plasma cells. Could not quantify well--bloody aspirate, but nearly all plasma cells. Flow cytometry confirmed. FISH positive for IGH/CCND1 t(11;14). ? Initial bone survey IMPRESSION: 1. Suggest lucent or lytic lesion midshaft RIGHT femur 2. Question of a vague lucency in the distal femur on the LEFT side 3. Lucency projecting over L2 and a lateral view may be due to bowel gas. CT or MRI would be suggested since there was concern with this area on an outside study. 4. No evidence of paraspinal or extrapleural masses. ? HPI: The patient is a 56-year-old male who had cervical fusion surgery about 4 years prior to presentation here. Had been seeing a [facility] physician for about a year and half for low back pain. ? 2013, he was having more pain and presented to the ED at [facility]. CT scan A/P done 09/15/2013 revealed a normal-appearing liver as well as gallbladder next her hepatobiliary system. There was splenomegaly with the spleen measuring 16.5 cm in length. The only other abnormality was a diffuse degenerative changes of visualized lumbar spine with a 2.5 cm lucent lesion on the right side of the L2 vertebral body. There was minimal cortical disruption anterior laterally in the lesion was not present in a prior MRI study of 07/30/2012. ? CBC was significant only for mild increase in platelets. ? Had bone scan done as outpatient 09/19/2013 that showed mild increase in activity in mid right femur of questionable etiology. ? Back pain was the only symptom he had--Started working out more in April and was purposely trying to lose weight. ? Initial therapy with Rd. ? Underwent autologous SCT--Patient's stem cells were mobilized with filgrastim and plerixafor. Patient collected CD34/kg 5.60 x 106 over 1 collection day. Nausea, vomiting, diarrhea and headache after plerixafor. ? 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 Day: +11. Counts recovered. Discharge today. Protocol(s): Auto 3422 1C Melphalan 200 Preparative regimen: Melphalan Mobilization regimen: G+P Stem cell source: apheresis CD34 cell dose (x10e6/kg): 5.6 ? Tolerated well with mild mucositis. No NF. N/V with melphalan. ? Previous therapy: 1) Rd. 2) Autologous BMT. 3) Revlimid maintenance through 08/2016. Stopped due to diarrhea. ? Current therapy: 1) Pamidronate (Zometa caused severe flu-like symptoms). ? Pt. is followed by CPM for back/neck pain. Pt. cancelled MRI d/t anxiety. Pt. adds that he was playing golf last week and hurt his back. ?? Appetite:good. Energy level:it's been ok Denies fevers or recent illness Mouth:denies sores Resp:denies cough or sob Cardiac:denies chest pain/palpitations GI:denies abd pain, n/v, moving bowels regularly :denies dysuria/hematuria Extrem:low back pain, lower neck-I think I hurt my back playing golf last week. It's my R low back that wraps around to the front groin. Followed by CPM-Dr. Murrieta. Neuro:+neuropathy to hands/feet, L hand 2 fingers Skin:denies rashes/lesions Heme:denies bleeding The ROS is otherwise negative. Past medical history, appointments, medications, allergies reviewed. No changes. EXAM: BP 142/95 Pulse 65 Temp 37.2 ?C (99 ?F) (Oral) Wt 109.8 kg (242 lb) BMI 33.88 kg/m? APPEARANCE Well appearing, alert, in no acute distress, well- hydrated, well nourished. HEART RRR with normal S1 and S2, no murmurs LUNG clear to auscultation LYMPH NODES No cervical lymphadenopathy, No supraclavicular lymphadenopathy and No axillary lymphadenopathy. ABDOMEN bowel sounds normoactive, no bruits, soft, non-tender, non-distended, without organomegaly or palpable masses EXTREMITIES No edema NEURO Awake, alert and oriented x 3, Normal gait and No involuntary motions. SKIN Skin color, texture, turgor normal, no suspicious rashes or lesions LABS: Component Latest Ref Rng AND Units 07/19/2017 10/10/2017 WBC, [place] 3.70 - 11.00 k/uL 3.09 (L) 4.53 RBC, [place] 4.20 - 6.00 m/uL 4.06 (L) 4.36 Hemoglobin, [place] 13.0 - 17.0 g/dL 12.9 (L) 13.7 Hematocrit, [place] 39.0 - 51.0 % 38.0 (L) 39.2 MCV, [place] 80.0 - 100.0 fL 93.6 89.9 MCH, [place] 26.0 - 34.0 pg 31.8 31.4 MCHC, [place] 30.5 - 36.0 g/dL 33.9 34.9 RDW, [place] 11.5 - 15.0 % 14.8 14.2 Platelet Cnt, [place] 150 - 400 k/uL 150 172 MPV, [place] 9.0 - 12.7 fL 9.0 9.1 Absol Gran Count 1.45 - 7.50 k/uL 1.71 2.67 Component Latest Ref Rng AND Units 07/19/2017 10/10/2017 Protein, Total 6.3 - 8.0 g/dL 6.9 6.6 Albumin 3.9 - 4.9 g/dL 4.4 4.4 Calcium 8.5 - 10.2 mg/dL 9.4 9.4 Bilirubin, Total 0.2 - 1.3 mg/dL 0.8 0.6 Alkaline Phosphatase 36 - 108 U/L 92 77 AST 14 - 40 U/L 95 (H) 35 Glucose 74 - 99 mg/dL 86 91 BUN 9 - 24 mg/dL 19 20 Creatinine 0.73 - 1.22 mg/dL 1.00 1.20 Sodium 136 - 144 mmol/L 139 139 Potassium 3.7 - 5.1 mmol/L 4.2 3.5 (L) Chloride 97 - 105 mmol/L 100 95 (L) CO2 22 - 30 mmol/L 25 23 Anion Gap 9 - 18 mmol/L 14 21 (H) ALT 10 - 54 U/L 100 (H) 56 (H) eGFR- >60 >60 eGFR-All Other Races . >60 >60 RADIOLOGY: Bone survey 08/04/17: IMPRESSION: No significant interval change 1. ? Focal lesion in the RIGHT femoral shaft similar to the previous study 2. ?No new lytic lesions 3. ?No evidence of paraspinal or extrapleural masses. ASSESSMENT/PLAN: 1. Multiple myeloma in remission (HCC) - ICD9: 203.01, ICD10: C90.[address] Newton's previous note: Had lytic bone lesions with no other end organ damage. Tolerated and responding to Revlimid well. Resolution of low level serum MP following first cycle. s/p ASCT. -Maintenance Revlimid stopped after 2 years of therapy secondary to ongoing diarrhea. -I reviewed his lab work with him today in detail--remains in remission. -Did not get bone survey in January. Plan: -Pamidronate every 3 months. -Recheck myeloma labs/bone survey in 3 months. ? Supportive care: No anemia. No hypercalcemia. Standard risk for VTE risk--Off ASA. No ID issues at present--no longer has need for shingles prophylaxis. ? He will continue following under the care of pain management. I will not be prescribing narcotic medications. - Follow up with CPM as scheduled. - Advise pt. to take K-dur as directed-he will call his PCP for new Rx. - Will give rx for 1 ativan prior to MRI. - Please reschedule MRI lumbar spine. - Pamidronate every 3 months. - Proceed as scheduled on October 23 for aredia. - Follow up as scheduled. - Pt. aware to call office with any questions/concerns. The patient indicates understanding of these issues and agrees with the plan. Patricia Pulliam APRN.SAP SECURITY CONSULTANT Referring Provider: AGUSTIN NEWTON [[id number]] Allergies As of Date: 10/16/2017 Noted Allergy Reaction ZOMETA (ZOLEDRONIC ACID) 11/21/2013 14 - Other: See Comments Comments: Severe chest pain, nausea, body aches, seizures. Tolerated pamidronate. PENICILLINS 09/27/2013 4 - Hives Date Reviewed: 10/16/2017 Reviewed by: Patricia (Library Services Assistant) Shasha - Fully Assessed Reason for Visit: Established Patient [175] Primary Visit Diagnosis:Multiple myeloma in remission (HCC) [C90.01] Order(s):[] LORazepam (ATIVAN) 1 mg tabletTake 1 tablet by mouth one time only for 1 dose.Disp: 1 tabletRfl: 0 ondansetron (ZOFRAN) 8 mg tabletTake 1 tablet by mouth every 8 hours as needed.Disp: 90 tabletRfl: 3 Follow-up and Disposition History Recorded Prescriptions as of 10/16/2017 Sig: ONDANSETRON HCL 8 MG TABLET Take 1 tablet by mouth every * HYDROCODONE 5 MG-ACETAMINOPHE* Take 1 tablet by mouth three * ACETAMINOPHEN 500 MG TABLET Take 1,000 mg by mouth twice * NEBIVOLOL 10 MG TABLET Take 10 mg by mouth once hafsa* LORAZEPAM 1 MG TABLET Take 1 tablet by mouth one ti* Problem List As Of Date 10/16/2017 Noted Resolved Splenomegaly [R16.1] INVALID FOR* Abnormal bone radiograph [R93.7] INVALID FOR* Lytic lesion of bone on x-ray [M89.9] INVALID FOR* Multiple myeloma (HCC) [C90.00] INVALID FOR* Priority: B More... Chronic back pain greater than 3 months duratio*INVALID FOR* Chronic pain [G89.29] INVALID FOR* Priority: D More... Autologous bone marrow transplantation status (*INVALID FOR* Priority: A More... Hypertension [I10] INVALID FOR* Priority: D More... Immunodeficiency (HCC) [D84.9] INVALID FOR* Priority: A More... CINV (chemotherapy-induced nausea and vomiting)*INVALID FOR* Priority: C More... Constipation [K59.00] INVALID FOR* More... Pancytopenia due to chemotherapy (HCC) [D61.810]INVALID FOR* More... Hypokalemia [E87.6] INVALID FOR* More... Transaminitis [R74.0] INVALID FOR* Chronic bilateral low back pain without sciatic*INVALID FOR* Visit Notes: >> Rosy Blackmon LPN MonOct 16, 2017 1:50 PM Status: Signed Est patient. Three month office visit. Discuss recent labs. Rosy Blackmon KENN Encounter Status:Closed by PATRICIA PULLIAM CNP on 10/17/17 PROTEIN ELEC,UR RAND Collected: 10/10/2017 Status: F Source: [place] 4:08 PM [facility] REPOSITORY TYPE CODE TESTS RESULT OUT OF REFERENCE UNITS RANGE LAB UTPR 0-20 mg/dL Protein Urine Random 14 LAB UALB % Albumin 39.2 LAB UA1G >0 % Alpha 1 Globulin 2.0 LAB UA2G % Alpha 2 Globulin 20.2 LAB UBEG % Beta Globulin 21.6 LAB UGAG % Gamma Globulin 17.0 LAB UPEINT Interpretation SEE COMMENT Result Comment: No definitive M protein is identified on protein electrophoresis. LAB UPESTF Reviewed by Tee Staff Review Virgil Corrales MD ([id number]) Performed By: #### FITO URMPA #### [facility] [place] [address] [place] [address] MONOCLONAL PROT UR Collected: 10/10/2017 Status: F Source: [place] 4:08 PM [facility] REPOSITORY TYPE CODE TESTS RESULT OUT OF REFERENCE UNITS RANGE LAB UMPA No M protein is identified. No UMPA M protein is Result identified. LAB UMPSTF UMPA Reviewed by Staff Review Tee Corrales MD ([id number]) Performed By: #### FITO URMPA #### [facility] [address] [place] [address] SHARON ABS GR + CBC Collected: 10/10/2017 Status: F Source: [place] 3:46 PM [facility] REPOSITORY TYPE CODE TESTS RESULT OUT OF REFERENCE UNITS RANGE LAB WWBC 3.70-11.00 k/uL [place] WBC 4.53 LAB WRBC 4.20-6.00 m/uL Sharon RBC 4.36 LAB WHGB 13.0-17.0 g/dL [place] Hemoglobin 13.7 LAB WHCT 39.0-51.0 % [place] Hematocrit 39.2 LAB WMCV 80.0-100.0 fL [place] MCV 89.9 LAB WMCH 26.0-34.0 pg [place] MCH 31.4 LAB WMCHC 30.5-36.0 g/dL [place] MCHC 34.9 LAB WRDW 11.5-15.0 % [place] RDW 14.2 LAB WPLT 150-400 k/uL [place] Platelet Cnt 172 LAB WMPV 9.0-12.7 fL [place] MPV 9.1 Result Comment: Test performed at: [facility], [address] [place] [address] Rd[address] [place] [address]. LAB ABGRAN 1.45-7.50 k/uL Absol Gran 2.67 Count B2 MICROGLOBULIN Collected: 10/10/2017 Status: F Source: [place] 3:46 PM [facility] REPOSITORY TYPE CODE TESTS RESULT OUT OF REFERENCE UNITS RANGE LAB B2M 0.8-2.2 mg/L B2 Microglobulin 2.1 Performed By: #### B2M, CMP, KLFRS, MPASRM, SEPG #### [facility] [address] [place] [id number] COMP METABOLIC PANEL Collected: 10/10/2017 Status: F Source: [place] 3:46 PM [facility] REPOSITORY TYPE CODE TESTS RESULT OUT OF REFERENCE UNITS RANGE LAB TP 6.3-8.0 g/dL Protein, Total 6.6 LAB ALB 3.9-4.9 g/dL Albumin 4.4 LAB CA 8.5-10.2 mg/dL Calcium, Total 9.4 LAB TBIL 0.2-1.3 mg/dL Bilirubin, Total 0.6 LAB ALKP 36-108 U/L Alkaline Phosphatase 77 LAB AST 14-40 U/L AST 35 LAB GLU 74-99 mg/dL Glucose 91 Result Comment: The [place] Diabetes Association (ADA) provides guidance for cutoff values for fasting glucose and random glucose. The ADA defines fasting as no caloric intake for at least 8 hours. Fas ting plasma glucose results between 100 to 125 mg/dL indicate increased risk for diabetes (prediabetes). Fasting plasma glucose results greater than or equal to 126 mg/dL meet the criteria for diagnosis of diabetes. In the absence of unequivocal hyperglycemia, results should be confirmed by repeat testing. In a patient with classic symptoms of hyperglycemia or hyperglycemic crisis, random plasma glucose results greater than or equal to 200 mg/dL meet the criteria for diagnosis of diabetes. Reference: Standards of Medical Care in Diabetes 2016, [place] Diabetes Association. Diabetes Care. 2016.39(Suppl 1). LAB BUN 9-24 mg/dL BUN 20 LAB CRET 0.73-1.22 mg/dL Creatinine 1.20 LAB NA 136-144 mmol/L Sodium 139 LAB K 3.7-5.1 mmol/L Low Potassium 3.5 LAB CL 97-105 mmol/L Low Chloride 95 LAB CO2 22-30 mmol/L CO2 23 LAB AGAP 9-18 mmol/L Anion Gap High 21 LAB ALT 10-54 U/L ALT High 56 LAB GFRAA eGFR- Amer. >60 LAB GFRNAA . eGFR-All Other Races >60 Result Comment: eGFR (Estimated GFR) Units of measure: mL/min/1.73 meters squared eGFR is derived from the reexpressed MDRD Study equation using the following parameters: serum creatinine, age, gender and race. The creatinine assay has been calibrated to be traceable to IDMS. An eGFR <60 mL/min/1.73m2 for >3 months is consistent with chronic kidney disease. Refer to KDOQI guidelines for clinical interpretation. In patients with unstable renal function, e.g. those with acute kidney injury, the eGFR may not accurately reflect actual GFR. Performed By: #### B2M, CMP, KLFRS, MPASRM, SEPG #### [facility] [place] [facility] [address] [place], [place] [address] KAPPA/CALDERON,FREE,SER Collected: Status: F Source: [place] 10/10/2017 3:46 PM [facility] REPOSITORY TYPE CODE TESTS RESULT OUT OF REFERENCE UNITS RANGE LAB FKAPS 3.30-19.40 mg/L [place], 9.0 Free, Serum Result Comment: Rarely, increased serum free light chains values may not be detected due to antigen excess phenomenon. Results should always be correlated with other laboratory results and clinical findings. LAB FLAMS 5.7-26.3 mg/L Low Lambda, Free, Serum 4.4 Result Comment: Rarely, increased serum free light chains values may not be detected due to antigen excess phenomenon. Results should always be correlated with other laboratory results and clinical findings. LAB KLRAT 0.26-1.65 High K/L Ratio, 2.05 Serum Performed By: #### B2M, CMP, KLFRS, MPASRM, SEPG #### [facility] [address] [place], [place] [address] MONOCLONL PROTEIN,BL Collected: 10/10/2017 Status: F Source: [place] 3:46 PM [facility] REPOSITORY TYPE CODE TESTS RESULT OUT OF REFERENCE UNITS RANGE LAB MPAIGG 717-1411 mg/dL Low MPA Serum 709 IgG LAB MPAIGA 78-391 mg/dL Low 46 MPA Serum IgA LAB MPAIGM 53-334 mg/dL Low 41 MPA Serum IgM LAB MPAK 534-1267 mg/dL Serum 564 [place] LAB MPAL 253-653 mg/dL Low Serum 243 Lambda LAB MPAKL 1-3 MPA 2.32 Chang/Vizcaino Ratio LAB MPAR No M protein is identified. No MPA M protein is Result identified. LAB MPASTF Staff Reviewed by Review Tee Corrales MD ([id number]) Performed By: #### B2M, CMP, KLFRS, MPASRM, SEPG #### [facility] [address] [place], [place] [address] PROTEIN ELECTROPHOR. Collected: 10/10/2017 Status: F Source: [place] 3:46 PM [facility] REPOSITORY TYPE CODE TESTS RESULT OUT OF REFERENCE UNITS RANGE LAB TPSPE 6.0-8.4 g/dL Total Protein, SPE 6.2 LAB ALBE 3.37-4.23 gm/dL Albumin 3.91 LAB A1GL 0.18-0.31 gm/dL Alpha 1 Globulin 0.19 LAB A2GL 0.52-0.97 gm/dL Alpha 2 Globulin 0.54 LAB BEGL 0.84-1.36 gm/dL Beta Globulin 0.92 LAB GAGL 0.70-1.44 gm/dL Gamma Globulin Low 0.64 LAB SPEINT Interpretation SEE COMMENT Result Comment: No definitive M protein is identified on protein electrophoresis. LAB LOC M Protein N/A Location LAB GPERDL 0.00 gm/dL M Wilder 0.00 Concentratn LAB SPESTF SPE Staff Review Reviewed by Tee Corrales MD ([id number]) Performed By: #### B2M, CMP, KLFRS, MPASRM, SEPG #### [facility] [address] [place] [id number] XR BONE SURVEY Observed: 08/04/2017 Status: F Source: [place] ROUTINE 2:41 PM [facility] REPOSITORY * * *Final Report* * * DATE OF EXAM: Aug 04 2017 2:41PM WRX [id number] - XR BONE SURVEY ROUTINE / PROCEDURE REASON: multiple myeloma * * * * Physician Interpretation * * * * SKELETAL SURVEY: HISTORY: multiple myeloma TECHNIQUE: 19 Films COMPARISON: None RESULT: FINDINGS: SKULL: Negative CERVICAL SPINE: Surgical hardware again noted in the lower cervical spine. THORACIC SPINE: Moderate disc space narrowing in the lower thoracic levels. Questionable compression deformity of the lower thoracic vertebral bodies probably unchanged. LUMBAR SPINE: Kyphoplasty L2 level again noted. Moderate disc space narrowing L5-S1 level. Moderate degenerative changes in the posterior elements RIBS: Negative AP HUMERI: Negative AP FOREARMS: Negative AP PELVIS: Negative AP FEMORAL: Focal irregularity midshaft of the RIGHT femur mixed lucent and sclerotic centrally. AP TIBIA AND FIBULA: Negative IMPRESSION: No significant interval change 1. Focal lesion in the RIGHT femoral shaft similar to the previous study 2. No new lytic lesions 3. No evidence of paraspinal or extrapleural masses. Prosthetics Lab Technician: ALEM Transcribe Date/Time: Aug 08 2017 11:05A Dictated by : FIDELIA COBURN DO This examination was interpreted and the report reviewed and electronically signed by: FIDELIA COBURN DO on Aug 08 2017 11:17AM EST [id number] Observed: 08/04/2017 Status: COMPLETED Source: [place] 2:10 PM [facility] REPOSITORY HNO ID: [id number] Author: Yudith Fay Rt Service: (none) Author Type: (none) Type: Progress Notes Filed: 08/04/2017 2:42 PM Note Text: Radiology Service Progress Note PATIENT NAME: Kaitlynn Choudhury DATE OF SERVICE: August 04, 2017 TIME: 2:10 PM PATIENT IDENTITY VERIFICATION COMPLETED USING TWO (2) METHODS: Patient confirmed name verbally and Date of . PATIENT GENDER DATA: Male PATIENT RELEVANT IMPLANT DATA REVIEWED: Not Applicable RADIOLOGY DEPARTMENT: General X-ray: Exam(s) Completed: Bone Survey PERIPHERAL IV DATA: Not applicable SIGNED BY: Yudith Fay Rt August 04, 2017 2:10 PM PROGRESS Observed: 07/25/2017 Status: COMPLETED Source: [place] 2:30 PM [facility] REPOSITORY HNO ID: [id number] Author: Patricia Lora) Shasha Service: (none) Author Type: Nurse Practitioner Type: Progress Notes Filed: 07/26/2017 8:29 AM Note Text: Chief Complaint Patient presents with: Established Patient HPI: Kaitlynn Choudhury is a 56 year old male who presents here today for evaluation for chemotherapy tomorrow. Per Dr. Newton's previous note: Diagnosis: 1) Multiple myeloma t(11;14) IgG kappa. ? Bone marrow biopsy 2013: [place] restricted plasma cells. Could not quantify well--bloody aspirate, but nearly all plasma cells. Flow cytometry confirmed. FISH positive for IGH/CCND1 t(11;14). ? Initial bone survey IMPRESSION: 1. Suggest lucent or lytic lesion midshaft RIGHT femur 2. Question of a vague lucency in the distal femur on the LEFT side 3. Lucency projecting over L2 and a lateral view may be due to bowel gas. CT or MRI would be suggested since there was concern with this area on an outside study. 4. No evidence of paraspinal or extrapleural masses. HPI: The patient is a 56-year-old male who had cervical fusion surgery about 4 years prior to presentation here. Had been seeing a [facility] physician for about a year and half for low back pain. ? 2013, he was having more pain and presented to the ED at [facility]. CT scan A/P done 09/15/2013 revealed a normal-appearing liver as well as gallbladder next her hepatobiliary system. There was splenomegaly with the spleen measuring 16.5 cm in length. The only other abnormality was a diffuse degenerative changes of visualized lumbar spine with a 2.5 cm lucent lesion on the right side of the L2 vertebral body. There was minimal cortical disruption anterior laterally in the lesion was not present in a prior MRI study of 07/30/2012. ? CBC was significant only for mild increase in platelets. ? Had bone scan done as outpatient 09/19/2013 that showed mild increase in activity in mid right femur of questionable etiology. ? Back pain was the only symptom he had--Started working out more in April and was purposely trying to lose weight. ? Initial therapy with Rd. ? Underwent autologous SCT--Patient's stem cells were mobilized with filgrastim and plerixafor. Patient collected CD34/kg 5.60 x 106 over 1 collection day. Nausea, vomiting, diarrhea and headache after plerixafor. ? 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 Day: +11. Counts recovered. Discharge today. Protocol(s): Auto 3422 1C Melphalan 200 Preparative regimen: Melphalan Mobilization regimen: G+P Stem cell source: apheresis CD34 cell dose (x10e6/kg): 5.6 ? Tolerated well with mild mucositis. No NF. N/V with melphalan. ? Previous therapy: 1) Rd. 2) Autologous BMT. 3) Revlimid maintenance through 08/2016. Stopped due to diarrhea. ? Current therapy: 1) Pamidronate (Zometa caused severe flu-like symptoms). ? I don't have much energy. I really want to work out but after work I just don't have it in me. Pt. is followed by CPM for back/neck pain. Pt. admits to taking hydroxycut to try to lose wt. and adds that the last time he took it his Liver func were elevated-he was told by his PCP to not take it again. He has been taking it for the past few weeks. Appetite:it's wonderful. Energy level:horrible. I will fall asleep around supper time and then off to bed. Denies fevers. I am on antibiotics for a sinus infection. taking cephalexin Mouth:denies sores Resp:denies cough or sob Cardiac:denies chest pain/palpitations GI:denies abd pain, n/v, moving bowels regularly :denies dysuria/hematuria Extrem:low back pain, lower neck-I will feel locked up. Followed by CPM-Dr. Murrieta. Neuro:+neuropathy to hands/feet, L hand 2 fingers worse Skin:denies rashes/lesions Heme:denies bleeding The ROS is otherwise negative. Past medical history, appointments, medications, allergies reviewed. No changes. EXAM: BP 146/98 Pulse 61 Temp 36.4 ?C (97.6 ?F) (Tympanic) Wt 111.6 kg (246 lb) BMI 34.44 kg/m2 APPEARANCE Well appearing, alert, in no acute distress, well-hydrated, well nourished. MOUTH no mucositis HEART RRR with normal S1 and S2, no murmurs LUNG clear to auscultation LYMPH NODES No cervical lymphadenopathy, No supraclavicular lymphadenopathy and No axillary lymphadenopathy. ABDOMEN bowel sounds normoactive, no bruits, soft, non-tender, non-distended, without organomegaly or palpable masses EXTREMITIES No edema NEURO Awake, alert and oriented x 3, Normal gait and No involuntary motions. SKIN Skin color, texture, turgor normal, no suspicious rashes or lesions LABS: Component Latest Ref Rng AND Units 04/25/2017 07/19/2017 WBC, [place] 3.70 - 11.00 k/uL 3.50 (L) 3.09 (L) RBC, [place] 4.20 - 6.00 m/uL 4.15 (L) 4.06 (L) Hemoglobin, [place] 13.0 - 17.0 g/dL 13.2 12.9 (L) Hematocrit, [place] 39.0 - 51.0 % 38.4 (L) 38.0 (L) MCV, [place] 80.0 - 100.0 fL 92.5 93.6 MCH, [place] 26.0 - 34.0 pg 31.8 31.8 MCHC, [place] 30.5 - 36.0 g/dL 34.4 33.9 RDW, [place] 11.5 - 15.0 % 13.9 14.8 Platelet Cnt, [place] 150 - 400 k/uL 136 (L) 150 MPV, [place] 9.0 - 12.7 fL 8.6 (L) 9.0 Absol Gran Count 1.45 - 7.50 k/uL 2.46 1.71 Component Latest Ref Rng AND Units 04/25/2017 07/19/2017 Protein, Total 6.3 - 8.0 g/dL 6.7 6.9 Albumin 3.9 - 4.9 g/dL 4.3 4.4 Calcium 8.5 - 10.2 mg/dL 9.4 9.4 Bilirubin, Total 0.2 - 1.3 mg/dL 0.6 0.8 Alkaline Phosphatase 36 - 108 U/L 100 92 AST 14 - 40 U/L 31 95 (H) Glucose 74 - 99 mg/dL 95 86 BUN 9 - 24 mg/dL 16 19 Creatinine 0.73 - 1.22 mg/dL 1.02 1.00 Sodium 136 - 144 mmol/L 142 139 Potassium 3.7 - 5.1 mmol/L 3.8 4.2 Chloride 97 - 105 mmol/L 103 100 CO2 22 - 30 mmol/L 25 25 Anion Gap 9 - 18 mmol/L 14 14 ALT 10 - 54 U/L 72 (H) 100 (H) eGFR- >60 >60 eGFR-All Other Races . >60 >60 Component Latest Ref Rng AND Units 02/03/2017 04/25/2017 07/19/2017 B2 Microglobulin 0.8 - 2.2 mg/L 1.6 1.8 1.9 Component Latest Ref Rng AND Units 02/03/2017 04/25/2017 07/19/2017 [place] Free, Serum 3.30 - 19.40 mg/L 6.3 6.0 8.4 Lambda Free, Serum 5.7 - 26.3 mg/L 5.5 (L) 5.5 (L) 5.3 (L) K/L Ratio, Serum 0.26 - 1.65 1.15 1.09 1.58 Component Latest Ref Rng AND Units 04/25/2017 07/19/2017 Result ([facility]) No M protein is identified. No M protein is identified. No M protein is identified. Interpretation ([facility]) Staff Review ([facility]) Reviewed by Qasim Hernadez M.D. ([id number]) Reviewed by Raghu Lopez MD. ([id number]) Component Latest Ref Rng AND Units 04/25/2017 07/19/2017 Protein, Urine Random 0 - 20 mg/dL <4 16 Albumin, Urine (Prot Electro) % 47.6 43.6 Alpha 1 Globulin, Urine >0 % 1.7 4.1 Alpha 2 Globulin, Urine % 14.7 21.9 Beta Globulin, Urine % 21.7 19.5 Gamma Globulin, Urine % 14.3 10.9 Interpretation (Urine Electro) SEE COMMENT SEE COMMENT Staff Review (Urine Electro) Reviewed by Qasim Hernadez M.D. ([id number]) Reviewed by Raghu Lopez MD. ([id number]) Result ([facility]) No M protein is identified. Interpretation ([facility]) Staff Review ([facility]) ASSESSMENT/PLAN: 1. Multiple myeloma in remission (HCC) - ICD9: 203.01, ICD10: C90.[address] Newton's previous note: Had lytic bone lesions with no other end organ damage. Tolerated and responding to Revlimid well. Resolution of low level serum MP following first cycle. s/p ASCT. -Maintenance Revlimid stopped after 2 years of therapy secondary to ongoing diarrhea. -I reviewed his lab work with him today in detail--remains in remission. -Did not get bone survey in January. Plan: -Pamidronate every 3 months. -Recheck myeloma labs/bone survey in 3 months. ? Supportive care: No anemia. No hypercalcemia. Standard risk for VTE risk--Off ASA. No ID issues at present--no longer has need for shingles prophylaxis. ? He will continue following under the care of pain management. I will not be prescribing narcotic medications. - Reviewed labs with pt. - Pt. advised to continue pain mgmt. with Dr. Murrieta. - Proceed as scheduled tomorrow. Has been tolerating pamidronate well. - Advised pt. to have bone survey soon. Overdue-pt. states that he doesn't want to wait in line at radiology to have it done. - Pamidronate every 3 months. - Recheck myeloma labs/CBC/CMP in 3 months prior to next treatment. - Pt. aware to call office with any questions/concerns. The patient indicates understanding of these issues and agrees with the plan. Patricia Pulliam APRN.SAP SECURITY CONSULTANT CNOVSP Observed: 07/25/2017 Status: COMPLETED Source: [place] 2:00 PM [facility] REPOSITORY Visit (SP) Office ([facility]) KAITLYNN CHOUDHURY ([id number]) 1960 M TRN Date Time Provider Department 07/25/17 2:00 PM PATRICIA PULLIAM (TOÑA) [facility] During your visit today, we recorded the following information about you: Temperature Pulse Blood pressure Weight 97.6 degrees 61/minute 146/98 111.6 kg Patricia Pulliam APRN.CNP 07/26/2017 8:29 AM Signed Chief Complaint Patient presents with: Established Patient HPI: Kaitlynn Choudhury is a 56 year old male who presents here today for evaluation for chemotherapy tomorrow. Per Dr. Newton's previous note: Diagnosis: 1) Multiple myeloma t(11;14) IgG kappa. ? Bone marrow biopsy 2013: [place] restricted plasma cells. Could not quantify well--bloody aspirate, but nearly all plasma cells. Flow cytometry confirmed. FISH positive for IGH/CCND1 t(11;14). ? Initial bone survey IMPRESSION: 1. Suggest lucent or lytic lesion midshaft RIGHT femur 2. Question of a vague lucency in the distal femur on the LEFT side 3. Lucency projecting over L2 and a lateral view may be due to bowel gas. CT or MRI would be suggested since there was concern with this area on an outside study. 4. No evidence of paraspinal or extrapleural masses. HPI: The patient is a 56-year-old male who had cervical fusion surgery about 4 years prior to presentation here. Had been seeing a [facility] physician for about a year and half for low back pain. ? 2013, he was having more pain and presented to the ED at [facility]. CT scan A/P done 09/15/2013 revealed a normal-appearing liver as well as gallbladder next her hepatobiliary system. There was splenomegaly with the spleen measuring 16.5 cm in length. The only other abnormality was a diffuse degenerative changes of visualized lumbar spine with a 2.5 cm lucent lesion on the right side of the L2 vertebral body. There was minimal cortical disruption anterior laterally in the lesion was not present in a prior MRI study of 07/30/2012. ? CBC was significant only for mild increase in platelets. ? Had bone scan done as outpatient 09/19/2013 that showed mild increase in activity in mid right femur of questionable etiology. ? Back pain was the only symptom he had--Started working out more in April and was purposely trying to lose weight. ? Initial therapy with Rd. ? Underwent autologous SCT--ANDquot;Patient's stem cells were mobilized with filgrastim and plerixafor. Patient collected CD34/kg 5.60 x 106 over 1 collection day. Nausea, vomiting, diarrhea and headache after plerixafor. ? 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 Day: +11. Counts recovered. Discharge today. Protocol(s): Auto 3422 1C Melphalan 200 Preparative regimen: Melphalan Mobilization regimen: G+P Stem cell source: apheresis CD34 cell dose (x10e6/kg): 5.6 ? Tolerated well with mild mucositis. No NF. N/V with melphalan. ? Previous therapy: 1) Rd. 2) Autologous BMT. 3) Revlimid maintenance through 08/2016. Stopped due to diarrhea. ? Current therapy: 1) Pamidronate (Zometa caused severe flu-like symptoms). ? ANDquot;I don't have much energy. I really want to work out but after work I just don't have it in me.ANDquot; Pt. is followed by CPM for back/neck pain. Pt. admits to taking hydroxycut to try to lose wt. and adds that the last time he took it his Liver func were elevated-he was told by his PCP to not take it again. He has been taking it for the past few weeks. Appetite:ANDquot;it's wonderful.ANDquot; Energy level:ANDquot;horrible.ANDquot; ANDquot;I will fall asleep around supper time and then off to bed.ANDquot; Denies fevers. ANDquot;I am on antibiotics for a sinus infection.ANDquot; taking cephalexin Mouth:denies sores Resp:denies cough or sob Cardiac:denies chest pain/palpitations GI:denies abd pain, n/v, moving bowels regularly :denies dysuria/hematuria Extrem:low back pain, lower neck-ANDquot;I will feel locked up.ANDquot; Followed by CPM-Dr. Murrieta. Neuro:+neuropathy to hands/feet, L hand 2 fingers worse Skin:denies rashes/lesions Heme:denies bleeding The ROS is otherwise negative. Past medical history, appointments, medications, allergies reviewed. No changes. EXAM: BP 146/98 Pulse 61 Temp 36.4 ?C (97.6 ?F) (Tympanic) Wt 111.6 kg (246 lb) BMI 34.44 kg/m2 APPEARANCE Well appearing, alert, in no acute distress, well- hydrated, well nourished. MOUTH no mucositis HEART RRR with normal S1 and S2, no murmurs LUNG clear to auscultation LYMPH NODES No cervical lymphadenopathy, No supraclavicular lymphadenopathy and No axillary lymphadenopathy. ABDOMEN bowel sounds normoactive, no bruits, soft, non-tender, non-distended, without organomegaly or palpable masses EXTREMITIES No edema NEURO Awake, alert and oriented x 3, Normal gait and No involuntary motions. SKIN Skin color, texture, turgor normal, no suspicious rashes or lesions LABS: Component Latest Ref Rng ANDamp; Units 04/25/2017 07/19/2017 WBC, [place] 3.70 - 11.00 k/uL 3.50 (L) 3.09 (L) RBC, [place] 4.20 - 6.00 m/uL 4.15 (L) 4.06 (L) Hemoglobin, [place] 13.0 - 17.0 g/dL 13.2 12.9 (L) Hematocrit, [place] 39.0 - 51.0 % 38.4 (L) 38.0 (L) MCV, [place] 80.0 - 100.0 fL 92.5 93.6 MCH, [place] 26.0 - 34.0 pg 31.8 31.8 MCHC, [place] 30.5 - 36.0 g/dL 34.4 33.9 RDW, [place] 11.5 - 15.0 % 13.9 14.8 Platelet Cnt, [place] 150 - 400 k/uL 136 (L) 150 MPV, [place] 9.0 - 12.7 fL 8.6 (L) 9.0 Absol Gran Count 1.45 - 7.50 k/uL 2.46 1.71 Component Latest Ref Rng ANDamp; Units 04/25/2017 07/19/2017 Protein, Total 6.3 - 8.0 g/dL 6.7 6.9 Albumin 3.9 - 4.9 g/dL 4.3 4.4 Calcium 8.5 - 10.2 mg/dL 9.4 9.4 Bilirubin, Total 0.2 - 1.3 mg/dL 0.6 0.8 Alkaline Phosphatase 36 - 108 U/L 100 92 AST 14 - 40 U/L 31 95 (H) Glucose 74 - 99 mg/dL 95 86 BUN 9 - 24 mg/dL 16 19 Creatinine 0.73 - 1.22 mg/dL 1.02 1.00 Sodium 136 - 144 mmol/L 142 139 Potassium 3.7 - 5.1 mmol/L 3.8 4.2 Chloride 97 - 105 mmol/L 103 100 CO2 22 - 30 mmol/L 25 25 Anion Gap 9 - 18 mmol/L 14 14 ALT 10 - 54 U/L 72 (H) 100 (H) eGFR- ANDgt;60 ANDgt;60 eGFR-All Other Races . ANDgt;60 ANDgt;60 Component Latest Ref Rng ANDamp; Units 02/03/2017 04/25/2017 07/19/2017 B2 Microglobulin 0.8 - 2.2 mg/L 1.6 1.8 1.9 Component Latest Ref Rng ANDamp; Units 02/03/2017 04/25/2017 07/19/2017 [place] Free, Serum 3.30 - 19.40 mg/L 6.3 6.0 8.4 Lambda Free, Serum 5.7 - 26.3 mg/L 5.5 (L) 5.5 (L) 5.3 (L) K/L Ratio, Serum 0.26 - 1.65 1.15 1.09 1.58 Component Latest Ref Rng ANDamp; Units 04/25/2017 07/19/2017 Result ([facility]) No M protein is identified. No M protein is identified. No M protein is identified. Interpretation ([facility]) Staff Review ([facility]) Reviewed by Qasim Hernadez M.D. ([id number]) Reviewed by Raghu Lopez MD. ([id number]) Component Latest Ref Rng ANDamp; Units 04/25/2017 07/19/2017 Protein, Urine Random 0 - 20 mg/dL ANDlt;4 16 Albumin, Urine (Prot Electro) % 47.6 43.6 Alpha 1 Globulin, Urine ANDgt;0 % 1.7 4.1 Alpha 2 Globulin, Urine % 14.7 21.9 Beta Globulin, Urine % 21.7 19.5 Gamma Globulin, Urine % 14.3 10.9 Interpretation (Urine Electro) SEE COMMENT SEE COMMENT Staff Review (Urine Electro) Reviewed by Qasim Hernadez M.D. ([id number]) Reviewed by Raghu Lopez MD. ([id number]) Result ([facility]) No M protein is identified. Interpretation ([facility]) Staff Review ([facility]) ASSESSMENT/PLAN: 1. Multiple myeloma in remission (HCC) - ICD9: 203.01, ICD10: C90.[address] Newton's previous note: Had lytic bone lesions with no other end organ damage. Tolerated and responding to Revlimid well. Resolution of low level serum MP following first cycle. s/p ASCT. -Maintenance Revlimid stopped after 2 years of therapy secondary to ongoing diarrhea. -I reviewed his lab work with him today in detail--remains in remission. -Did not get bone survey in January. Plan: -Pamidronate every 3 months. -Recheck myeloma labs/bone survey in 3 months. ? Supportive care: No anemia. No hypercalcemia. Standard risk for VTE risk--Off ASA. No ID issues at present--no longer has need for shingles prophylaxis. ? He will continue following under the care of pain management. I will not be prescribing narcotic medications. - Reviewed labs with pt. - Pt. advised to continue pain mgmt. with Dr. Murrieta. - Proceed as scheduled tomorrow. Has been tolerating pamidronate well. - Advised pt. to have bone survey soon. Overdue-pt. states that he doesn't want to wait in line at radiology to have it done. - Pamidronate every 3 months. - Recheck myeloma labs/CBC/CMP in 3 months prior to next treatment. - Pt. aware to call office with any questions/concerns. The patient indicates understanding of these issues and agrees with the plan. Patricia Pulliam APRN.SAP SECURITY CONSULTANT Referring Provider: AGUSTIN NEWTON [[id number]] Allergies As of Date: 07/25/2017 Noted Allergy Reaction ZOMETA (ZOLEDRONIC ACID) 11/21/2013 14 - Other: See Comments Comments: Severe chest pain, nausea, body aches, seizures. Tolerated pamidronate. PENICILLINS 09/27/2013 4 - Hives Date Reviewed: 07/25/2017 Reviewed by: Patricia (Toña) Shasha - Fully Assessed Reason for Visit: Established Patient [[id number]] Primary Visit Diagnosis:Multiple myeloma in remission (HCC) [C90.01] Follow-up and Disposition History Recorded Prescriptions as of 07/25/2017 Sig: HYDROCODONE 5 MG-ACETAMINOPHE* Take 1 tablet by mouth three * ACETAMINOPHEN 500 MG TABLET Take 1,000 mg by mouth twice * ONDANSETRON HCL 8 MG TABLET Take 1 tablet by mouth every * NEBIVOLOL 10 MG TABLET Take 10 mg by mouth once hafsa* Problem List As Of Date 07/25/2017 Noted Resolved Splenomegaly [R16.1] INVALID FOR* Abnormal bone radiograph [R93.7] INVALID FOR* Lytic lesion of bone on x-ray [M89.9] INVALID FOR* Multiple myeloma (HCC) [C90.00] INVALID FOR* Priority: B More... Chronic back pain greater than 3 months duratio*INVALID FOR* Chronic pain [G89.29] INVALID FOR* Priority: D More... Autologous bone marrow transplantation status (*INVALID FOR* Priority: A More... Hypertension [I10] INVALID FOR* Priority: D More... Immunodeficiency (HCC) [D84.9] INVALID FOR* Priority: A More... CINV (chemotherapy-induced nausea and vomiting)*INVALID FOR* Priority: C More... Constipation [K59.00] INVALID FOR* More... Pancytopenia due to chemotherapy (HCC) [D61.810]INVALID FOR* More... Hypokalemia [E87.6] INVALID FOR* More... Transaminitis [R74.0] INVALID FOR* Chronic bilateral low back pain without sciatic*INVALID FOR* Encounter Status:Closed by PATRICIA PULLIAM CNP on 07/26/17 [place] ABS GR + CBC Collected: 07/19/2017 Status: F Source: [place] 3:54 PM [facility] REPOSITORY TYPE CODE TESTS RESULT OUT OF REFERENCE UNITS RANGE LAB WWBC 3.70-11.00 k/uL Low [place] WBC 3.09 LAB WRBC 4.20-6.00 m/uL Low [place] RBC 4.06 LAB WHGB 13.0-17.0 g/dL Low [place] Hemoglobin 12.9 LAB WHCT 39.0-51.0 % Low [place] Hematocrit 38.0 LAB WMCV 80.0-100.0 fL [place] MCV 93.6 LAB WMCH 26.0-34.0 pg [place] MCH 31.8 LAB WMCHC 30.5-36.0 g/dL [place] MCHC 33.9 LAB WRDW 11.5-15.0 % [place] RDW 14.8 LAB WPLT 150-400 k/uL [place] Platelet Cnt 150 LAB WMPV 9.0-12.7 fL [place] MPV 9.0 Result Comment: Test performed at: [facility] [place], [address] [place] [address]. LAB ABGRAN 1.45-7.50 k/uL Absol Gran 1.71 Count B2 MICROGLOBULIN Collected: 07/19/2017 Status: F Source: [place] 3:54 PM [facility] REPOSITORY TYPE CODE TESTS RESULT OUT OF REFERENCE UNITS RANGE LAB B2M 0.8-2.2 mg/L B2 Microglobulin 1.9 Performed By: #### B2M, CMP, KLFRS, MPASRM, SEPG #### [facility] [address] [place] [id number] COMP METABOLIC PANEL Collected: 07/19/2017 Status: F Source: [place] 3:54 PM [facility] REPOSITORY TYPE CODE TESTS RESULT OUT OF REFERENCE UNITS RANGE LAB TP 6.3-8.0 g/dL Protein, Total 6.9 LAB ALB 3.9-4.9 g/dL Albumin 4.4 LAB CA 8.5-10.2 mg/dL Calcium, Total 9.4 LAB TBIL 0.2-1.3 mg/dL Bilirubin, Total 0.8 LAB ALKP 36-108 U/L Alkaline Phosphatase 92 LAB AST 14-40 U/L AST High 95 LAB GLU 74-99 mg/dL Glucose 86 Result Comment: The [place] Diabetes Association (ADA) provides guidance for cutoff values for fasting glucose and random glucose. The ADA defines fasting as no caloric intake for at least 8 hours. Fas ting plasma glucose results between 100 to 125 mg/dL indicate increased risk for diabetes (prediabetes). Fasting plasma glucose results greater than or equal to 126 mg/dL meet the criteria for diagnosis of diabetes. In the absence of unequivocal hyperglycemia, results should be confirmed by repeat testing. In a patient with classic symptoms of hyperglycemia or hyperglycemic crisis, random plasma glucose results greater than or equal to 200 mg/dL meet the criteria for diagnosis of diabetes. Reference: Standards of Medical Care in Diabetes 2016, [place] Diabetes Association. Diabetes Care. 2016.39(Suppl 1). LAB BUN 9-24 mg/dL BUN 19 LAB CRET 0.73-1.22 mg/dL Creatinine 1.00 LAB NA 136-144 mmol/L Sodium 139 LAB K 3.7-5.1 mmol/L Potassium 4.2 LAB CL 97-105 mmol/L Chloride 100 LAB CO2 22-30 mmol/L CO2 25 LAB AGAP 9-18 mmol/L Anion Gap 14 LAB ALT 10-54 U/L ALT High 100 LAB GFRAA eGFR- Amer. >60 LAB GFRNAA . eGFR-All Other Races >60 Result Comment: eGFR (Estimated GFR) Units of measure: mL/min/1.73 meters squared eGFR is derived from the reexpressed MDRD Study equation using the following parameters: serum creatinine, age, gender and race. The creatinine assay has been calibrated to be traceable to IDMS. An eGFR <60 mL/min/1.73m2 for >3 months is consistent with chronic kidney disease. Refer to KDOQI guidelines for clinical interpretation. In patients with unstable renal function, e.g. those with acute kidney injury, the eGFR may not accurately reflect actual GFR. Performed By: #### B2M, CMP, KLFRS, MPASRM, SEPG #### [facility] [place] [facility] [address] [place], [place] [address] KAPPA/CALDERON,FREE,SER Collected: Status: F Source: [place] 07/19/2017 3:54 PM [facility] REPOSITORY TYPE CODE TESTS RESULT OUT OF REFERENCE UNITS RANGE LAB FKAPS 3.30-19.40 mg/L [place], 8.4 Free, Serum Result Comment: Rarely, increased serum free light chains values may not be detected due to antigen excess phenomenon. Results should always be correlated with other laboratory results and clinical findings. LAB FLAMS 5.7-26.3 mg/L Low Lambda, Free, Serum 5.3 Result Comment: Rarely, increased serum free light chains values may not be detected due to antigen excess phenomenon. Results should always be correlated with other laboratory results and clinical findings. LAB KLRAT 0.26-1.65 K/L Ratio, 1.58 Serum Performed By: #### B2M, CMP, KLFRS, MPASRM, SEPG #### [facility] [address] [place], [place] [address] MONOCLONL PROTEIN,BL Collected: 07/19/2017 Status: F Source: [place] 3:54 PM [facility] REPOSITORY TYPE CODE TESTS RESULT OUT OF REFERENCE UNITS RANGE LAB MPAIGG 717-1411 mg/dL Low MPA Serum 599 IgG LAB MPAIGA 78-391 mg/dL Low 38 MPA Serum IgA LAB MPAIGM 53-334 mg/dL Low 30 MPA Serum IgM LAB MPAK 534-1267 mg/dL Low Serum 475 [place] LAB MPAL 253-653 mg/dL Low Serum 222 Lambda LAB MPAKL 1-3 MPA 2.14 Chang/Vizcaino Ratio LAB MPAR No M protein is identified. No MPA M protein is Result identified. LAB MPASTF Staff Reviewed by Review Raghu Lopez MD. ([id number]) Performed By: #### B2M, CMP, KLFRS, MPASRM, SEPG #### [facility] [place] [address], [place] [address] PROTEIN ELECTROPHOR. Collected: 07/19/2017 Status: F Source: [place] 3:54 [facility] REPOSITORY TYPE CODE TESTS RESULT OUT OF REFERENCE UNITS RANGE LAB TPSPE 6.0-8.4 g/dL Total Protein, SPE 6.5 LAB ALBE 3.37-4.23 gm/dL Albumin 4.15 LAB A1GL 0.18-0.31 gm/dL Alpha 1 Globulin 0.25 LAB A2GL 0.52-0.97 gm/dL Alpha 2 Globulin 0.54 LAB BEGL 0.84-1.36 gm/dL Beta Globulin 0.92 LAB GAGL 0.70-1.44 gm/dL Gamma Globulin Low 0.64 LAB SPEINT Interpretation SEE COMMENT Result Comment: No definitive M protein is identified on protein electrophoresis. LAB LOC M Protein N/A Location LAB GPERDL 0.00 gm/dL M Wilder 0.00 Concentratn LAB SPESTF SPE Staff Review Reviewed by Raghu Lopez MD. ([id number]) Performed By: #### B2M, CMP, KLFRS, MPASRM, SEPG #### [facility] [place] [address], [place] [address] MONOCLONAL PROT UR Collected: 07/19/2017 Status: F Source: [place] 3:54 PM [facility] REPOSITORY TYPE CODE TESTS RESULT OUT OF REFERENCE UNITS RANGE LAB UMPA No M protein is identified. No UMPA M protein is Result identified. LAB UMPSTF UMPA Reviewed by Staff Review Raghu Lopez MD. ([id number]) Performed By: #### ADRIÁNMPA, UEPG #### [facility] [address] [place], [place] [address] PROTEIN ELEC,UR RAND Collected: 07/19/2017 Status: F Source: [place] 3:54 PM [facility] REPOSITORY TYPE CODE TESTS RESULT OUT OF REFERENCE UNITS RANGE LAB UTPR 0-20 mg/dL Protein Urine Random 16 LAB UALB % Albumin 43.6 LAB UA1G >0 % Alpha 1 Globulin 4.1 LAB UA2G % Alpha 2 Globulin 21.9 LAB UBEG % Beta Globulin 19.5 LAB UGAG % Gamma Globulin 10.9 LAB UPEINT Interpretation SEE COMMENT Result Comment: No definitive M protein is identified on protein electrophoresis. LAB UPESTF Reviewed by Raghu Staff Review MD. John ([id number]) Performed By: #### URMPA, UEPG #### [facility] [place] [address], [place] [id number] ALLERGIES ALLERGIES DATE TYPE / CODE NAME / CODE REACTION SEVERITY SOURCE 08/17/2016 Drug Penicillins/[id number] Hives Unknown [place] Allergy/416 0476(RXNORM) Community 047708([facility] ED CT) Repository 11/21/2013 DRUG ZOLEDRONIC ACID OTHER: SEE C High [facility] INGREDI/419 Other [place] 000867(SNOM Repository ED CT) 09/27/2013 Drug PENICILLINS HIVES [facility] Class/62907 Other [place] 1003(SNOMED Repository CT) ENCOUNTERS ENCOUNTERS ADMIT/DISCHARGE ACCOUNT ADMITTING ENCOUNTER LOCATION SOURCE NUMBER CLASS 05/09/2018/05/10/19 [id number] Ambulatory [address] Repository 05/09/2018/05/10/19 [id number] Ambulatory [facility] [place] Repository 05/02/2018/05/03/19 [id number] Ambulatory [facility] [place] Repository 05/01/2018/05/02/19 [id number] Ambulatory [facility] [place] Repository 05/01/2018/05/02/19 [id number] Ambulatory [facility] [place] Repository 04/25/2018/04/26/19 [id number] Ambulatory [facility] [place] Repository 04/25/2018/04/25/19 [id number] Ambulatory [facility] [place] Repository 04/18/2018/04/19/20 [id number] Ambulatory [facility] [place] Repository 04/18/2018/04/19/20 [id number] Ambulatory [facility] [place] Repository 04/11/2018/04/12/20 [id number] Ambulatory [facility] [place] Repository 04/11/2018/04/12/20 [id number] Ambulatory [facility] [place] Repository 04/04/2018/04/05/20 [id number] Ambulatory [facility] [place] Repository 04/02/2018 [id number] Ambulatory [facility] ing:LABSPEC Repository 04/02/2018/04/03/20 [id number] Ambulatory [facility] [place] Repository 04/02/2018/04/03/20 [id number] Ambulatory [place] [facility] [place] Repository 03/26/2018/03/29/20 [id number] Ambulatory [place] [facility] [place] Repository 03/20/2018 [id number] Ambulatory [facility] [place] Repository 03/20/2018 [id number] Ambulatory [place] [facility] [place] Repository 03/14/2018/03/14/20 [id number] AGUSTIN [place] Ambulatory [facility] [place] Repository 02/28/2018/03/01/20 [id number] Ambulatory [facility] [place] Repository 02/15/2018/02/16/20 [id number] Ambulatory [facility] [place] Repository 02/15/2018/02/16/20 [id number] Ambulatory [facility] [place] Repository 01/08/2018/01/12/20 [id number] Ambulatory [facility] [place] Repository 01/02/2018/01/04/20 [id number] Ambulatory [address] [place] Repository 10/30/2017/11/02/19 [id number] Ambulatory [address] [place] Repository 10/23/2017/10/25/19 [id number] Ambulatory [address] [place] Repository 10/16/2017/10/19/19 [id number] Ambulatory [address] [place] Repository 10/10/2017/10/11/19 [id number] Ambulatory [address] [place] Repository 08/04/2017/08/05/19 [id number] Ambulatory [address] [place] Repository 07/26/2017/07/28/19 [id number] Ambulatory [address] [place] Repository 07/25/2017/07/27/19 [id number] Ambulatory [address] [place] Repository 07/19/2017/07/21/19 [id number] Ambulatory [address] Repository PAYERS PAYERS ENCOUNTER GUARANTOR PAYER SUBSCRIBER SOURCE 04/02/2018 KAITLYNN [id number] Primary KAITLYNN BLOOMOB: [place] Insurance:HEALTH PLAN [id number] [address]Ojh: MANSFIELDPolic Number: Repository [id number] () Date: [facility] [address] [place] [id number]: 04/02/2018 Secondary NOT GIVENUNK [place] Insurance:SELF PAY [facility] Number: Effective Repository Date:2018-04-02
== END ==
PROVIDERS: Family Provider Family Medicine; PCP Family Medicine; Referring Provider Internal Medicine Hematology & Oncology; Visit Provider Internal Medicine Hematology & Oncology
DX: C90.00 Multiple myeloma not having achieved remission (principal)
CPT/HCPCS: 86850; 86900

== ENCOUNTER → 2020-01-07 12:35 | Outpatient (CLI) | payer OTHER, SELFPAY ==
[2016-08-17 17:18] VITALS: BMI 31.7
[2020-01-07 13:40] LABS: Amphetamine Urine VISTA NEGATIVE (<1000 ng/mL); Barbiturate Urine VISTA NEGATIVE (< 200 ng/mL); Benzodiazepine Urine VISTA NEGATIVE (< 200 ng/mL); Cocaine Urine VISTA NEGATIVE (< 300 ng/mL); Ecstacy Urine VISTA NEGATIVE (< 500 ng/mL); Methadone Urine VISTA NEGATIVE (< 300 ng/mL); PCP Urine VISTA NEGATIVE (< 25 ng/mL); THC Urine VISTA NEGATIVE (< 50 ng/mL); Vista UDS pH Range 5
== END ==
PROVIDERS: PCP Family Medicine; Referring Provider Anesthesiology Pain Medicine; Visit Provider Anesthesiology Pain Medicine
DX: F11.20 Opioid dependence, uncomplicated (principal)
CPT/HCPCS: 80307

== ENCOUNTER → 2020-07-06 09:44 | Outpatient (CLI) | payer OTHER, SELFPAY ==
[2016-08-17 17:18] VITALS: BMI 31.7
[2020-07-06 10:56] LABS: Amphetamine Urine VISTA NEGATIVE (<1000 ng/mL); Barbiturate Urine VISTA NEGATIVE (< 200 ng/mL); Benzodiazepine Urine VISTA NEGATIVE (< 200 ng/mL); Ecstacy Urine VISTA NEGATIVE (< 500 ng/mL); Methadone Urine VISTA NEGATIVE (< 300 ng/mL); PCP Urine VISTA NEGATIVE (< 25 ng/mL); THC Urine VISTA NEGATIVE (< 50 ng/mL); Vista UDS pH Range 6
[2020-07-06 10:57] LABS: Cocaine Urine VISTA NEGATIVE (< 300 ng/mL)
== END ==
PROVIDERS: PCP Family Medicine; Referring Provider Anesthesiology Pain Medicine; Visit Provider Anesthesiology Pain Medicine
DX: F11.20 Opioid dependence, uncomplicated (principal)
CPT/HCPCS: 80307

== ENCOUNTER → 2021-03-01 11:00 | Outpatient (CLI) | payer OTHER, SELFPAY ==
[2021-03-01 12:51] LABS: Amphetamine Urine VISTA NEGATIVE (<1000 ng/mL); Barbiturate Urine VISTA NEGATIVE (< 200 ng/mL); Benzodiazepine Urine VISTA NEGATIVE (< 200 ng/mL); Cocaine Urine VISTA NEGATIVE (< 300 ng/mL); Ecstacy Urine VISTA NEGATIVE (< 500 ng/mL); Methadone Urine VISTA NEGATIVE (< 300 ng/mL); PCP Urine VISTA NEGATIVE (< 25 ng/mL); THC Urine VISTA NEGATIVE (< 50 ng/mL); Vista UDS pH Range 7
== END ==
PROVIDERS: PCP Family Medicine; Referring Provider Anesthesiology Pain Medicine; Visit Provider Anesthesiology Pain Medicine
DX: F11.20 Opioid dependence, uncomplicated (principal)
CPT/HCPCS: 80307

== ENCOUNTER → 2021-11-17 | Outpatient (CLI) | payer OTHER, SELFPAY ==
[2021-11-17 12:36] LABS: Amphetamine Urine VISTA NEGATIVE (<1000 ng/mL); Barbiturate Urine VISTA NEGATIVE (< 200 ng/mL); Benzodiazepine Urine VISTA NEGATIVE (< 200 ng/mL); Cocaine Urine VISTA NEGATIVE (< 300 ng/mL); Ecstacy Urine VISTA NEGATIVE (< 500 ng/mL); Methadone Urine VISTA NEGATIVE (< 300 ng/mL); PCP Urine VISTA NEGATIVE (< 25 ng/mL); THC Urine VISTA NEGATIVE (< 50 ng/mL); Vista UDS pH Range 5
== END | disposition home or self-care (01) ==
LOC: LAB 11:19
PROVIDERS: PCP Family Medicine; Referring Provider Anesthesiology Pain Medicine; Visit Provider Anesthesiology Pain Medicine
DX: F11.20 Opioid dependence, uncomplicated (principal)
CPT/HCPCS: 80307

== ENCOUNTER → 2022-07-20 | Outpatient (CLI) | payer OTHER, SELFPAY ==
[2022-07-20 09:42] LABS: ALB/GLOB Ratio 1.4 RATIO (0.9-2.4); AST(SGOT) 26 U/L (15-37); Alanine Aminotransfer ALT/SGPT 50 U/L (16-61); Albumin, Serum 3.6 g/dL (3.2-5.0); Alkaline Phosphatase 81 U/L (45-117); Anion Gap 7 (5-15); BUN 15 mg/dL (7-18); BUN/Creat Ratio 15.7 RATIO (10-20); Calcium,Total 8.8 mg/dL (8.5-10.1); Chloride 105 mmol/L (98-107); Creatinine, Serum 0.96 mg/dL (0.70-1.30); EST Glomerular Filtration Rate 85 mL/min (>60); Est Glom Filt Rate - Afr Amer 103 mL/min (>60); Globulin 2.6 g/dL (2.2-4.2); Glucose 115 mg/dL (74-106); Potassium 3.5 mmol/L (3.5-5.1); Protein, Total 6.2 g/dL (6.4-8.2); Sodium Level 141 mmol/L (136-145)
== END | disposition home or self-care (01) ==
LOC: LABSPEC 08:55
PROVIDERS: PCP Family Medicine; Referring Provider Internal Medicine Hematology & Oncology; Visit Provider Internal Medicine Hematology & Oncology
DX: C90.02 Multiple myeloma in relapse (principal)
CPT/HCPCS: 80053

== ENCOUNTER → 2023-06-01 | Outpatient (CLI) | payer OTHER, SELFPAY ==
[2023-06-01 12:26] LABS: Amphetamine Urine VISTA NEGATIVE (<1000 ng/mL); Barbiturate Urine VISTA NEGATIVE (< 200 ng/mL); Benzodiazepine Urine VISTA NEGATIVE (< 200 ng/mL); Cocaine Urine VISTA NEGATIVE (< 300 ng/mL); Ecstacy Urine VISTA NEGATIVE (< 500 ng/mL); Methadone Urine VISTA NEGATIVE (< 300 ng/mL); PCP Urine VISTA NEGATIVE (< 25 ng/mL); THC Urine VISTA NEGATIVE (< 50 ng/mL); Vista UDS pH Range 5
== END | disposition home or self-care (01) ==
LOC: LAB 11:30
PROVIDERS: PCP Physician Assistant; Referring Provider Anesthesiology Pain Medicine; Visit Provider Anesthesiology Pain Medicine
DX: F11.20 Opioid dependence, uncomplicated (principal)
CPT/HCPCS: 80307

== ENCOUNTER → 2024-01-30 | Outpatient (CLI) | payer OTHER, SELFPAY ==
--- NOTE | 2024-01-30 07:00 | PET_ITS ---
EXAMINATION: FDG PET-CT INDICATIONS: A 63-year-old male with a history of multiple myeloma presenting for restaging examination. COMPARISON EXAMINATION: None available. TECHNIQUE: Following the intravenous administration of 13.5 mCi of F-18 deoxyglucose via the left antecubital fossa, multiplanar image acquisitions of the head, neck, chest, abdomen and pelvis to level of mid-foot, lower extremities obtained at one hour post radiopharmaceutical administration contemporaneously interpreted with the current CT of the head, neck, chest, abdomen and pelvis to level of mid-foot, lower extremities dated 01/30/24 via coregistration reveal: SERUM GLUCOSE LEVEL: 80 mg/dl. HEIGHT: 71 inches. WEIGHT: 221 lbs. FINDINGS: Head/Neck: There is no evidence of abnormal increased glucose metabolism in the pharyngeal mucosal space, parapharyngeal space, bilateral-lateral and anterior neck, hypopharynx and distribution of the laryngeal structures. The visualized portion of the cerebral cortical-subcortical structures demonstrate symmetric and preserved glucose metabolism. CHEST: There is no quantitative scintigraphic evidence of abnormal increased glucose metabolism within the context of the bilateral hemithorax pulmonary parenchyma, right and left hemithoracic pleural interface, mediastinal structures and thoracic perihilum.? Prominent radiopharmaceutical concentration is identified in the left ventricular myocardium commensurate with the [place]. Pertinent chest CT findings are as follows. There is atherosclerotic calcification defined in the thoracic aorta without evidence of dilatation-aneurysm formation. Coronary arterial calcification is observed. There are no parenchymal densities-nodules defined in the right and left hemithorax with quantitatively significant increased FDG uptake. Abdomen/Pelvis: Normal physiologic distribution of the radiopharmaceutical is apparent in the hepatic and splenic parenchyma, both renal units, bladder and visualized intestinal tract. Diffuse radiopharmaceutical concentration is noted in all four quadrants of the abdomen and pelvis. Abdomen and pelvis CT findings are as follows. There is atherosclerotic calcification defined in the abdominal aorta without evidence of dilatation-aneurysm formation. Abdominal-pelvic arterial calcification is defined. Calcified phlebolith formation is noted in the left lower hemipelvis. Skeletal: Degenerative changes are noted in the cervical, thoracic and lumbar spine. Apparent vertebroplasty changes are noted in the second lumbar vertebra. There are no sclerotic, sclerotic lytic, and primary lytic changes noted on review of the visualized appendicular, axial skeletal structures. PET/PET/CT Tumor WB Subs IMPRESSION: 1. NEGATIVE EXAMINATION. There is no definitive quantitative scintigraphic evidence of recurrent-viable neoplasm. Electronic Signature Abel Lipscomb D.O. Accurate Quantification of SUVs for this report are calculated using the exclusive [employer], ([place]. Patent No. [id number] [phone] [place] patent [phone] ). Standardization and correction of the FDG SUV metric exclusively available with [employer] intellectual property, allow for vendor non-specific objective quantitative sequential FDG PET-CT comparison and otherwise unobtainable optimization of the sensitivity and specificity of the examination. [email or web address] Electronically Signed: Abel Lipscomb DO at 22:44 EDT ,
== END | disposition home or self-care (01) ==
PROVIDERS: PCP Physician Assistant; Referring Provider Internal Medicine Hematology & Oncology; Visit Provider Internal Medicine Hematology & Oncology
DX: C90.01 Multiple myeloma in remission (principal)
CPT/HCPCS: 78816; A9552

== ENCOUNTER → 2024-03-07 | Outpatient (CLI) | payer OTHER, SELFPAY ==
[2024-03-07 14:20] LABS: Amphetamine Urine VISTA NEGATIVE (<1000 ng/mL); Barbiturate Urine VISTA NEGATIVE (< 200 ng/mL); Benzodiazepine Urine VISTA NEGATIVE (< 200 ng/mL); Cocaine Urine VISTA NEGATIVE (< 300 ng/mL); Ecstacy Urine VISTA NEGATIVE (< 500 ng/mL); Methadone Urine VISTA NEGATIVE (< 300 ng/mL); PCP Urine VISTA NEGATIVE (< 25 ng/mL); THC Urine VISTA NEGATIVE (< 50 ng/mL); Vista UDS pH Range 5
== END | disposition home or self-care (01) ==
PROVIDERS: PCP Physician Assistant; Referring Provider Anesthesiology Pain Medicine; Visit Provider Anesthesiology Pain Medicine
DX: F11.20 Opioid dependence, uncomplicated (principal)
CPT/HCPCS: 80307

== ENCOUNTER → 2024-08-20 | Outpatient (CLI) | payer OTHER, SELFPAY ==
--- NOTE | 2024-08-20 12:00 | PET_ITS ---
EXAM: PET/CT Study CLINICAL HISTORY: 63 y/o M with MYELOMA COMPARISON: PET-CT 01/30/2024. TECHNIQUE: PROCEDURE: Following the intravenous administration of radionucleotide, image acquisition on a dedicated PET/CT unit was performed at one hour post injection. A preliminary CT study encompassing the Skull base, neck, chest, abdomen, pelvis, and proximal thighs was performed for purposes of attenuation correction and anatomic localization. The patient's blood glucose level was 88 mg/dL (allowable range: 50-180 mg/dL). RADIOPHARMACEUTICAL: 14.9 mCi 18F-FDG (Fluorodeoxyglucose F18) IV was injected into patient. FINDINGS: Physiologic uptake: There may be expected metabolic uptake within the brain, tongue and floor of the mouth and larynx/vocal cords, heart, leeann (many normal individuals have hilar uptake in less than 3 nodes with mildly avid hilar nodes less than 2.7 SUV), liver and spleen, system, and GI tract and symmetric muscle uptake. FDG AVID AND NON-AVID LESIONS. Reported avid SUV values (g/mL*) are maximum SUV. Average liver parenchyma SUV: 2.1 Average mediastinal blood pool: 2.1 NECK: No suspicious hypermetabolic lesion. CHEST: No suspicious hypermetabolic lesion. ABDOMEN: No suspicious hypermetabolic lesion. PELVIS: No suspicious hypermetabolic lesion. Other: Mild diffuse uptake throughout the axial and appendicular skeleton, most compatible with G-CSF therapy. No hypermetabolic cutaneous or subcutaneous lesion. Additional CT findings: Mild cardiomegaly. Mild coronary artery and thoracic aortic calcifications. The liver is normal in size. Mild splenomegaly measuring 16.4 cm. Prior cement augmentation of the L2 vertebral body. Mild calcific plaque of the aortoiliac vessels. PET/PET/CT Tumor Base -Thigh Subs IMPRESSION: No hypermetabolic lesion to suggest osseous myeloma or plasmacytoma. Please note the low-dose CT scan was performed to facilitate PET image reconstr uction and anatomic localization and does not replace a diagnostic CT. Any diagnostic CT requested and performed at the time of the PET will be reported separately. Reading Location: [facility]
== END | disposition home or self-care (01) ==
PROVIDERS: PCP Physician Assistant; Referring Provider Internal Medicine Hematology & Oncology; Visit Provider Internal Medicine Hematology & Oncology
DX: C90.02 Multiple myeloma in relapse (principal)
CPT/HCPCS: 78815; A9552